=== PATIENT | female | born 1985 | race Caucasian/White ===

== ENCOUNTER → 2017-12-09 09:12 | Outpatient (CLI) | payer MEDICAID, SELFPAY ==
--- NOTE | 2017-12-09 09:19 | RAD_ITS ---
XR Knee Complete 4 Views or More INDICATION: bilateral knee pain COMPARISON: None TECHNIQUE: 4 views of the left knee including weightbearing FINDINGS: The osseous structures are intact and well aligned. Joint spaces are preserved. No significant joint effusion noted. RAD/Knee 4 or More Views IMPRESSION: Negative plain film examination of the left knee. at 2025 Reported and signed by: Sarah Alcocer MD Electronically Signed: Sarah Alcocer MD at 19:23 EST Tel , Service support ,
--- NOTE | 2017-12-09 09:19 | RAD_ITS ---
XR Knee Complete 4 Views or More INDICATION: bilateral knee pain COMPARISON: None TECHNIQUE: 4 views of the right knee FINDINGS: The osseous structures are intact and well aligned. Joint spaces are preserved. There are no significant degenerative changes. RAD/Knee 4 or More Views IMPRESSION: Negative plain film examination of the right knee. at 0046 Reported and signed by: Sarah Alcocer MD Electronically Signed: Sarah Alcocer MD at 23:45 EST Tel , Service support ,
== END ==
PROVIDERS: Visit Provider Orthopaedic Surgery
DX: M25.561 Pain in right knee (principal); M25.562 Pain in left knee
CPT/HCPCS: 73564

== ENCOUNTER → 2018-05-29 07:17 | Outpatient (CLI) | payer MEDICAID, SELFPAY ==
--- NOTE | 2018-05-29 07:19 | MRI_ITS ---
STUDY: MRI RIGHT KNEE REASON FOR EXAM: Anterior knee pain and grinding for a few years, no specific injury. TECHNIQUE: Standardized fat and water weighted pulse sequences were obtained in all 3 orthogonal planes. COMPARISON: Radiographs 12/09/2017. FINDINGS: Normal medial meniscus. Normal hyaline cartilage of the medial femorotibial compartment. Normal medial femoral condyle and tibial plateau. Normal medial collateral ligamentous complex (MCL). Normal distal semimembranosus, gracilis and semitendinosus tendons. Normal lateral meniscus. Normal hyaline cartilage of the lateral femorotibial compartment. Normal lateral femoral condyle and tibial plateau. Normal proximal tibiofibular articulation. Normal lateral collateral (fibular) ligament. Normal popliteus tendon. Normal biceps femoris tendon. Normal anterior cruciate ligament (ACL). Normal posterior cruciate ligament (PCL). There is mild lateral tilt and slight lateral subluxation of the patella (T2 axial image 13). Normal hyaline cartilage of the patellofemoral compartment. Normal medial and lateral patellar retinaculum. Normal quadriceps tendon. Normal patellar tendon. There is mild edema in Hoffa's fat pad inferior to the lateral aspect of the patellofemoral articulation (T2 sagittal image 6; T2 axial images 16, 17). There is a minimal volume of fluid in the knee joint. The soft tissues are unremarkable. There is a small cyst in the proximal tibia at the insertion site of the posterior cruciate ligament. MRI/Lower Ext Joint Only (Routine) IMPRESSION: Mild lateral tilt and slight lateral subluxation of the patella with mild edema in Hoffa's fat pad inferior to the lateral aspect of the patellofemoral articulation, suggestive of patellofemoral friction syndrome. No demonstrated meniscal tear. Electronically Signed: Kd Rollins MD at 10:11 EDT Tel , Service support ,
== END ==
PROVIDERS: Family Provider Family Medicine; PCP Family Medicine; Visit Provider Orthopaedic Surgery
DX: M22.2X1 Patellofemoral disorders, right knee (principal); M25.561 Pain in right knee; M23.91 Unspecified internal derangement of right knee
CPT/HCPCS: 73721

== ENCOUNTER 2018-06-25 12:00 | Day surgery (SDC) | payer MEDICAID, SELFPAY ==
[2018-06-25] VITALS (7 sets, daily range): BP systolic 112–131; BP diastolic 74–89; PULSE 72–107; RESP 16–22; TEMP 36.4–36.7; O2SAT 95–100; BMI 31.9
[2018-06-25] MEDS: Cefazolin 2 GM in 0.9% Normal Saline 100 ML IV (15:14)
--- NOTE | 2018-06-25 15:22 | PCM.DC.ORTHO ---
Discharge Diet: No Restrictions - remove dressings in 4 days and apply bandaids to incision sites, weight bear as tolerated right leg, follow up in 2 weeks, call with concerns, elevate/ice/ankle pumps at home Discharge Activity: May Not Drive May shower in (days): 1 Ice area for (Minutes): 20 - Every hour while awake. Weight Bearing Status: Weight bearing as tolerated Keep extremity elevated above heart level: Operative Extremity Call your doctor if your incision/area has: Continuous Slow Oozing, Sudden Increased Bleeding, Increased Pain/ Swelling, Increased Redness, Foul Smelling Discharge Call your doctor if you observe: Fever of 101 or Higher, Coldness, Increased Pain, Numbness or Tingling, Change in Color, Calf discomfort Allergies/Adverse Reactions: Allergies No Known Allergies Allergy (Verified 06/18/18 14:25) Medications to take at Discharge multivitamin chewable tablet 2 tab PO QDAY 12/09/17 Hydrocodone Bitart/Apap 5-325 [[place] 5MG-325MG] 1 - 2 tablet PO Q6H PRN PRN 5 Days #40 tablet 06/25/18 Ondansetron [Zofran] 8 mg PO Q8H PRN PRN #20 tab 06/25/18 The following prescriptions were given: Hydrocodone Bitart/Apap 5-325 [[place] 5MG-325MG] 1 - 2 tablet PO Q6H PRN PRN 5 Days #40 tablet PRN Reason: Pain Ondansetron [Zofran] 8 mg PO Q8H PRN PRN #20 tab PRN Reason: Nausea Primary Care Physician: Leonie Estrella [Primary Care Provider] - Test Results: Test results from this visit will be discussed in further detail at your follow-up appointment, if applicable. Please Follow Up With: Chloe Bond, DO - [phone]
--- NOTE | 2018-06-25 15:24 | OP.PCM_ITS ---
Report of Operation Date of Procedure: 06/25/18 Pre-Operative Diagnosis: right knee patellofemoral syndrome/chondromalacia Post-Operative Diagnosis: same Surgery/Procedure Performed:: sark, pat chondroplasty, extensive synovectomy, lateral release machinist/machine builder: Jasper Clifford Type of Anesthesia:: General Anesthesiologist: Teo Izquierdo Estimated Blood Loss (mL): min Fluids Replaced: [id number] Description of Procedure: Preoperative note Patient is a 33-year-old female with continued right knee pain. MRI shows a lateral tracking right knee patella as well as chondral malacia and some impingement syndrome in the anterior lateral recess. Patient is failed conservative treatment like to proceed with right knee arthroscopy repair is indicated. Risks benefits alternatives surgery discussed with patient. Risks including but not limited to blood loss, blood clot, infection, neurovascular injury, failure procedure, loss of life and loss of limb. Patient is aware like proceed with right knee arthroscopy repair is indicated. Operative note Patient seen and examined preoperative holding area. Right leg was marked. Patient brought to the operating room placed supine on the operating table. Signing, anesthesia, antibiotics were administered. Right leg was prepped and draped in usual sterile fashion with a tourniquet around her upper thigh. Timeout was performed. We then created an anterior lateral portal with 11 blade and began our diagnostic arthroscopy. Patella was sitting quite far laterally and she had some grade 2 fibrillated changes on the medial facet as well as the inferior pole of the patella. We then created an anterior medial portal under direct visualization. Her medial femoral condyle medial tibial plateau and medial meniscus were intact and stable to probing. Her ACL and PCL were present within the notch. There are no loose bodies in her gutters. Her lateral meniscus was intact stable probing her lateral femoral condyle lateral tibial plateau were intact as well. She had extensive synovitis in the anterior medial anterior lateral gutters were which were resected with a shaver and a burner. She still sat laterally after and we also did a patella chondroplasty with a shaver. We then performed a lateral release. We then make sure that we coagulated bleeders that we did see. After performed her lateral after performing her right lateral release she had better patellofemoral tracking and centralized the patella perfectly. We then irrigated the knee with Sterile Saline. The Portals Were Closed with Interrupted 4-0 Nylon Suture Sterile Dressings Were Applied. Patient Tolerated Procedure Well There Are No Comp Occasions Patient Transferred Her to Recovery Room in Stable Condition. Tourniquet Was Deflated for Total Working Time of24 mins. Postoperative note Weight-bear as tolerated right leg Ice as much as possible next ankle pumps and elevate as discussed preoperatively Pictures given to family Call with increased pain numbness tingling or further issues arise Follow-up in 2 weeks Pharmacy has prescriptions as This note was generated with [employer] dictation software. It may contain incorrect words, spelling, and punctuation that were not noted in checking the note before signing.
[2018-06-25] MEDS: Bupiv/Epi 0.5% Mpf 30 ML Vial (16:00)
[2018-06-25] MEDS: Mupirocin Ointment 22gm Tube 1 APPLIC (16:00)
== END 2018-06-25 18:57 | disposition home or self-care (01) ==
LOC: SDC 12:01 → AC 12:06
PROVIDERS: Family Provider Family Medicine; PCP Family Medicine; Visit Provider Orthopaedic Surgery
PROC: (CPT 27427; principal; 2018-06-25 13:15)
DX: M22.2X1 Patellofemoral disorders, right knee (principal); M22.8X1 Other disorders of patella, right knee; K21.9 Gastro-esophageal reflux disease without esophagitis; Z98.51 Tubal ligation status
CPT/HCPCS: 29873; 29876; 64447; J7120; A4216; J2405

== ENCOUNTER → 2018-07-08 08:57 | Outpatient (CLI) | payer MEDICAID, SELFPAY ==
--- NOTE | 2018-07-08 09:00 | VDLE_ITS ---
Reason For Study: RLE swelling RIGHT GSV is normal. CFV is compressible, spontaneous, phasic, competent and demonstrates normal augmentation. FV is compressible, spontaneous, phasic, competent and demonstrates normal augmentation. POP V is compressible, spontaneous, phasic, competent and demonstrates normal augmentation. T/P Trunk is compressible. PTV is compressible. RT PerV is compressible. Procedure Exam performed in department. The exam was diagnostic. A preliminary report was called and/or faxed to Dr. Bond @ [phone] @ 9:30 am. Interpretation Summary Deep veins of the right lower extremity are patent and compressible segmentally. There is no evidence of right lower extremity deep vein thrombosis. Valvular competence appears intact within the proximal deep venous system on the right . The right greater saphenous vein appears patent and compressible segmentally. Ordering Physician: Chloe Bond Referring Physician: Leonie Estrella Performed By: Diana Crawley, RACHEL, RVT
== END ==
PROVIDERS: Family Provider Family Medicine; PCP Family Medicine; Visit Provider Orthopaedic Surgery
DX: M79.89 Other specified soft tissue disorders (principal)
CPT/HCPCS: 93971

== ENCOUNTER → 2020-05-30 10:58 | Outpatient (CLI) | payer MEDICAID, SELFPAY ==
--- NOTE | 2020-05-30 10:59 | RAD_ITS ---
STUDY: X-RAY - RIGHT KNEE REASON FOR EXAM: Female, 35 years old. KNEE PAIN TECHNIQUE: 4 view(s) of the knee. COMPARISON: None. FINDINGS: Normal visualized distal femur. Normal visualized proximal tibia and fibula. Normal proximal tibiofibular articulation. Normal medial femorotibial compartment. Normal lateral femorotibial compartment. Normal patellofemoral articulation. The soft tissue structures are unremarkable. RAD/Knee 4 or More Views IMPRESSION: Normal x-ray examination of the knee. Electronically Signed: Sean Carrington, at 11:33 EDT , Service support ,
--- NOTE | 2020-05-30 10:59 | RAD_ITS ---
STUDY: X-RAY - LEFT KNEE REASON FOR EXAM: Female, 35 years old. KNEE PAIN TECHNIQUE: 4 view(s) of the knee. COMPARISON: None. FINDINGS: Normal visualized distal femur. Normal visualized proximal tibia and fibula. Normal proximal tibiofibular articulation. Normal medial femorotibial compartment. Normal lateral femorotibial compartment. Normal patellofemoral articulation. The soft tissue structures are unremarkable. RAD/Knee 4 or More Views IMPRESSION: Normal x-ray examination of the knee. Electronically Signed: Sean Carrington, at 11:32 EDT , Service support ,
== END ==
PROVIDERS: PCP Family Medicine; Referring Provider Physician Assistant; Visit Provider Physician Assistant
DX: M25.561 Pain in right knee (principal); M25.562 Pain in left knee
CPT/HCPCS: 73564

== ENCOUNTER 2022-11-21 14:00 | Outpatient (RCR) | payer MEDICAID, SELFPAY ==
--- NOTE | 2022-09-27 09:59 | HP.PTEVAL ---
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 Date of Evaluation: 09/27/22 Physical Therapist: Mahendra Pemberton - Visit Plan Frequency: 2x /Week Duration: 6 Weeks Plan: Continue with hip, core, and back strengthening. Find direction of preference for right leg if able. Use manual therapy for pain control. - Subjective Pt. is a 37 y.o. female who has been having bilateral hip pain with right worse than left which has been going on since July with no specific injury that she is aware of. Pt. PLOF includes history of hysterectomy this past summer and chronic back pain. She had x-ray of her hips which showed mild uncovering of lateral aspect of the femoral head and mild degenerative changes of pubic symphysis. Pt. will occasionally get radicular pain/numbness down her right leg to her foot which happens a couple times a week. Pt. denies any change in her bowel or bladder function or unexplained weight loss. She has difficulty with ascending/descending stairs, sitting longer than 30 minutes, standing/walking longer than 20-30 minutes, sleeping, lifting things, pushing/pulling, squatting, housework, and yard work. Pt. is currently unemployed but finished school for [employer]. Her goal with physical therapy is to have less pain and figure out what is going on with her hip. She has had previous physical therapy many years ago for her back. Pt. rates right hip and upper leg pain at 4/10 currently, at worst 8/10, at best 3/10 and describes the pain as dull, burning, and achy. She is currently taking Prednisone. Her PMH includes cervical cancer, hysterectomy, right lateral release of knee in 2018, chronic back pain, tubal ligation, gall bladder removed, link surgery for esophagus, fatty lipoma from back removed, skin cancer, and tonsillectomy. Pt. lives with her family. Her hobbies include baking, crafting, and going to concerts. - Objective Posture- Good posture in standing. Palpation- Tenderness over right iliac crest area and whole lumbar spine area. Lumbar flexion x 10- WNL and no change in pain in right upper leg. Lumbar extension x 10- WNL and no change in pain in right upper leg. SB to left and right x 10- WNL and no change in pain in right upper leg. Lumbar rotations- more right hip pain with rotation to left. No change in pain. Hip PROM- WNL bilaterally. Mild tight hamstrings bilaterally. Pelvis and leg length normal in supine. Left hip strength flexion 4+/5, abduction 5/5, adduction 5/5, extension 4+/5, knee flexion 5/5, knee extension 5/5, ankle DF 5/5, PF 5/5. Right hip strength flexion 4+/5, abduction 4+/5, adduction 4+/5, extension 4+/5, knee flexion 5/5, knee extension 5/5, ankle DF 5/5, PF 5/5. Sensation- WNL bilateral lower extremities. Gait- Pt. ambulates with no gait deviations. Special tests- Straight leg raise [-], Well's leg raise [-], Hip scour [+], Hip quadrant [+], MIKE's [+] - Balance/Special Test Scores Lower Extremity Functional Score: 37 - Goals Goal 1:: Pt. will be able to sit for at least 1 hour with pain < 3/10. Goal Time Frame: 4-6 Weeks Goal 2:: Pt. will be able to sleep a full night with no pain. Goal Time Frame: 4-6 Weeks Goal 3:: Pt. will be able to stand for at least 30 minutes with pain < 3/10. Goal Time Frame: 4-6 Weeks Goal 4:: Pt. will be able to lift at least 20# with proper body mechanics and no pain. Goal Time Frame: 4-6 Weeks Goal 5:: Pt. will rate pain at worst at 3/10 with ADL's. Goal Time Frame: 4-6 Weeks Goal 6:: Pt. will improve LEFS score < 40% disability in order to improve ADL's. Goal Time Frame: 4-6 Weeks - Rehabilitation Potential Physical Therapy Diagnosis: Decreased core/back/hip strength and pain Rehabilitation Potential: Good - Anticipated Interventions Patient/Client Instruction: Educate patient on: Condition, Plan of Care, Benefits of Fitness Program For the Purpose of:: To decrease pain, To improve ability to perform ADL's, To improve performance and independence with ADL's, To assume or resume ADL's, To improve tolerance to ADL's Therapeutic Exercise to Include: Strength training, Body mechanics, Postural training, Active ROM, Dynamic Lumbar Stabilization, Ingrid Exercises Comment: Continue with hip, core, and back strengthening. Find direction of preference if having radicular symptoms in right leg. For the Purpose of:: To decrease pain, To improve muscle performance and motor function, To improve ability to perform ADL's, To improve performance and independence with ADL's, To assume or resume ADL's, To improve tolerance to ADL's Functional Training to Include: ADL Training, Functional home training For the Purpose of:: To improve ability to perform ADL's, To improve performance and independence with ADL's, To assume or resume ADL's, To improve tolerance to ADL's Manual Therapy Techniques to Include: Mobilization, Soft tissue mobilization For the Purpose of:: To decrease pain, To improve ability to perform ADL's, To improve performance and independence with ADL's, To improve tolerance to ADL's Pelvic traction prone: Yes Pelvic traction supine: Yes For the Purpose of:: To decrease pain, To improve ability to perform ADL's, To improve performance and independence with ADL's, To assume or resume ADL's, To improve tolerance to ADL's Thank you for the opportunity to evaluate your patient. For Medicare and Medicare HMO plans, please review the plan of care and approve it. It will need to be FAXED BACK to us at [phone] for Medicare purposes. For Medicare only, by signing this I certify the plan of care. Please let me know if there are questions or concerns regarding this plan of care. Physician Signature: Date:
--- NOTE | 2022-11-21 13:55 | HP.PTDCSUM ---
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 Discharge Date: 11/21/22 Please see the following information for a summary of their discharge status. Subjective: Booker fell off roof and she had to take care of him and that is why the delay. Did not have time to see doctor due to booker's injury. Been doing home exercises for all but two weeks after booker's injury. Exercises are not helping pain at all. R hip to 8/10 at times for unknown reason. Activities are pretty normal but pain increases with steps, laundry, sitting in car and she works through it. L hip is doing well. Has not seen ortho or any other doctor and does not know what the next step is. No relief from therapy when she was in. Right Hip Pain Intensity (Out of 10): 3 % Improvement: 0 Objective/Function: ROM is WNL, some pain with FADDIR on R and max tender over gluteal attachment on pelvis R. Walking well adn without antalgia, steps reciprocally but painful. Overall has been compliant with HEP streteching and strengthening but is not feeling any better. Goal 1:: Pt. will be able to sit for at least 1 hour with pain < 3/10. Goal 2:: Pt. will be able to sleep a full night with no pain. Goal Progress: Not Progressing Goal 3:: Pt. will be able to stand for at least 30 minutes with pain < 3/10. Goal Progress: Not Progressing Goal 4:: Pt. will be able to lift at least 20# with proper body mechanics and no pain. Goal Progress: Not Progressing Goal 5:: Pt. will rate pain at worst at 3/10 with ADL's. Goal Progress: Not Progressing Goal 6:: Pt. will improve LEFS score < 40% disability in order to improve ADL's. Goal Progress: Not Progressing Plan: d/c, pt to contact doctor regarding next step. Discharge Comments: Pt to contact doctor for next appropriate step due to not improving despite consistency with HEP If there are questions or concerns regarding this patient's physical therapy, please feel free to call me at [phone]. Thank you for the referral of this patient. Sincerely, Rodney Moore, DPT, OCS, CSCS Balance/Gait/Functional tests - Balance/Special Test Scores Lower Extremity Functional Score: 32
== END 2022-11-21 19:00 | disposition home or self-care (01) ==
LOC: PT 14:00
PROVIDERS: PCP Family Medicine; Referring Provider Nurse Practitioner; Visit Provider Nurse Practitioner
DX: Q65.89 Other specified congenital deformities of hip (principal)
CPT/HCPCS: 97110; 97140; 97162; 97164

== ENCOUNTER 2025-10-17 21:46 | Emergency (ER) | payer MEDICAID, SELFPAY ==
[2025-10-17 21:46] VITALS: BP 176/97; PULSE 126; RESP 22; TEMP 36.6; O2SAT 98; BMI 26.2
--- NOTE | 2025-10-17 21:49 | ED.VIS.CHEST ---
HPI History of Present Illness Chief Complaint: Chest Pain PFSH PFS Home Medications ?Medication ?Instructions ?Recorded ?Last Taken ?Type phentermine 37.5 mg tablet 37.5 mg PO DAILY 10/17/25 Unknown History topiramate 25 mg tablet 75 mg PO QHS 10/17/25 Unknown History Allergy/AdvReac Type Severity Reaction Status Date / Time No Known Allergies Allergy Verified 10/17/25 21:46 Family History Father Hypertension Surgical History (Updated 06/25/18 @ 16:[address] Chloe Bond, DO) History of cholecystectomy H/O dilation and curettage H/O wisdom tooth extraction fatty lipoma removal Social History (Updated 05/30/20 @ 13:45 by DIANNE Hurd) Smoking Status: Never smoker alcohol intake: current alcohol intake frequency: a few times a month EXAM Physical Exam Const Vital Signs: 10/17/25 21:46 Temperature 97.8 F Temperature Source Oral Pulse Rate 126 H Respiratory Rate 22 H Blood Pressure 176/97 H Blood Pressure Mean 123 Pulse Ox 98 Oxygen Delivery Method Room Air MDM MDM MDM Narrative Medical decision making narrative: HISTORY OF PRESENT ILLNESS: Chief complaint: Chest pain 40-year-old female with no significant past medical history presents with chest pain. She further states she midsternal chest pain is nonradiating. Sharp is not pressure-like. Occurred 15 minutes prior to arrival after she was eating. Denies bleeding diathesis. Denies cough fever or chills. Denies leg swelling. Denies family history of heart attacks. Denies smoking or other drug use. The patient denies recent surgery in the last 4 weeks or immobilization in the last 3 days, denies previous diagnosis of DVT or PE, hemoptysis, unilateral leg swelling or malignancy with treatment the last 6 months or palliative. No estrogen use noted. Patient denies sudden onset of pain, no tearing sensation, no migratory symptoms, no new numbness, weakness or loss of sensation. Patient denies family history or personal history of Connective tissue disorders (Marfan's Syndrome, Silvia Danlos etc). REVIEW OF SYSTEMS: Pertinent positives: Chest pain Pertinent negatives: As per HPI PHYSICAL EXAM: Nursing triage notes reviewed, Vital signs reviewed Constitutional: please see mdm HENT: MMM Eyes: Pupils equal round and reactive to light, Extraocular muscles intact Neck: No stridor, no JVD, full neck ROM Lungs: Clear to auscultation, No wheezing or rales. No increased work of breathing, no conversational dyspnea, no accessory muscle use, no nasal flaring. No respiratory distress noted Heart: Fast rate and rhythm, No murmurs, No rubs and No gallops, 2+ distal pulses (radial, femoral, posterior tibial) in all extremities Abdomen: Soft, there is no tenderness, rigidity, rebound or guarding, no obvious peritoneal signs, no palpable pulsatile abdominal masses, no auscultated abdominal bruit : No CVAT Extremities: No edema Neuro: No new focal neurological deficits, cranial nerves II through XII intact, 5/5 strength in all present extremities. Intact sensation to light touch in all present extremities, 2+ reflexes bilateral patella tendons. Skin: No rash or lesions noted MEDICAL DECISION MAKING: Chief Complaint: please see HPI External records reviewed: Reviewed prior cardiovascular testing. No recent cardiac catheterizations, echocardiograms or stress test noted. Reviewed prior duplex ultrasound from 2018. No DVT noted on this study. Factors affecting care: As per HPI Social determinants of health: Denies illicit drugs History obtained from others: Family Consults: none MDM Narrative: The patient was initially hypertensive blood pressure 176/97, tachycardic at a heart rate of 126, tachypneic with respiratory 22, she is afebrile saturating 98% on room air. Exam without focal cardiopulmonary abnormalities. I considered the following differential diagnosis: ACS, arrhythmia, anemia, electrolyte disturbance, toxic ingestion, PE, aortic dissection, pericarditis, pneumothorax amongst others I obtained a broad lab and imaging evaluation including D-dimer to further determine if the patient was suffering from a life-threatening etiology. Initially treated patient with oral aspirin for pain relief and mortality benefit ALL IMAGES (IF OBTAINED) HAVE BEEN PERSONALLY REVIEWED AND INTERPRETED BY MYSELF. EKG with sinus tachycardia, normal axis, normal intervals, no STEMI CBC without leukocytosis, severe anemia, no thrombocytopenia. High-sensitivity troponin is negative, no evidence of myocardial ischemia BMP with mild hypokalemia, no other significant electrolyte abnormalities, no acute kidney injury D-dimer negative making VTE and aortic dissection less likely. Upon reassessment patient's tachycardia and hypertension resolved with a heart rate of 82 and a blood pressure 130/90. Awaiting delta troponin for final disposition. If negative patient will be appropriate for discharge home. The patient and/or family, caregivers express understanding. The patient and/or family, caregivers agrees with the plan. Shared decision making: I will have a discussion with the patient and or visitors regarding risk/benefits of further testing or admission. They will be made aware of of the risk/benefits inherent in this decision they will be given the opportunity to voice understanding. Total critical care time today provided was at least 0 minutes. This excludes separately billable procedures. Critical care time (if documented) is secondary to the patient having high probability of clinically significant/life threatening deterioration in the patient's condition which required my urgent intervention. Impression: 1. Chest pain 2. Tachycardia Dispo: The patient was signed out to the overnight physician pending delta troponin and final disposition This note was generated with [employer] dictation software. It may contain incorrect words, spelling, and punctuation that were not noted in review of the chart prior to signing. Discharge Plan Triage Chief Complaint: Chest Pain ED Provider: Vin Fields Dx/Rx/DC Orders Prescriptions: No Action phentermine 37.5 mg tablet 37.5 mg PO DAILY topiramate 25 mg tablet 75 mg PO QHS Primary Care Provider: Luis Hart Referrals: Leonie Estrella MD [Non-Staff, Medical] Print Language: Bangladeshi
--- NOTE | 2025-10-17 21:51 | EKG12_ITS ---
Test Reason : CP Blood Pressure : */* mmHG Vent. Rate : 114 BPM Atrial Rate : 114 BPM P-R Int : 134 ms QRS Dur : 88 ms QT Int : 332 ms P-R-T Axes : 69 35 34 degrees QTcB Int : 457 ms Sinus tachycardia Possible Left atrial enlargement Nonspecific ST abnormality Abnormal ECG Confirmed by Edwin Seaman ([id number]), editorial cartoonist LORA GREENBERG ([id number]) on 10/19/2025 9:58:38 AM Referred By: TA Confirmed By: Edwin Seaman
--- NOTE | 2025-10-17 22:10 | RAD_ITS ---
PROCEDURE: CHEST 1 VIEW (PORTABLE) 10/17/2025 REASON FOR EXAM: CHEST PAIN TECHNIQUE: Frontal view of the chest. FINDINGS: No focal consolidation. No pleural effusion or pneumothorax. Cardiac silhouette is within normal limits. No acute fractures. RAD/Chest 1 View (Portable) IMPRESSION: No focal consolidations. Reading Location: [facility]
[2025-10-17 22:15] LABS: Hematocrit 41.7 % (37-47); Hemoglobin 13.8 g/dL (12.0-15.0); Immature Granulocytes Count 0.030 X10^3/uL (0.0-0.0); Mean Corp Hgb Conc 33.1 g/dL (32-36); Mean Corpuscular Volume 90.5 fL (81-99); Mean Platelet Vol. 8.8 fl (6.2-12.0); NRBC Flagged by Analyzer 0 % (0-5); Platelet Count 359 K/mm3 (150-450); RBC Distribution Width CV 12.2 % (11.6-14.6); RBC Distribution Width SD 40.1 fl (35.1-43.9); Red Blood Count 4.61 M/mm3 (4.2-5.4); White Blood Count 6.3 K/mm3 (4.4-11.0)
[2025-10-17] MEDS: 0.9% Normal Saline (500mL Bag) 500 ML 1000 ML IV (22:23)
[2025-10-17 22:37] LABS: Anion Gap 10 (7-18); BUN 10 mg/dL (4-19); BUN/Creat Ratio 12.2 RATIO (10-20); Calcium,Total 9.1 mg/dL (7.6-11.0); Carbon Dioxide 25.3 mmol/L (20.0-29.0); Chloride 107 mmol/L (96-106); Estimated Creatinine Clearance 86.42 ml/min (50-250); Glucose 104 mg/dL (70-99); Potassium 3.3 mmol/L (3.5-5.1); Troponin T High Sensitivity < 6 ng/L (<=14)
--- OUTSIDE RECORDS SUMMARY | 2025-10-17 22:39 | XMS RPT_ITS | CCD ---
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 Name Role Phone Logan Thomas Primary Care Provider Sameer WOODS, Leonie Luke Primary Care Provi mary anne Logan Thomas MD Primary Care Provider Unavailable Primary Care Provider UnavailLuis Estrada MD Primary Care Provider Logan Thomas Primary Care Provider Luis Hart MD Primary Care Provider Logan Thomas Primary Care Provider Luis Hart MD Primary Care Provider Logan Thomas Primary Care Provider Luis Hart MD Primary Care Provider Older, Dariela Referring Unavailable Filipe, Dariela Attending Unavailable Leonie Estrella Primary Care Unavailable Logan Thomas Primary Care Provider THU JOYNER Attending Unavailable LUIS HART Primary Care Unavailable Older OPERATIONS ADMINISTRATOR - ELECTRIC FRYING PAN REPAIRER, Dariela Perez Primary Care Provider Luis Hart MD Primary Care Provider PROVIDER, UNKNOWN Referring Unavailable LUIS HART Primary Care Unavailable DARIELA SINGLETARY Attending Unavailable LUIS HART Primary Care Unavailable DARIELA SINGLETARY Referring Unavailable LUIS HART Primary Care Unavailable LINDSEY CLAY Attending Unavailable HART, LUIS Pena Primary Care Unavailable Henry OPERATIONS ADMINISTRATOR.FINANCIAL MANAGER, Dariela Perez Unavailable YULISSA CABRERA Referring Unavailable HART, LUIS Pena Primary Care Unavailable DEBORAHYULISSA HENDERSON Attending Unavailable HART, RABIA Primary Care Unavailable JOYNER, THU Attending Unavailable HART, RABIA Primary Care Unavailable HART, RABIA Referring Unavailable HART, RABIA Primary Care Unavailable HART, RABIA Primary Care Unavailable JOYNER, THU Attending Unavailable HART, RABIA Primary Care Unavailable JOYNER, THU Attending Unavailable DEBORAH, YULISSA Attending Unavailable HART, LUIS Pena Primary Care Unavailable DEBORAH, YULISSA Attending Unavailable DEBORAH, YULISSA Referring Unavailable HART, LUIS Pena Primary Care Unavailable Allergies Allergy Classification Reported Allergen(s) Allergy Type Date of Onset Reaction(s) Facility Opioid Agonists (3 sources) Morphine Drug Allergy 12-14-2019 Shortness Of Breath, Itching, Anxiety, Dizziness, Nausea And Vomiting [facility] Work Phone: (20 sources) Morphine; Translations: [MORPHINE] Drug Allergy 12-14-2019 Shortness Of Breath, Itching, Anxiety, Dizziness, Nausea And Vomiting Counselor, [place] Medications Current Medications Medication Drug Class(es) Dates Sig (Normalized) Sig (Original) acetaminophen 325 mg / HYDROcodone bitartrate 5 mg oral tablet (2 sources) Opioid Agonist Start: 05-01-2022 End: 05-04-2022 HYDROcodone-acetami nophen (NORCO) 5-325 MG per tablet Indications: S/P hysterectomy Take 1 tablet by mouth every 6 hours as needed for Pain for up to 3 days. Intended supply: 3 days. Take lowest dose possible to manage pain 20 tablet 0 05/01/2022 05/04/2022 Active Start: 09-01-2020 End: 09-08-2020 take 10 mL by mouth every six hours as needed for pain, then take 15 mL by mouth as needed for pain HYDROcodone-acetaminophen 7.5-325 MG per 15ML solution Indications: Chronic tonsillitis Take 10 mLs by mouth every 6 hours as needed for Pain for up to 7 days. 240 mL 0 09/01/2020 09/08/2020 Active acetaminophen 325 mg / oxyCODONE hydrochloride 5 mg oral tablet (1 source) Opioid Agonist Start: 12-24-2019 End: 12-31-2019 take 1 tablet by mouth every six hours as needed for pain, then take 1 tablet by mouth as needed for pain oxyCODONE-acetaminophen (PERCOCET) 5-325 MG per tablet Indications: Hiatal hernia Take 1 tablet by mouth every 6 hours as needed for Pain for up to 7 days. Intended supply: 7 days. Take lowest dose possible to manage pain 28 tablet 0 12/24/2019 12/31/2019 Active ALPRAZolam 0.25 mg disintegrating oral tablet (1 source) Benzodiazepine Start: 05-01-2022 ALPRAZolam (NIRAVAM) dissolvable tablet 0.25 mg carotid bruit. Cardiovascular: regular rate and rhythm, normal S1 and S2, no rub, murmurs, or gallop. Respiratory: normal breath sounds, no wheezes or crackles. No chest wall deformity or tenderness. Abdomen: soft. Pertinent negatives noted - not tender. Extremities: no deformity, no edema or tenderness, no joint swelling or clubbing. Neurological: normal cognition and motor skills. Gait normal. No weakness or sensory deficit. PAIN ASSESSMENT: Pain Pain Level: 4 Pain Location: Back-Upper (neck, shoulders) Description: Dull, Aching, Radiating Duration Amount of Time: 10 Duration Units: Years Frequency: Continuous Intervention/Comfort measure: Exercise (stretching) VITALS: BP 108/72 Pulse 102 Temp (Src) 96.9 (Temporal) Resp 16 Ht 5' 5 (1.65m) Wt 170 lb (77.1kg) SpO2 98% LMP 05/01/2022 BMI 28.29 kg/(m^2). Diagnostic tests reviewed for today's visit: Lab Value Units Date High Low HB 12.5 g/dL 01/01/2023 15.5 11.5 HCT 37.6 % 01/01/2023 46.0 36.0 WBC 14.55 k/uL 01/01/2023 11.00 3.70 PLT 261 k/uL 01/01/2023 400 150 NA 134 mmol/L 01/01/2023 144 136 K No results within date range. GLUC 141 mg/dL 01/01/2023 99 74 BUN 7 mg/dL 01/01/2023 21 7 CREAT 0.71 mg/dL 01/01/2023 0.96 0.58 PTSEC No results within date range. INR No results within date range. APTT No results within date range. ALT No results within date range. AST No results within date range. TBILI No results within date range. TSH No results within date range. Lab Value Units Date High Low HCGQT No results within date range. UHCG No results within date range. HCG, BODY* No results within date range. Lab Value Units Date High Low ABORHD No results within date range. ABSCREEN No results within date range. No results found for: HBA1C No results found for this or any previous visit (from the past 8760 hour(s)). No results found for this or any previous visit (from the past 47753 hour(s)). Assessment Patient has the following medical conditions which may affect john-operative course: Paraesophageal hernia Assessment: s/p eladia 12/2022 Skin cancer Assessment: BCC/SCC s/p excision Dysphagia Assessment: Endorses stacking sensation to occur intermittently Nicotine vapor product user Assessment: daily, denies asthma or COPD Luther Activity Status Index: METS: Climb a flight of stairs or walk up a hill (5.50 METs) DASI Score: 5.5 Patient denies any chest pain or undue shortness of breath with the above physical activity. Clinical Frailty Scale: 1. Very fit STOP-Bang Score: Denies snoring loudly Denies feeling tired, fatigued, or sleepy during the daytime Has not been observed to stop breathing or choking/gasping during sleep Denies having high blood pressure BMI less than or equal to 35 kg/m^2 Patient 50 years old or younger Does not have a large neck Non-male patient STOP-Bang Score: 0 [id number] Score: Age: <65 Sex: female CHF history: No Hypertension history: No Stroke/TIA/thromboembolism history: No Vascular disease history: No Diabetes history: No [id number] Score: 1 ARISCAT Score: Age: <=50 Preoperative SpO2: >=96% Respiratory infection in the last month: No Preoperative anemia: Yes Surgical incision: peripheral Duration of surgery: >3 hrs Emergency procedure: No ARISCAT Score: 34 ASA Class: 2 ANESTHESIA FINDINGS: Intubation History: No history of difficult intubation Significant Anesthesia Considerations: potential postop nausea/vomiting Airway History: No history of difficult airway I - PHYSICAL EVALUATION AIRWAY Patient intubated: No. Tracheostomy tube not present Mallampati: II. TM distance: >3 FB. Neck ROM: full ROM without neurological symptoms. Mouth opening: adequate. Short neck: no. Thick neck: no Jones present: no Lip Bite Test: II Microretrognathia/Micronagthia/Recesse d Chin: No DENTAL Dental findings: teeth intact. II - ANESTHESIA PLAN ASA Score: 2 Anesthetic Plan: other Anesthetic plan additional comments: *PACC/TCI - anesthesia choice. Beta Cipriano Monitoring Plan Post Procedure Analgesic Plan Informed Consent Anesthetic risks, benefits, alternatives, personnel and consent discussed: yes. Patient / Responsible Alliance Party agrees to proceed: yes Patient / Surrogate agrees to blood products: blood products not planned Discussed the possibility of lip / dental damage: yes Prepared for Surgery: optimally prepared for surgery, pending [see comment]. labs CONSULTS: Patient does not require consults for optimization at this time Planned Anesthetic: other anesthesia choice The Following Tests/Procedures Have Been Initiated: Orders Placed This Encounter >CBC + AUTO DIFF Standing Status: Future Number of Occurrences: 1 Standing Expiration Date: 05/20/2023 >BMP Standing Status: Future Number of Occurrences: 1 Standing Expiration Date: 05/20/2023 Instructions Given to Patient: Instructions located in the after visit summary. Patient given verbal and written preop instructions and voices comprehension and compliance. SIGNATURE: Mirta Broderick APRN.CNP PATIENT NAME: Josseline Willard DATE: March 20, 2023 TIME: 10:38 AM PAGER/CONTACT #: documented in this encounter [facility] 01-23-2023 History of Present illness Narrative SURGICAL SERVICES HISTORY AND PHYSICAL EXAMINATION SERVICE DATE: 01/23/2023 SERVICE TIME: 10:37 AM PRIMARY CARE PHYSICIAN: Luis Hart MD SUBJECTIVE CHIEF COMPLAINT: follow up HISTORY OF PRESENT ILLNESS: Ms. Willard is a 37 year old female who is well-known to me who presents for follow up after 12/31/22 laparoscopic PEHR with toupet fundoplication. Today she reports she is doing very well. She is back to exercising. She denies heartburn/acid reflux. She endorses intermittent nausea and sour stomach some mornings and is requesting zofran for this. She endorses intermittent stacking sensation - this occurs mostly in the morning and with initial bites and then it usually resolves. She states that while this sensation is present, it is less severe than with the linx. 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 Goodson 48 HOUR PH STUDY 12/20/2022 Dr. Cabrera D AND Kerry 2012 EGD 06/02/2020 Dr. Goodson EGD numerous EGD 11/09/2019 Dr. Goodson EGD WITH BIOPSY(S) 04/14/2018 Grade A reflux esophagitis, bile gastritis, neg H Pylori EGD WITH BIOPSY(S) 12/07/2021 Dr. Durham EGD WITH BIOPSY(S) 12/20/2022 2 cm hiatal hernia; Dr. Cabrera ESOPHAGEAL DILATION (AG) x2 ESOPHAGEAL MANOMETRY 02/14/2022 Dr. Cabrera ESOPHAGEAL MANOMETRY 12/20/2022 Dr. Cabrera EXTRACTION ERUPTED TOOTH 2011 wisdom teeth F EGD WITH DILATATION 02/23/2020 Dr. Goodson F EGD WITH REMOVAL FOREIGN BODY 07/03/2022 removal of Linx device; Dr. Cabrera GASTRIC EMPTYING STUDY 09/28/2019 normal- [facility] HIATAL HERNIA REPAIR HX 12/24/2019 Dr. Goodson also did linx procedure at the same time KNEE SURGERY HX Right 06/2018 LAPAROSCOPIC CHOLECYSTECTOMY 12/04/2016 YULIA ESOPHGL SPHINCTER AUGMENT PROC PLACE DEVICE 12/24/2019 LINX placement; Dr. Hamzah BENDER RPR PARAESPHGL HRNA INCL FUNDPLSTY W/MESH 12/31/2022 Toupet; Dr. Cabrera NOSE SURGERY HX excision of Squamous cell carcinoma under nose PAST SURGICAL HISTORY OF 05/2010 lipoma removed from back PAST SURGICAL HISTORY OF Left excision of basal cell carcinoma on cheek TONSILLECTOMY HX 09/01/2020 TOTAL ABDOM HYSTERECTOMY 05/01/2022 TUBAL LIGATION HX 12/11/2010 FAMILY HISTORY: FAMILY HISTORY Problem Relation Age of Onset No Known Problems Mother Hypertension Father Hyperlipidemia Father Leukemia Paternal Grandfather Ovarian cancer Paternal Aunt 30 Colon Cancer No Family History SOCIAL HISTORY: Social History Tobacco Use Smoking status: Never Smokeless tobacco: Never Vaping Use Vaping Use: Never used Substance Use Topics Alcohol use: Yes Comment: Rarely Drug use: Never Comment: denies medical THC card MEDICATIONS: Current Outpatient Medications Medication Sig cyanocobalamin, vitamin B-12, (VITAMIN B-12 ORAL) Take by mouth once daily. ascorbic acid (VITAMIN C ORAL) Take by mouth once daily. cholecalciferol, vitamin D3, (VITAMIN D3 ORAL) Take by mouth once daily. multivit with calcium,iron,min (WOMEN'S MULTIPLE VITAMINS ORAL) Take by mouth once daily. collagen/biotin/ascorbic acid (COLLAGEN 1500 PLUS C ORAL) Take by mouth once daily. pantoprazole DR (PROTONIX) 40 mg tablet Take 1 tablet by mouth once daily. (Patient not taking: No sig reported) No current facility-administered medications for this visit. ALLERGIES: ALLERGIES Allergen Reactions Morphine Itching, Shortness of Breath COMPLETE REVIEW OF SYSTEMS: Review of Systems All other systems reviewed and are negative. OBJECTIVE PHYSICAL EXAM: [facility] 05/01/2022 Physical Exam Vitals reviewed. Constitutional: Appearance: Normal appearance. HENT: Head: Normocephalic and atraumatic. Eyes: General: No scleral icterus. Extraocular Movements: Extraocular movements intact. Conjunctiva/sclera: Conjunctivae normal. Pupils: Pupils are equal, round, and reactive to light. Cardiovascular: Rate and Rhythm: Normal rate. Pulmonary: Effort: Pulmonary effort is normal. No respiratory distress. Abdominal: Comments: Incisions c/d/i Skin: General: Skin is warm and dry. Coloration: Skin is not jaundiced or pale. Neurological: General: No focal deficit present. Mental Status: She is alert and oriented to person, place, and time. Psychiatric: Mood and Affect: Mood normal. Behavior: Behavior normal. DATA: Diagnostic tests reviewed for today's visit: Plan ASSESSMENT AND PLAN Josseline A Willard is a 37 year old female with a PMH as noted above who presents in follow up after PEHR with toupet 1. Status post laparoscopic fundoplication - ICD9: V45.89, ICD10: Z98.890 (primary diagnosis) - Overall doing well and is progressing well. - Continue Protonix for 4 weeks after surgery - okay to d/c on 01/31/23 - instructed to taper to once daily starting this week and then to every other day. 2. Esophageal dysphagia - ICD9: 787.29, ICD10: R13.19 - Endorses stacking sensation to occur intermittently - instructed to eat slower and take smaller bites and not eat and drink at the same time. Will follow up in 3 months SIGNATURE: Yulissa Cabrera MD PATIENT NAME: Josseline Willard DATE: January 23, 2023 TIME: 10:37 AM PAGER/CONTACT #: [phone] documented in this encounter [facility] 01-08-2023 Miscellaneous Notes Return in about 9 weeks (around 03/12/2023) for follow up prefers VIRTUAL No answer ,lvm documented in this encounter [facility] 01-08-2023 Instructions Thu Joyner MD - 01/08/2023 10:55 AM EDT My opinion 60 grams protein/day 64 oz/day 3 hour Rule: -last meal /snack 3 hours before sleeping ,but mostly try to be done by 7 pm --eat Rich Breakfast, high in protein hard boiled eggs/protein drinks - At least 3 hours break between each meals ,except water --sleep 7 hours at night , that means going to bed early -- drink only water ( no soda or juices) /no Alcohol consumption --cut down on coffee consumption if consuming high amounts Website :You can visit to web site for low carb recipe information as well as visual guide to low carb food: Https://www.dietdoctor.com/ ( visual guide for low carb diet) Limit carb consumption to 80- 100 grams per day. Goals: formal exercise 2-5 x/week as tolerated, start with 10 mins/day to goal of 30 minutes ( -- for exercise, you should shoot for a goal of >150 min per week initially. Depending at what level you are starting, that may seem like an unachievable task. However, the best plan is to just begin to walk or bike or do another activity that you like and track your steps per day. You do not need to pay attention to the time, but you do need to try to increase your exercise every 3 weeks. Other strength exercises, using light weights or training bands may also be useful, especially when combined with regular aerobic exercise. Studies have shown that >200min per week is best to maintain weight loss, so that would be the overall end goal.) Have 3 meals a day-protein source with each meal (structured meal planning) Food journal daily and bring it to all appointments If you want you can REPLACE one of your meals with a liquid meal or frozen meal. This is easy to start and may help with your weight. 1. Liquid meal replacement (Boost, Ensure) 2. Frozen meal (Healthy Choice, Lean Cuisine - sodium under 650mg, can always add veggies to the meal) 3. Powdered protein (Premier Protein) or meal replacement (I like a plant based meal replacement called shopandsave Nutrition - can mix w froz berries and almond milk) -- IN GENERAL - suggestions based on important of our sleep cycle called circadian rhythm and its influence on our gut microbiota and overall health tragetory 1) EAT MOST OF YOUR FOOD IN AM AND EARLY PM 2) NO EATING AT NIGHT 3) EXERCISE DURING DAY 4) BE CONSISTENT WITH MEAL STRUCTURE ie Meals at same time during the day. -- keep record of your food intake - it is easier for us to understand your eating habits and food preferences, looking into the amounts of protein, carbs, and fat in your diet. Good examples of apps to track calories are MyFITFanBoomPAL, LOSE IT. Some patient have found FOODUCATE to help with decisions around food, however choose apps that best suits you. documented in this encounter [facility] 03-21-2023 History of Present illness Narrative Images from the original note were not included. Thu Joyner MD [facility] [address], [address] [employer] - Fourth Floor [place] [id number] This Team Access Model visit is a virtual video visit due to COVID -19 Pandemic . It required patient-provider interaction for the medical decision making as documented below. Consent was obtained to complete today's distance health visit. Patient presents with: Established Patient Cc: referred by Dr. Cabrera SUBJECTIVE/HPI: Josseline Willard is a 37 year old female with PMX of overweight and GERD who presents on January 08, 2023 for medical evaluation of Non-Surgical Metabolic Weight Management . Most of her weight is in midsection Looking for ways to reduce this weight Had eladia fundoplication one week ago 12/31/[address] Cabrera Current weight 167lb down from 180 2 weeks ago due to decreased intake following surgery-was drinking mostly fluids and protein shakes Reports prior to this her diet was limited due to her symptoms Pretty active Goes to gym Average weight 180lb since 2019 Previous treatments include going to gym Watching her diet Lifestyle Factors: Diet: Do you think that you have a healthy diet? No. Feels like she can only take a few bites of something and then she feels full Overall characterization of present diet:Unstructured. How have you tried to lose weight in the past? Yes. What worked? See above . Routine Water no soda Breakfast: Egg whites Avocado salsa--mostly avocado If she eats breakfast maybe have a snack Snacks: popsicle Piece of fruit Popcorn granola Lunch: Snack: Dinner: would eat dinner if skipped breakfast Pasta Spaghetti Sharan Roast, potatoes carrots onions Rice chicken cheese Snack: After surgery Few sips of protein shake because gets fulls Staying hydrated 2 bottles 40 oz Bedtime Sleeps: 9;30/10 pm Wake up: 6-7 Exercise: Do you exercise ? Yes twice a week, 10-15 min of cardio, then some resistance training, stretches, floor ab work, 4-5 nights a week Are you able to walk up a flight of stairs or a small hill? Yes If no, why not? Patient's functional capacity is The composite complication rate of , unstable angina, DE, DVT, PE, renal failure, and stroke occurred in 16.6% of severely obese patients whose peak oxygen consumption was < 15.8 mL/kg/min but in only 2.8% of those whose cardiorespiratory fitness was >/= 15.8 mL/kg/min. By convention, 1 MET is considered equivalent to the consumption of 3.5 ml O2 kg-1 min-1 (or 3.5 ml of oxygen per kilogram of body mass per minute) and is roughly equivalent to the expenditure of 1 kcal per kilogram of body weight per hour. Sleep: Duration: > 6 hours:Yes Sleep apnea screen: deferred If patient has been diagnosed with sleep apnea, has there been significant weight gain and are there any SDB symptoms on the current CPAP/BIPAP pressure setting: Chest pain, SOB, or HUGHES: No Stress test: no History of eating disorders: negative Associated medical conditions: acid reflux Associated medications: see med list Cardiovascular risk factors: Current Outpatient Medications on File Prior to Visit Medication Sig cyanocobalamin, vitamin B-12, (VITAMIN B-12 ORAL) Take by mouth once daily. ascorbic acid (VITAMIN C ORAL) Take by mouth once daily. cholecalciferol, vitamin D3, (VITAMIN D3 ORAL) Take by mouth once daily. multivit with calcium,iron,min (WOMEN'S MULTIPLE VITAMINS ORAL) Take by mouth once daily. collagen/biotin/ascorbic acid (COLLAGEN 1500 PLUS C ORAL) Take by mouth once daily. pantoprazole DR (PROTONIX) 40 mg tablet Take 1 tablet by mouth once daily. (Patient not taking: No sig reported) No current facility-administered medications on file prior to visit. 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 Goodson 48 HOUR PH STUDY 12/20/2022 Dr. Deborah Deluca FARA Payne 2012 EGD 06/02/2020 Dr. Goodson EGD numerous EGD 11/09/2019 Dr. Goodson EGD WITH BIOPSY(S) 04/14/2018 Grade A reflux esophagitis, bile gastritis, neg H Pylori EGD WITH BIOPSY(S) 12/07/2021 Dr. Durham EGD WITH BIOPSY(S) 12/20/2022 2 cm hiatal hernia; Dr. Cabrera ESOPHAGEAL DILATION (AG) x2 ESOPHAGEAL MANOMETRY 02/14/2022 Dr. Cabrera ESOPHAGEAL MANOMETRY 12/20/2022 Dr. Cabrera EXTRACTION ERUPTED TOOTH 2010 wisdom teeth F EGD WITH DILATATION 02/23/2020 Dr. Goodson F EGD WITH REMOVAL FOREIGN BODY 07/03/2022 removal of Linx device; Dr. Cabrera GASTRIC EMPTYING STUDY 09/28/2019 normal- [facility] HIATAL HERNIA REPAIR HX 12/24/2019 Dr. Goodson also did linx procedure at the same time KNEE SURGERY HX Right 06/2018 LAPAROSCOPIC CHOLECYSTECTOMY 12/04/2016 LAPS ESOPHGL SPHINCTER AUGMENT PROC PLACE DEVICE 12/24/2019 LINX placement; Dr. Hamzah BENDER RPR PARAESPHGL HRNA INCL FUNDPLSTY W/MESH 12/31/2022 Toupet; Dr. Cabrera NOSE SURGERY HX excision of Squamous cell carcinoma under nose PAST SURGICAL HISTORY OF 05/2010 lipoma removed from back PAST SURGICAL HISTORY OF Left excision of basal cell carcinoma on cheek TONSILLECTOMY HX 09/01/2020 TOTAL ABDOM HYSTERECTOMY 05/01/2022 TUBAL LIGATION HX 12/11/2010 Any problems with anesthesia with the above surgeries: FAMILY HISTORY Problem Relation Age of Onset No Known Problems Mother Hypertension Father Hyperlipidemia Father Leukemia Paternal Grandfather Ovarian cancer Paternal Aunt 30 Colon Cancer No Family History Social History Tobacco Use Smoking status: Never Smokeless tobacco: Never Vaping Use Vaping Use: Never used Substance Use Topics Alcohol use: Yes Comment: Rarely Drug use: Never Comment: denies medical THC card ROS OBJECTIVE: Ht 165.1 cm (5' 5) Wt 76 kg (167 lb 9.6 oz) LMP 05/01/2022 BMI 27.89 kg/m BMI = Body mass index is 27.89 kg/m . Waist circumference Neck circumference Physical Exam Constitutional:. --no issues with communication during visit and demonstrates understanding via appropriate interaction, verbalizing understanding ans she consented for this visit visit encounter HEENT: Normocephalic and atraumatic. Eyes: Conjunctiva appear normal. No scleral icterus. Hearing: Is grossly intact. Neck: Range of motion appears normal. Thyroid: appears symmetric and not enlarged. Pulmonary/Chest: Effort normal. Psychiatric: Mood, memory, affect and judgment normal. Neurological: alert and oriented to person, place, and time. Reviewed principles of energy metabolism, caloric intake and expenditure, and rationale for treatment program. Also reinforced need for modified diet as discussed and increased physical activity. ASSESSMENT/PLAN: 1. Class 1 obesity with serious comorbidity and body mass index (BMI) of 30.0 to 30.9 in adult, unspecified obesity type - ICD9: 278.00, V85.30, ICD10: E66.9, Z68.30 (primary diagnosis) First visit, new pt Weight decreasing after recent surgery Eladia fundoplication At this time, we will hold off on medications since her appetite and intake is limited following hernia surgery and she has had weight loss as a result We did discuss that as she is able to progress her diet to solids that she watch her intake/focus on healthy choices Once she is able to progress her diet, we can consider therapies to help her achieve her goal weight 2. Gastroesophageal reflux disease without esophagitis - ICD9: 530.81, ICD10: K21.9 Ppi stopped Monitor recurrence of symptoms 3. Paraesophageal hernia - ICD9: 553.3, ICD10: K44.9 Recent Eladia fundoplication Thu Joyner MD I spent a total of 60 minutes on the date of the service which included preparing to see the patient, completing clinical documentation, obtaining and/or reviewing separately obtained history, performing a medically appropriate examination, counseling and educating the patient/family/caregiver, ordering medications, tests, or procedures,independently interpreting results (not separately reported), communicating results to the patient/family/caregiver and care coordination (not separately reported). documented in this encounter [facility] 01-07-2023 Miscellaneous Notes Left message to remind patient about virtual visit tomorrow morning with . Advised patient to stay logged on once on, obtain current weight and bp if possible. Did let patient know to please call to reschedule if not able to keep current appointment. documented in this encounter [facility] 01-04-2023 Miscellaneous Notes I called patient after hospital discharge home after lap Toupet procedure on 12/31/20: Swallowing: Patient reports some pain with swallowing, but it is getting better every day. Patient was able to drink broth, 1/2 protein drink, water, tea and potato soup today. Voiding/color of urine: patient reports her urine is light in color Passing flatus: yes Moving bowels: Patient had her first good formed bowel movement today. Previous just small pellets. I encouraged patient to take a dose of Miralax if she still feels like she needs to move her bowels more. Patient states her abdomen is soft and non-distended. Pain rating/use of medications: Patient has not taken any pain medication since discharge home. I usually have to crush everything and then it upsets my stomach, so I have just gone without. Patient states she has sharp pain at the site of the right incision with movement, rating it as 8 with movement, but currently rating it as 3 while walking in the store. Patient is splinting her abdomen with a pillow when she changes position. Inspection of incisions: some bruising but denies any redness, swelling or drainage. Using incentive spirometer: Reports getting incentive spirometer up to 2500 ml but not consistently. I encouraged her to continue her great work and instructed her she can discontinue use when she can get incentive spirometer up to 2500 ml consistently. Patient agreed with the plan. Physical activity: Patient walked the mall for an hour on 01/02. She is currently walking in the grocery store. Follow up appt confirmation: 01/23/[address] Cabrera. Patient clarified that her breast reduction surgery has been moved to the end of February. Patient did not receive her Zofran prescription on discharge. Patient states she does not need it at this time. I encouraged patient to call if she has any questions prior to her next appointment. Vannessa Aleixs RN documented in this encounter [facility] 01-03-2023 History of Present illness Narrative TRANSITIONAL CARE MANAGEMENT (TCM) COMMUNITY MONITORING PROGRAM Provider Action/FYI: Spoke to patient. Pt did not get zofran. Order was sent to pharmacy. Pt will call pharmacy if zofran is needed. Denies nausea or vomiting. Denies fever or chills. Still on full liquid diet. Pt has PCP appt on 05/21/23 Denies additional needs or concerns. Appointments for Next 60 Days Date Time Provider Location Dept Phone 01/08/2023 10:00 AM THU JOYNER Gen [phone] 01/21/2023 9:20 AM MRI RADIO [facility] (I-STAT/1.5T) Angela Hdez [phone] 01/23/2023 10:30 AM DEBORAHYULISSA Fanny Gen [phone] 01/30/2023 9:00 AM DIAGNOSTIC MAMMO [facility] Angela Hdez [phone] SUMMARY: Pt discharged from [facility] on 01/01/23. Admitted for: Paraesophageal hernia Patient presented to the hospital for elective surgery on 12/31/2022. Patient had a robotic sleeve gastrectomy. Postoperatively, patient tolerated their diet without nausea or vomiting. Patient's pain has been controlled and has been able to ambulate around the nursing floor. At this point patient is deemed stable to be discharged to home with follow-up with Dr. Cabrera in two weeks. Contact made with patient: Yes Hi my name is Juliocesar Sanabria RN and I am calling from the [facility] on behalf of your PCP, Luis Hart MD I understand you were recently in the hospital so I am calling to check in with you to ensure you are feeling well now that you're home. May I ask you a few questions related to your hospital stay and well-being? Yes Contact with patient post discharge, spoke to patient. Patient identified by name and . Do you feel your health is BETTER, WORSE, or the SAME since leaving the hospital? Better ACTION TAKEN: Patient indicated symptoms are better or same, no action required. Continue outreach. MEDICATIONS: Many patients have questions or concerns about their medications once they are home. Do you have any questions about taking your medications or which medication you should be on? No Do you need any medication refills at this time, including any of the medications you might take only when needed? No ACTION TAKEN: No action required For RNs or Pharmacy completing outreach ONLY, was a medication review completed? Yes SOCIAL: We would like to make sure you have what you need so that your basics needs are met - including your personal safety, food, housing and medications. Would you like to speak with a social work executive team leader to help give you support for any of these needs? No It can be normal to feel anxious or down during a time like this. Would you like to talk to a mental health professional about how you have been feeling? No ACTION TAKEN: No action taken DISCHARGE INTRUCTIONS: Your discharge instructions / After Visit Summary (AVS) are important in guiding you through the recovery process. Do you have any questions related to your discharge instructions? No Do you have all the necessary equipment and supplies at home? Yes ACTION TAKEN: No action required I would like to help you schedule a hospital follow-up virtual or telephone visit with your PCP. This is a great way for you to connect with your provider to ensure you have safely transitioned home. If you are agreeable, I will send your request to a senior producer who will contact and assist you with that appointment. This will give you an opportunity to ask any questions or address any concerns you may have with your PCP. Inform the patient that if they have any questions or concerns prior to that appointment, to call their PCP's office right away. ACTION TAKEN: No action required, patient declines appointment. Your doctor would like us to remind you of the recommendations regarding the coronavirus (Covid19) outbreak: Avoid public places as much as possible. Avoid close contact (within 6 feet) with others you don t live with, especially if they are sick. Stay home if you are sick. Wash your hands regularly for at least 20 seconds with soap and water. Wear a cloth mask in public places to help reduce community spread. Do not go to your Doctor s office unless instructed to do so. For any non-emergency symptoms, call your Doctor s office to get instructions on how to manage (we might recommend a telephone or virtual visit). For emergency symptoms, proceed to Emergency Department as usual but inform them of cough and fever symptoms JORGE if present (or call on the way if possible). JATIN Education Ordered -: No Denille Toccaceli, RN TCM Home Visit Referral Source of Stratification: [facility] Admission Status: Discharged Readmission Risk Score: 10 JULIANNE Score: 0 Patient meets program referral criteria: No Patient does not qualify for High Risk TCM Home Visit program due to: Discharged home, does not meet program criteria Juliocesar Sanabria RN January 02, 2023 11:03 AM TRANSITIONAL CARE MANAGEMENT (TCM) COMMUNITY MONITORING PROGRAM Provider Action/FYI: Outreach attempt #1 Unable to reach patient. Left message. Will try again later Next PCP appt scheduled 05/21/23 Appointments for Next 60 Days Date Time Provider Location Dept Phone 01/02/2023 2:00 PM GENTRY BROWNE [facility] Stro [phone] 01/08/2023 10:00 AM THU JOYNER Gen [phone] 01/21/2023 9:20 AM MRI RADIO [facility] (I-STAT/1.5T) [place] Lemuel [phone] 01/23/2023 10:30 AM YULISSA CABRERA Gen [phone] 01/30/2023 9:00 AM DIAGNOSTIC MAMMO [facility] [place] Hdez [phone] SUMMARY: Pt discharged from [facility] on 01/01/23. Admitted for: Paraesophageal hernia Patient presented to the hospital for elective surgery on 12/31/2022. Patient had a robotic sleeve gastrectomy. Postoperatively, patient tolerated their diet without nausea or vomiting. Patient's pain has been controlled and has been able to ambulate around the nursing floor. At this point patient is deemed stable to be discharged to home with follow-up with Dr. Cabrera in two weeks. Contact made with patient: No - next outreach attempt will be on next day Outreach ended Juliocesar Sanabria RN documented in this encounter [facility] 01-02-2023 Instructions Radha Jackson RN - 01/02/2023 2:59 PM EDT Pre op checklist and instructions: Adults Surgery date: 03/15/2023 The following is a list of things needed in order to have surgery. If you have any questions about any of the items not being completed prior to the day of surgery, please call our office at [phone]. You will need: - An informed consent- signed in the office by you and surgeon - A history and physical within 30 days of the surgery date (done by PACC, the pre-anesthesia team at [facility]) - Any additional consults as determined by your surgeon based on your health (please call the Appointment Center open 13/05 at [phone] or get in contact with our schedulers at [phone] to schedule the appointments. If you need to book radiology investigations (CT scan, MRI, ultrasound, etc...) please call [phone]. All the orders will be already in. - Labs (you can go directly to the 1st floor) - CXR (you can go directly to the 2nd floor) - EKG (book this at the desk and then go to the 1st floor) - Please register with [employer] at the [employer], this will be very helpful before and after the surgery for communications. The surgery will take place at: - MAIN CAMPUS: [facility] ([address] [address]) Check in desk is located at J1[address]9. Most convenient parking garage is P1 ([facility]) located at [address] [address]. Shiftman will also be available for purchase at the [facility] entrance. The day before surgery our senior producer will call you with the information regarding the time of your surgery. If you have not received a call from us by 3 pm the day before your scheduled surgery, please call [phone] and let them know you have not gotten your time for surgery. Please refer to our website for further information ([email or web address]). DO NOT EAT OR DRINK ANYTHING AFTER MIDNIGHT THE NIGHT BEFORE YOUR SCHEDULED SURGERY! This includes water, hard candy, and gum. Let your surgeon know if you are on any blood thinners (Ex: aspirin, Coumadin, Plavix, Pradaxa, Apixiban, Xarelto) at least 2 weeks before your surgery. The physician that ordered these medications should confirm that you can stop them and clear you for the surgery. Failure to do so can lead to a cancelled surgery and/or complications during and after surgery Please leave all valuables at home the day of surgery. DO NOT wear any jewelry, makeup, body piercings, nail indian, or hairpins Call the office with any questions about what medications are safe to take before surgery. Do not smoke for 6-8 (ideally 12) weeks prior to surgery. Do not use products containing nicotine such as the patch or gum. Smoking will increase your risk for post-operative complications such as infection If you are having outpatient surgery you WILL NOT be permitted to drive, take a cab, or bus home. If you do not have someone to drive you home, your surgery will be cancelled Do not plan anything for the day of surgery. Plan on being here all day long as there are unpredictable delays occurring every day. FAILURE TO FOLLOW THESE INSTRUCTIONS COULD LEAD TO CANCELLATION OF SCHEDULED SURGERY If you have any questions or are unsure of the above instructions, please do not hesitate to ask. We know how stressful the day of surgery can be without a list of things to follow! We look forward to seeing you documented in this encounter [facility] 01-02-2023 History of Present illness Narrative Plastic Surgery Note CC: discuss surgery HPI: Josseline is a 37 year old female who presents today for discuss surgery. She has been approve for breast reduction. ESTIMATED GRAMS OF TISSUE TO BE REMOVED: Left: ..180-450...gms Right: ..180-450...gms She needs to wait about 6 weeks after her laparoscopic surgery that she just had. Procedure(s): 1.- Laparoscopic repair of paraesophageal hernia - 22 modifier due to recurrent repair and extensive adhesions 2.- Laparoscopic Toupet fundoplication 3.- EGD 4.- Bilateral TAP blocks 5.- Placement of Bio-A mesh No results found for: HBA1C Last 10 Encounter BP Readings: Date: BP: 12/31/2022 121/57 12/28/2022 127/81 12/28/2022 116/81 12/20/2022 145/86 12/20/2022 108/84 11/22/2022 112/80 10/25/2022 122/86 10/24/2022 123/78 09/25/2022 118/80 07/18/2022 110/79 CBC Latest Ref Rng & Units 04/18/2022 06/28/2022 01/01/2023 WBC 3.70 - 11.00 k/uL 9.95 6.24 14.55(H) RBC 3.90 - 5.20 m/uL 4.40 5.08 4.33 HEMOGLOBIN 11.5 - 15.5 g/dL 12.4 13.7 12.5 HEMATOCRIT 36.0 - 46.0 % 38.6 44.0 37.6 MCV 80.0 - 100.0 fL 87.7 86.6 86.8 MCH 26.0 - 34.0 pg 28.2 27.0 28.9 MCHC 30.5 - 36.0 g/dL 32.1 31.1 33.2 RDW-CV 11.5 - 15.0 % 13.8 13.0 13.1 PLATELETS 150 - 400 k/uL 341 434(H) 261 MPV 9.0 - 12.7 fL 8.9(L) 9.4 9.7 BASO% % 0.3 0.6 0.1 ABS NEUT (ANC) 1.45 - 7.50 k/uL 6.41 3.96 13.50(H) ABS LYM 0.9 - 4.0 X10-3/UL - - - ABS LYMPH 1.00 - 4.00 k/uL 2.51 1.40 0.47(L) ABS MONO <0.87 k/uL 0.91(H) 0.66 0.46 ABS EOSIN <0.46 k/uL 0.09 0.15 <0.03 ABS BASO <0.11 k/uL 0.03 0.04 <0.03 NRBC /100 WBC - 0.0 0.0 CMP Latest Ref Rng & Units 04/18/2022 06/28/2022 01/01/2023 SODIUM 136 - 144 mmol/L 136 139 134(L) POTASSIUM 3.7 - 5.1 mmol/L 3.7 4.9 - CHLORIDE 97 - 105 mmol/L 104 101 102 CO2 22 - 30 mmol/L 27 25 20(L) GLUCOSE 74 - 99 mg/dL 81 60(L) 141(H) BUN 7 - 21 mg/dL 10 7 7 CREATININE 0.58 - 0.96 mg/dL 0.76 0.87 0.71 EGFR >=60 mL/min/1.73m 104 88 112 EGFR-ALL OTHER RACES . - - - EGFR- - - - - PROTEIN, TOTAL 6.3 - 8.0 g/dL 7.8 7.9 - ALBUMIN 3.9 - 4.9 g/dL 3.8 4.5 - CALCIUM, TOTAL 8.5 - 10.2 mg/dL 8.8 9.8 9.0 BILIRUBIN, TOTAL 0.2 - 1.3 mg/dL 0.2 0.2 - AST 13 - 35 U/L 18 24 - ALT 7 - 38 U/L 19 21 - ALKALINE PHOSPHATASE 34 - 123 U/L 99 137(H) - YES NO Smoking, vaping, nicotine, cannabis [] [x] Cigarettes/ day.... ? Diabetes [] [x] []Type 1? []Type 2 ?Last A1c:..... Systemic inflammatory diseases [] [x] []RA []Gout []Other... Hypertension [] [x] Meds:....... Heart disease or pacemaker [] [x] ............ Family history blood clots [] [x] Personal history blood clots [] [x] Anticoagulation (aspirin, coumadin, xarelto,etc) [] [x] What........... Reason:........... Immunosuppressants (steroid, biologic meds infusion, etc) [] [x] What........... Reason:........... Pt AGAINST blood transfusion? 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 Goodson 48 HOUR PH STUDY 12/20/2022 Dr. Deborah MAO 2012 EGD 06/02/2020 Dr. Goodson EGD numerous EGD 11/09/2019 Dr. Goodson EGD WITH BIOPSY(S) 04/14/2018 Grade A reflux esophagitis, bile gastritis, neg H Pylori EGD WITH BIOPSY(S) 12/07/2021 Dr. Durham EGD WITH BIOPSY(S) 12/20/2022 2 cm hiatal hernia; Dr. Cabrera ESOPHAGEAL DILATION (AG) x2 ESOPHAGEAL MANOMETRY 02/14/2022 Dr. Cabrera ESOPHAGEAL MANOMETRY 12/20/2022 Dr. Cabrera EXTRACTION ERUPTED TOOTH 2010 wisdom teeth F EGD WITH DILATATION 02/23/2020 Dr. Goodson F EGD WITH REMOVAL FOREIGN BODY 07/03/2022 removal of Linx device; Dr. Cabrera GASTRIC EMPTYING STUDY 09/28/2019 normal- [facility] HIATAL HERNIA REPAIR HX 12/24/2019 Dr. Goodson also did linx procedure at the same time KNEE SURGERY HX Right 06/2018 LAPAROSCOPIC CHOLECYSTECTOMY 12/04/2016 LAPS ESOPHGL SPHINCTER AUGMENT PROC PLACE DEVICE 12/24/2019 LINX placement; Dr. Goodson NOSE SURGERY HX excision of Squamous cell carcinoma under nose PAST SURGICAL HISTORY OF 05/2010 lipoma removed from back PAST SURGICAL HISTORY OF Left excision of basal cell carcinoma on cheek TONSILLECTOMY HX 09/01/2020 TOTAL ABDOM HYSTERECTOMY 05/01/2022 TUBAL LIGATION HX 12/11/2010 Current Outpatient Medications Medication Sig Dispense Refill cyanocobalamin, vitamin B-12, (VITAMIN B-12 ORAL) Take by mouth once daily. ascorbic acid (VITAMIN C ORAL) Take by mouth once daily. cholecalciferol, vitamin D3, (VITAMIN D3 ORAL) Take by mouth once daily. multivit with calcium,iron,min (WOMEN'S MULTIPLE VITAMINS ORAL) Take by mouth once daily. collagen/biotin/ascorbic acid (COLLAGEN 1500 PLUS C ORAL) Take by mouth once daily. traMADol (ULTRAM) 50 mg tablet Take 1 tablet by mouth every 6 hours as needed for pain. (Patient not taking: Reported on 01/02/2023) 25 tablet 0 ondansetron (ZOFRAN) 4 mg tablet Take 1 tablet by mouth every 8 hours as needed. [address] (PROTONIX) 40 mg tablet Take 1 tablet by mouth once daily. (Patient not taking: Reported on 01/02/2023) 90 tablet 0 No current facility-administered medications for this visit. ALLERGIES Allergen Reactions Morphine Itching, Shortness of Breath ROS: All negative except for: GENERAL: []weight loss []malaise []fevers HEENT: []frequent or significant headaches []changes in hearing []change in vision []nose bleeds []other nasal problems NECK: []lumps []goiter []pain and significant neck swelling RESPIRATORY: []cough []hemoptysis []wheezing []COPD []dyspnea []shortness of breath CARDIOVASCULAR: []chest pain []leg swelling []hypertension []CHF []palpitations GI: []nausea []vomiting []diarrhea MUSCULOSKELETAL: see HPI SKIN: [] skin lesions []rash []itching PSYCH: []sleep disturbance []mood disorder []recent psychosocial stressors HEMATOLOGY/LYMPHOLOGY: []prolonged bleeding []bruising easily []swollen nodes ENDOCRINE: []cold intolerance []heat intolerance []polyuria []polydipsia []goiter PE: Alert, awake in NAD LUNGS: Lungs clear to auscultation, Good diaphragmatic excursion CARDIAC: Normal S1 and S2; no rubs, murmurs, or gallops, Rhythm: regular rate and rhythm, Rate: normal A/P: This patient is a great candidate for bilateral breast reduction. She is to have a mammogram and then we should be all set to go ahead with the surgery. The mammogram is scheduled for 30 January Plan for surgery 03/15, marking 2 days before 03/13 IC signed Pre-op labs to be done about 1 month before surgery The patient is seen and examined by Dr. Browne and the following reflects his/her service. Scribed by Radha Jackson RN I agree with the Chief Complaint, ROS, and Past Histories independently gathered by the clinical pit crew support worker and the remaining scribed note accurately describes my personal service to the patient. I spent a total of 30 minutes on the date of the service which included preparing to see the patient, [id number] patient care, completing clinical documentation, obtaining and/or reviewing separately obtained history, performing a medically appropriate examination and counseling and educating the patient/family/caregiver. Gentry Browne MD PhD January 02, 2023 4:12 PM This note was generated with voice recognition software and may contain errors, including spelling, grammar, syntax and misrecognition of what was dictated, that are not fully corrected. documented in this encounter [facility] 12-28-2022 Miscellaneous Notes Medical clearance letter faxed to Dr. Tanner Bruner RN December 28, 2022 11:05 AM documented in this encounter [facility] 12-28-2022 History of Present illness Narrative Patient given surgical folder for Toupet surgery. Educated her on the pre and post op diet to follow. She reports no questions at this time. Naomy Bruner RN December 28, 2022 10:28 AM SURGICAL SERVICES HISTORY AND PHYSICAL EXAMINATION SERVICE DATE: 12/28/2022 SERVICE TIME: 9:23 AM PRIMARY CARE PHYSICIAN: Luis Hart MD SUBJECTIVE CHIEF COMPLAINT: reflux HISTORY OF PRESENT ILLNESS: Ms. Willard is a 37 year old female with a PMH of anxiety, GERD with reflux esophagitis status post hiatal hernia repair with LINX (Dr. Goodson 12/2019; now s/p removal), hx of basal cell carcinoma, and IBS who presents for follow up after recent additional testing. Today she reports that despite take once daily Protonix she continues to experience intermittent daily symptoms of heartburn and substernal burning. She states that when she had the Linx device in place she did not have reflux symptoms until the dilations were performed. She reports that the previous stacking sensations remain resolved. Former workup: - UGI (11/19/22): mid distal gastroesophageal reflux - EGD (12/20/22; Deborah): small 2 cm hiatal hernia - Pathology: Reactive gastropathy with very mild chronic inflammation. No morphologic evidence of Helicobacter pylori - Yo: DeMeester 35.7; SAPs 99, 97, and 100 - Manometry: Distal Esophageal spasm - EGD (Marva; 12/07/21): normal EGD - Pathology: Benign squamous mucosa with focal mild chronic inflammation - negative for EoE - CT Abd/pelvis (12/21/21): no acute abd/pelvic process. LINX device appears in proper placement on my assessment - MBS (11/21/21): WNL - EGD (06/02/20): report not available in Care Everywhere - UGI (02/22/20): mild narrowing of distal esophagus as traverses the Linx device. Delay in esophageal emptying. Remaining esophagus is WNL. No GERD. - Manometry: EGJOO secondary to LINX. IRP 19.4 mmHg, 40% fragmented swallows - Esophagram (01/31/22): Status post LINX procedure with mild delay in passage of oral contrast through this region and associated slight dilatation of the distal esophagus. No reflux identified Per my previous clinic notes: I saw her in clinic on 07/18/22 at which time she was feeling well and endorsed near complete resolution of the former sensation of stacking but she did continue with symptoms of reflux. She was started on Questran at that time for bile reflux. She tried taking the questran for two months and she did not see a major improvement in symptoms. At the 10/24/22 visit she reports the former stacking sensation had resolved, but was experiencing a sensation of food getting stuck at the top of her throat. She also experienced regurgitation and bringing food back up hours after eating. Heartburn worsened for her. Regarding the dysphagia, she had undergone extensive ENT and esophageal workup and workup had been negative. She has had stomach issues for many years, since 2008, for which she initially treated with extensive dietary changes and eventually underwent laparoscopic cholecystectomy without change in symptoms. She then began work up with Dr. Allan and Dr. Goodson and eventually underwent hiatal hernia repair with Linx device placement in 12/2019. Since surgery she continued with the same constant epigastric pain and nausea that she had prior to surgery. She endorsed food stacking and the sensation of food sitting in her throat/getting stuck and also reports regurgitation of undigested food - this occurs with nearly every meal. She denies emesis since the Linx (emesis was common for her prior to surgery). She also endorses esophageal pain and substernal burning which feels similar to the heartburn she experienced prior to surgery. Due to the aforementioned symptoms, since LINX placement she has undergone at least [address] Goodson. She states that she had no relief of symptoms with any of these dilations. Since undergoing LINX placement she has also undergone further extensive testing and eventually underwent tonsillectomy and allergy testing due to the issues with difficulty swallowing. She continues with no change in symptoms. 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 Goodson 48 HOUR PH STUDY 12/20/2022 Dr. Cabrera D AND C 2012 EGD 06/02/2020 Dr. Goodson EGD numerous EGD 11/09/2019 Dr. Goodson EGD WITH BIOPSY(S) 04/14/2018 Grade A reflux esophagitis, bile gastritis, neg H Pylori EGD WITH BIOPSY(S) 12/07/2021 Dr. Durham EGD WITH BIOPSY(S) 12/20/2022 2 cm hiatal hernia; Dr. Cabrera ESOPHAGEAL DILATION (AG) x2 ESOPHAGEAL MANOMETRY 02/14/2022 Dr. Cabrera ESOPHAGEAL MANOMETRY 12/20/2022 Dr. Cabrera EXTRACTION ERUPTED TOOTH 2010 wisdom teeth F EGD WITH DILATATION 02/23/2020 Dr. Goodson F EGD WITH REMOVAL FOREIGN BODY 07/03/2022 removal of Linx device; Dr. Cabrera GASTRIC EMPTYING STUDY 09/28/2019 normal- [facility] HIATAL HERNIA REPAIR HX 12/24/2019 Dr. Goodson also did linx procedure at the same time KNEE SURGERY HX Right 06/2018 LAPAROSCOPIC CHOLECYSTECTOMY 12/04/2016 LAPS ESOPHGL SPHINCTER AUGMENT PROC PLACE DEVICE 12/24/2019 LINX placement; Dr. Goodson NOSE SURGERY HX excision of Squamous cell carcinoma under nose PAST SURGICAL HISTORY OF 05/2010 lipoma removed from back PAST SURGICAL HISTORY OF Left excision of basal cell carcinoma on cheek TONSILLECTOMY HX 09/01/2020 TOTAL ABDOM HYSTERECTOMY 05/01/2022 TUBAL LIGATION HX 12/11/2010 FAMILY HISTORY: FAMILY HISTORY Problem Relation Age of Onset No Known Problems Mother Hypertension Father Hyperlipidemia Father Leukemia Paternal Grandfather Ovarian cancer Paternal Aunt 30 Colon Cancer No Family History SOCIAL HISTORY: Social History Tobacco Use Smoking status: Never Smokeless tobacco: Never Vaping Use Vaping Use: Never used Substance Use Topics Alcohol use: Yes Comment: Rarely Drug use: Never Comment: denies medical THC card MEDICATIONS: Current Outpatient Medications Medication Sig cyanocobalamin, vitamin B-12, (VITAMIN B-12 ORAL) Take by mouth once daily. ascorbic acid (VITAMIN C ORAL) Take by mouth once daily. cholecalciferol, vitamin D3, (VITAMIN D3 ORAL) Take by mouth once daily. multivit with calcium,iron,min (WOMEN'S MULTIPLE VITAMINS ORAL) Take by mouth once daily. collagen/biotin/ascorbic acid (COLLAGEN 1500 PLUS C ORAL) Take by mouth once daily. pantoprazole DR (PROTONIX) 40 mg tablet Take 1 tablet by mouth once daily. sucralfate (CARAFATE) 1 gram tablet four times daily. cholestyramine-sucrose (QUESTRAN) 4 gram powder Take 4 g by mouth three times daily with meals. (Patient not taking: No sig reported) polyethylene glycol 3350 (MIRALAX) 17 gram/dose powder Take 17 g by mouth once daily. Dissolve dose in 4 - 8 ounces of liquid and take as directed. (Patient not taking: No sig reported) No current facility-administered medications for this visit. ALLERGIES: ALLERGIES Allergen Reactions Morphine Itching, Shortness of Breath COMPLETE REVIEW OF SYSTEMS: Review of Systems Constitutional: Negative for chills, diaphoresis, fever and malaise/fatigue. HENT: Negative for congestion, hearing loss, nosebleeds, sinus pain, sore throat and tinnitus. Eyes: Negative for blurred vision, double vision, pain and redness. Respiratory: Negative for cough, hemoptysis, sputum production, shortness of breath and wheezing. Cardiovascular: Negative for chest pain, palpitations, orthopnea, leg swelling and PND. Gastrointestinal: Positive for heartburn. Negative for abdominal pain, blood in stool, constipation, diarrhea, nausea and vomiting. Genitourinary: Negative for dysuria, frequency, hematuria and urgency. Musculoskeletal: Negative for back pain, falls, joint pain, myalgias and neck pain. Skin: Negative for itching and rash. Neurological: Negative for dizziness, speech change, focal weakness, seizures, loss of consciousness, weakness and headaches. Endo/Heme/Allergies: Does not bruise/bleed easily. Psychiatric/Behavioral: Negative for depression, hallucinations, memory loss, substance abuse and suicidal ideas. The patient is nervous/anxious. The patient does not have insomnia. OBJECTIVE PHYSICAL EXAM: BP 116/81 Pulse 82 Ht 5' 5 (1.65m) Wt 180 lb 12.8 oz (82.0kg) LMP 05/01/2022 BMI 30.09 kg/(m^2). Physical Exam Vitals reviewed. Constitutional: Appearance: Normal appearance. She is obese. HENT: Head: Normocephalic and atraumatic. Eyes: General: No scleral icterus. Extraocular Movements: Extraocular movements intact. Conjunctiva/sclera: Conjunctivae normal. Pupils: Pupils are equal, round, and reactive to light. Cardiovascular: Rate and Rhythm: Normal rate. Pulmonary: Effort: Pulmonary effort is normal. No respiratory distress. Skin: General: Skin is warm and dry. Coloration: Skin is not jaundiced or pale. Neurological: General: No focal deficit present. Mental Status: She is alert and oriented to person, place, and time. Psychiatric: Mood and Affect: Mood normal. Behavior: Behavior normal. DATA: Diagnostic tests reviewed for today's visit: EMR reviewed - all new and previous testing reviewed in preparation for today's visit Plan ASSESSMENT AND PLAN Josseline Willard is a 37 year old female with a PMH as noted above who presents with medically refractory GERD. ASSESSMENT/PLAN: 1. Gastroesophageal reflux disease without esophagitis - ICD9: 530.81, ICD10: K21.9 (primary diagnosis) - Discussed lifestyle modifications including losing weight, limiting caffeine, no meals three hours before sleep, and head of bed elevation - Continue treatment with Protonix 40 mg, but increase to BID - Today in clinic the patient and I reviewed her diagnosis, her workup and treatment up to this point, and my recommended treatment going forward. We discussed surgical repair of her known small recurrent paraesophageal hernia which has been complicated by medically refractory GERD. She has undergone removal of LINX device with resolution of previous dysphagia, but this will still be a revision surgery and she will most likely have increased scar tissue and adhesions so therefore we will plan for a longer operative time. - We reviewed the surgical procedure - laparoscopic, possible open, paraesophageal hernia repair with partial posterior fundoplication, Biologic mesh placement, EGD, and bilateral TAP blocks - All of her questions and concerns were addressed. The informed consent was reviewed and the patient provided both written and verbal informed consent. We discussed the potential risks and complications associated with surgery, including but not limited to, infection, scarring, postoperative bleeding, injury to surrounding structures (stomach, esophagus, spleen, liver, lungs), deep vein thrombosis, pulmonary embolism, pneumonia, myocardial infarction. We also discussed long term care pharmacist risks of recurrence, dysphagia, and bloating. We specifically discussed that since this is a revision and she had a previous LINX placed, she is at increased risk of injury to unilateral or bilateral vagus nerve with resulting gastroparesis. - We discussed the chance of non-resolution of reflux symptoms due to her continue breakthrough symptoms of GERD despite use of daily Protonix.We will increase the dose of Protonix to BID - While we will perform appropriate precautions to minimize patient exposure and risk, by undergoing surgery during the Covid-19 pandemic, the patient understands and accepts the unpredictable nature of the Covid-19 virus and the possibility of risks specific to the Covid-19 virus including but not limited to pneumonia, respiratory failure, sepsis, blood clots in different organs, heart attack, stroke, multiple organ failure, and . The patient understands and accepts these risks prior to proceeding with surgery. - We discussed the importance of adhering to self-quarantine for 2 weeks following surgery - Send medical clearance to PCP - XR CHEST 2V FRONTAL/LAT - ECG COMPLETE - CBC + DIFF - BASIC METABOLIC PNL - CONSULT TO PRE-SURGICAL TESTING (AG) 2. Esophageal dysphagia - ICD9: 787.29, ICD10: R13.19 - Overall her previous stacking symptoms have fully resolved. However, she continues with proximal esophageal dysphagia. She had a full ENT workup, including a tonsillectomy, but she has continued symptoms of food intermittently getting stuck in her upper esophagus - at the level of her cervical spine/throat. We discussed that while these symptoms could be secondary to acid reflux, we cannot guaranteed that these symptoms will resolve after fundoplication. 3. Esophageal spasm - ICD9: 530.5, ICD10: K22.4 - We discussed that this manometry finding could be secondary to reflux, as GERD is known to cause esophageal dysfunction and spasm. Continue use of Protonix 40 mg, but increase to BID. Due to this finding, I am recommending a partial posterior wrap. 4. Class 1 obesity with serious comorbidity and body mass index (BMI) of 30.0 to 30.9 in adult, unspecified obesity type - ICD9: 278.00, V85.30, ICD10: E66.9, Z68.30 - She is working out and dieting and working to lose weight. Her BMI is 30.09, but she does not have a lot of central obesity. Medical Decision Making: Problems: Moderate: 2+ stable chronic illnesses Data: Unique test result(s) reviewed: 3+ Unique test(s) ordered: 3+ Discussed management or test w/ external physician/QHCP/source Risk: High: Decision on elective major surgery w/ risk factors Medical Decision Making Level: 5 - High SIGNATURE: Yulissa Cabrera MD PATIENT NAME: Josseline Willard DATE: December 28, 2022 TIME: 9:23 AM PAGER/CONTACT #: [phone] documented in this encounter [facility] 12-20-2022 Surgical operation note OPERATIVE/PROCEDURE REPORT LOG ID: [id number] Surgery/Procedure Date: Incision/Procedure Start Time: 2:12 PM Incision Close/Procedure End Time: 2:20 PM Surgeon(s)/Proceduralist(s) and Brake Drum Molder(s): * No surgeons found in log * No Additional Staff PREOPERATIVE DIAGNOSIS: 1. Gastroesophageal reflux disease. 2. Esophageal dysphagia POSTOPERATIVE DIAGNOSIS: 1. Gastroesophageal reflux disease. 2. Esophageal dysphagia 3. Small sliding hiatal hernia - 2 cm COMPLICATIONS: None. Procedure(s): 1. Esophageal manometry study 2. Esophagogastroduodenoscopy (EGD) with cold forceps biopsies of the gastric antrum 3. Successful Yo pH probe insertion Anesthesia: * No anesthesia type entered * MAC by Anesthesiology without complications Operative Findings: Diagnostic EGD demonstrated a very small sliding hiatal hernia Operative Indication: Josseline Willard is a 37 year old female who presents for manometry study, EGD, and Yo pH probe placement. We discussed the risks, benefits, alternatives, and potential complications, and the patient agreed to proceed. Procedure Details: Endoscopic procedure: The patient was brought to the endoscopic suite in stable condition. The preprocedural checklist was completed to the satisfaction of the entire team and verified with the patient. We had previously completed the consent process after discussing the risks and benefits of the procedure, which included, but were not limited to, the risk of hemorrhage, need for blood transfusion, and the possibility of perforation. The patient had also previously had her esophageal manometry study earlier today. Once she was induced by Anesthesia and appropriately sedated, the Olympus gastroscope was entered through the mouth. I was easily able to intubate the esophagus. The esophageal portion of the examination was positive for a slightly tortuous esophagus but, otherwise, was within normal limits. The Z-line was measured at 37 centimeters from the bite protector and the diaphragmatic hiatus was measured at 39 cm. I then entered the stomach. The patient had some gastric secretions, which were suctioned out using the gastroscope. I did retroflex the scope, which showed a normal appearing GE junction and fundus from that angle. Retroflex view showed a Hill grade 2 GE junction. I then intubated the pylorus into the duodenal bulb, examining both the anterior and posterior portions of the duodenal bulb and then into the second portion of the duodenum. That part of the procedure was within normal limits. Once back in the stomach, I then performed 4 separate cold forceps biopsies in the gastric antrum to be sent for H.pylori. This was done with minimal bleeding. I ensured we had good hemostasis. Gastric insufflation was removed using suction. The gastroscope was removed through the mouth. I then had my technical services assistant bola a Yo pH capsule insertion catheter 6 centimeters above 37, which placed us at 31centimeters from the bite protector. Lubricant was placed on the probe device, avoiding placing lubrication on the actual implantable Yo pH probe. The probe was inserted with the probe side facing the tongue. There was no resistance. To verify placement into the esophagus, esophageal placement was verified. Once we had the desired marking, suction was then turned on. Once we had our appropriate pressure, we then waited full 30 seconds with the patient being still. I then engaged the insertion catheter. The probe catheter insertion device was then removed with no resistance. I then endoscopically confirmed esophageal placement. This was confirmed with a picture. Insufflation was then removed and the gastroscope removed through the mouth. The patient tolerated the procedure very well and was returned to recovery room in stable condition. Recommendations: follow up in clinic Estimated Blood Loss: minimal Specimens: 1. Gastric antrum Implantable Devices: Yo pH probe Drains: None Complications: None I performed the procedure independently. SIGNATURE: Yulissa Cabrera MD PATIENT NAME: Josseline Willard DATE: December 20, 2022 TIME: 2:26 PM PAGER/CONTACT #: documented in this encounter [facility] 12-20-2022 History and physical note HISTORY AND PHYSICAL EXAMINATION Patient: Josseline Willard : 1985 SERVICE DATE: 12/20/2022 SERVICE TIME: 8:08 AM PRIMARY CARE PHYSICIAN: Luis Hart MD SURGEON: Dr. Cabrera ANESTHESIA: mac DIAGNOSIS: Gastroesophageal reflux disease, unspecified whether esophagitis present [K21.9] PROCEDURE: EGD Subjective CHIEF COMPLAINT: EGD HPI: This is a 37-year-old female who presents for EGD. Hx of GERD with reflux esophagitis status post hiatal hernia repair. Last EGD 11/2021. Reports GERD and nausea sx persist. Taking pantoprazole without relief. Also has intermittent epigastric pain . Pain today 0/10. METS: Climb a flight of stairs or walk up a hill (5.50 METs) Patient denies any chest pain or shortness of breath with above physical activity. 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 Hamzah MAO 2012 EGD 06/02/2020 Dr. Goodson EGD numerous EGD 11/09/2019 Dr. Goodson EGD WITH BIOPSY(S) 04/14/2018 Grade A reflux esophagitis, bile gastritis, neg H Pylori EGD WITH BIOPSY(S) 12/07/2021 Dr. Durham ESOPHAGEAL DILATION (AG) x2 ESOPHAGEAL MANOMETRY 02/14/2022 Dr. Cabrera EXTRACTION ERUPTED TOOTH 2010 wisdom teeth F EGD WITH DILATATION 02/23/2020 Dr. Goodson F EGD WITH REMOVAL FOREIGN BODY 07/03/2022 removal of Linx device; Dr. Cabrera GASTRIC EMPTYING STUDY 09/28/2019 normal- [facility] HIATAL HERNIA REPAIR HX 12/24/2019 Dr. Goodson also did linx procedure at the same time KNEE SURGERY HX Right 06/2018 LAPAROSCOPIC CHOLECYSTECTOMY 12/04/2016 LAPS ESOPHGL SPHINCTER AUGMENT PROC PLACE DEVICE 12/24/2019 LINX placement; Dr. Goodson NOSE SURGERY HX excision of Squamous cell carcinoma under nose PAST SURGICAL HISTORY OF 05/2010 lipoma removed from back PAST SURGICAL HISTORY OF Left excision of basal cell carcinoma on cheek TONSILLECTOMY HX 09/01/2020 TOTAL ABDOM HYSTERECTOMY 05/01/2022 TUBAL LIGATION HX 12/11/2010 FAMILY HISTORY Problem Relation Age of Onset No Known Problems Mother Hypertension Father Hyperlipidemia Father Leukemia Paternal Grandfather Ovarian cancer Paternal Aunt 30 Colon Cancer No Family History Social History Tobacco Use Smoking status: Never Smokeless tobacco: Never Vaping Use Vaping Use: Never used Substance Use Topics Alcohol use: Yes Comment: Rarely Drug use: Never Comment: denies medical THC card Prior to Admission medications as of 12/20/22 1214 Medication Sig Last Dose Taking multivit with calcium,iron,min (WOMEN'S MULTIPLE VITAMINS ORAL) Take by mouth once daily. collagen/biotin/ascorbic acid (COLLAGEN 1500 PLUS C ORAL) Take by mouth once daily. pantoprazole DR (PROTONIX) 40 mg tablet Take 1 tablet by mouth once daily. cholestyramine-sucrose (QUESTRAN) 4 gram powder Take 4 g by mouth three times daily with meals. Patient not taking: Reported on 10/24/2022 sucralfate (CARAFATE) 1 gram tablet four times daily. polyethylene glycol 3350 (MIRALAX) 17 gram/dose powder Take 17 g by mouth once daily. Dissolve dose in 4 - 8 ounces of liquid and take as directed. Patient not taking: No sig reported ALLERGIES Allergen Reactions Morphine Itching, Shortness of Breath COMPLETE REVIEW OF SYSTEMS: GENERAL: No weight loss, malaise or fevers RESPIRATORY: Denies ANKUSH, coughing, wheezing or SOB CARDIOVASCULAR: Denies chest pain, palpitations, or CHF GI: Denies abdominal pain, nausea or vomiting : Denies urinary complaints ICE GUARD SKATING RINK: S/P hysterectomy MUSCULOSKELETAL: Denies joint pain, muscle pain, or back pain PSYCH: Anxiety. Denies depression, sleep disturbance, or mood disorder ENDOCRINE: Denies DM or thyroid problems NEURO: Denies headaches, syncope, seizures, or tremors HEME/ONC: Denies cancer or bleeding/clotting disorders Objective PHYSICAL EXAM: CONSTITUTIONAL: Well-developed, NAD MENTAL STATUS: alert, oriented to person, place and time SKIN: Warm, dry, no diaphoresis HEENT: Normocephalic, atraumatic, no lymphadenopathy LUNGS: Lungs clear to auscultation, Good diaphragmatic excursion CARDIAC: RRR no murmur ABDOMEN: Abdomen soft, non-tender, BS x 4 EXTREMITIES: Extremities normal, no deformities, edema, clubbing or skin discoloration. LMP 05/01/2022 VS: See RN flow sheet ANESTHESIA FINDINGS: Intubation History: No history of difficult intubation. Significant anesthesia considerations: PONV FAMILY PROBLEMS WITH ANESTHESIA: No history of adverse anesthetic event Assessment/Plan There is no known pertinent medical condition which may affect john-operative course SIGNATURE: Kary Sandy APRN.CNP PATIENT NAME: Josseline Willard DATE: December 20, 2022 TIME: 8:08 AM PAGER/CONTACT #: documented in this encounter [facility] 12-20-2022 Nurse Note The Patient was taken into the procedure room. Informed consent was verified and all allergy's reviewed prior to the procedure. The manometry catheter was inserted into the right nares with out difficulty. This patient denies any nasal injuries or surgeries. This patient denied taking any use of blood thinners or muscle relaxants. This patient was informed that they may notice some nasal congestion and minimal nasal bleeding. This patient tolerated this procedure well. documented in this encounter [facility] 12-10-2022 History of Present illness Narrative Gildardo Hayes MD Department of Orthopaedics Orthopaedics [address] [id number] Dept: [phone] Dept December 10, 2022 CHIEF COMPLAINT: Pain and New of the Right Hip and Referred by Taylor Willard HPI Patient here for evaluation of right hip pain. Patient states she has bilateral hip dysplasia. Her right hip is worse than her left. States the pain started in July. He has done physical therapy at [facility] and made the pain worse. Her pain started at the crest of her hip and radiates into her buttock and groin. She has a tearing sensation in the groin area and aching pain that radiates down her leg to her toes. Taking Motrin and Tylenol as needed for the pain. She has stomach issues and limits her what she can take. She is unemployed currently. Son with patient today. X-rays done on 09/25/22. ASSESSMENT: M25.551 Right hip pain PLAN: Based on the location and failure of conservative treatments such as anti-inflammatories, Tylenol and physical therapy, I would elect for an MRI to evaluate. Does not seem to be in a radicular pattern despite her reporting some discomfort in the thigh at times. The majority of her symptoms is much more localized superior to the hip and hip joint. She previously had a hysterectomy, hoping that would help with some of the right hip/abdominal pain, yet it persisted. FOLLOW UP INSTRUCTIONS: We will discuss after imaging studies completed Ms. Josseline Willard was advised as to contrast therapies and/or to take analgesics/anti-inflammatories as needed and all contraindications were reviewed. OBJECTIVE: Ms. Josseline Willard is a pleasant 37 year old in no apparent distress. Gen:Ht 5' 5 (1.65m) Wt 178 lb 12.8 oz (81.1kg) LMP 05/01/2022 BMI 29.75 kg/(m^2). nl development, non obese, no deformities ENT: Normocephalic, normal hearing, moist mucosa CV: Pulses:DP/PT= 2+ and symmetric, capillary refill < 2 secs, no peripheral edema/varicosities Skin: no rash, bruising or lesions. Good turgor. Psych: cooperative and appropriate, alert and oriented x 3, good mood and affect. Musculoskeletal: Patient walks without antalgia. Lateral bends have normal motion yet when she stretches to the left she has a pulling sensation on the right lateral hip, superior to the proximal femur. She has tenderness over the iliac crest anterior and laterally and tenderness through the soft tissues surrounding. Mild discomfort around more posteriorly toward the SI joint but not specific pain at the SI joint. She has good range of motion of the hip joint without any pain on flexion and internal rotation. IMAGING: IMPRESSION: Mild hip dysplasia otherwise well-maintained. Transport Operations Inspector[facility] Transcribe Date/Time: Sep 25 2022 8:31P Dictated by : TRE DUARTE MD This examination was interpreted and the report reviewed and electronically signed by: TRE DUARTE MD on Sep 25 2022 8:33PM EST Results-Findings * * *Final Report* * * DATE OF EXAM: Sep 25 2022 9:48AM WOX [id number] - XR HIP 3V PELV+ AP/LAT RT / PROCEDURE REASON: Right hip pain * * * * Physician Interpretation * * * * HISTORY: right hip pain since July, no known injury. Pt had hysterectomy during the summer.. Right hip pain . TECHNIQUE: XR HIP 3V PELV+ AP/LAT RT Laterality: RIGHT Number of different views (projections): 3 COMPARISON: None RESULT: There is mild uncovering of the lateral aspect of the femoral head also seen on the left side. There is no joint space narrowing. There is no fracture. Bony pelvis intact. SI joints appear normal. Mild degenerative changes of the pubis symphysis. 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 Goodson D FARA Payne 2012 EGD 06/02/2020 Dr. Goodson EGD numerous EGD 11/09/2019 Dr. Goodson EGD WITH BIOPSY(S) 04/14/2018 Grade A reflux esophagitis, bile gastritis, neg H Pylori EGD WITH BIOPSY(S) 12/07/2021 Dr. Durham ESOPHAGEAL DILATION (AG) x2 ESOPHAGEAL MANOMETRY 02/14/2022 Dr. Cabrera EXTRACTION ERUPTED TOOTH 2010 wisdom teeth F EGD WITH DILATATION 02/23/2020 Dr. Goodson F EGD WITH REMOVAL FOREIGN BODY 07/03/2022 removal of Linx device; Dr. Cabrera GASTRIC EMPTYING STUDY 09/28/2019 normal- [facility] HIATAL HERNIA REPAIR HX 12/24/2019 Dr. Goodson also did linx procedure at the same time KNEE SURGERY HX Right 06/2018 LAPAROSCOPIC CHOLECYSTECTOMY 12/04/2016 LAPS ESOPHGL SPHINCTER AUGMENT PROC PLACE DEVICE 12/24/2019 LINX placement; Dr. Goodson NOSE SURGERY HX excision of Squamous cell carcinoma under nose PAST SURGICAL HISTORY OF 05/2010 lipoma removed from back PAST SURGICAL HISTORY OF Left excision of basal cell carcinoma on cheek TONSILLECTOMY HX 09/01/2020 TOTAL ABDOM HYSTERECTOMY 05/01/2022 TUBAL LIGATION HX 12/11/2010 Family History: FAMILY HISTORY Problem Relation Age of Onset No Known Problems Mother Hypertension Father Hyperlipidemia Father Leukemia Paternal Grandfather Ovarian cancer Paternal Aunt 30 Colon Cancer No Family History Social History: Social History Tobacco Use Smoking status: Never Smokeless tobacco: Never Vaping Use Vaping Use: Never used Substance Use Topics Alcohol use: Yes Comment: Rarely Drug use: Never Comment: denies medical THC card Medications: Current Outpatient Medications Medication Sig pantoprazole DR (PROTONIX) 40 mg tablet Take 1 tablet by mouth once daily. sucralfate (CARAFATE) 1 gram tablet four times daily. multivit with calcium,iron,min (WOMEN'S MULTIPLE VITAMINS ORAL) Take by mouth once daily. collagen/biotin/ascorbic acid (COLLAGEN 1500 PLUS C ORAL) Take by mouth once daily. cholestyramine-sucrose (QUESTRAN) 4 gram powder Take 4 g by mouth three times daily with meals. (Patient not taking: Reported on 10/24/2022) polyethylene glycol 3350 (MIRALAX) 17 gram/dose powder Take 17 g by mouth once daily. Dissolve dose in 4 - 8 ounces of liquid and take as directed. (Patient not taking: No sig reported) No current facility-administered medications for this visit. Allergies: Morphine ROS: General (negative for fatigue, malaise, weight loss/gain) HEENT (negative for headache, earache, recent vision changes, sinus pain, sore throat) Respiratory (no recent shortness of breath, hemoptysis) CV (negative for chest tightness, palpitations) Musculoskeletal (see HPI) Psych (no depression, anxiety) REFERRING PHYSICIAN: Consultation requested by Taylor Willard for an opinion regarding Right hip pain. My final recommendations will be communicated back to the requesting physician by way of shared Medical record or letter to requesting physician via US mail. Taylor Willard [address] [facility] [id number] Luis Hart MD [address] [facility] [id number] Gildardo Hayes MD documented in this encounter [facility] 11-27-2022 History of Present illness Narrative DATE OF PHOTOS: 11/27/2022 Body Part: Breasts Emma Luis LPN November 27, 2022 10:33 AM documented in this encounter [facility] 11-27-2022 History of Present illness Narrative Images from the original note were not included. BREAST REDUCTION EVALUATION CC: Josseline Willard is a 37 year old that presents today for breast reduction evaluation. HPI: Pt c/o [x]Macromastia []Breast Asymmetry []Nipple Asymmetry []Constricted Breast []Unusual Breast Shape []Small Breast Size []Lack of Cleavage []Intertrigo [x]Shoulder Pain []Shoulder Grooves [x]Neck Pain [x]Upper back pain []Lower back pain. Physical therapy for back pain: number of months:.n/a... Chiropractic treatment: months or visits:..since August 2022.... Home exercise: months tried:.stretching, foam roller, home exercises given by the chiropractor..... NSAID use: Type:...tylenol and ibuprofen occasionally ......; Months tried:........ Skin ulceration: yes [x] no []Worse during the summer Topical or oral antifungal agents: Type:.........; Months tried:........... Participation in medically supervised weight loss program: yes [] no [x] PAIN: []No [x]Yes Location:...upper back, shoulders, neck...... Now 0[] 1[] 2[] 3[] 4[] 5[] 6[] 7[] 8[] 9[] 10[] Average 0[] 1[] 2[] 3[] 4[] 5[] 6[] 7[] 8[] 9[] 10[] Rest 0[] 1[] 2[] 3[] 4[] 5[] 6[] 7[] 8[] 9[] 10[] Function 0[] 1[] 2[] 3[] 4[] 5[] 6[] 7[] 8[] 9[] 10[] CHARACTER: [x]aching []boring []burning []crushing []dull []excruciating []mild []moderate []numbness []penetrating []pressure []pulsating []radiating []severe []sharp []soreness []shooting []stabbing []stiff []tenderness [x]throbbing []tight band []tingling []cramping DURATION: ....5-10....... []weeks []months [x]years; FREQUENCY: []occurs intermittently []occurs seldom []occurs constantly [x]occurs daily []occurs weekly []occurs monthly []occurs hourly []occurs every 30 minutes []occurs every 15 minutes. BRA SIZE: []32 []34 []36 []38 []40 []42 []44 []46 []48 []50 []A []B []C []D []DD/E []DDD/F []DDDD/G []H []I []J []K Patient unsure, she wears sports bras or goes braless DESIRED CUP SIZE: []A []B []C []D []DD/E []DDD/F []DDDD/G []H []I []J []K Would like symptoms to be better PRIOR TREATMENT/OTHER PROVIDER: ....no....... WEIGHT REDUCTION ATTEMPTED: []Yes, ........lbs lost, with change in breast symptoms []Yes,........ lbs lost with no change in breast symptoms [x]Not previous attempt at weight loss, patient will be seeing a weigh specialist soon EXERCISE: []Yes, patient exercize and reports changes in breast symptoms [x]Yes, patient exercize and reports no changes in breast symptoms []No, patient does not exercise RECENT CHANGES REPORTED: [x]Patient reports no recent changes in breast symptoms []Patient reports the following changes in breast symptoms......... OB HISTORY: PARA: 0[] 1[] 2[] 3[x] 4[] 5[] 6[] 7[] 8[] 9[] 10[] : yes [] no [x] Last ......15 years......... months ago. PLAN FOR FUTURE PREGNANCIES: yes [] no [x] PERSONAL HISTORY OF BREAST DISEASE: [x]No patient history of previous breast disease []Positive patient history of breast disease: []Biopsy done, results:........ []Biopsies done, results:....... []Biopsies not done Any palpable mass? [x]No []Yes Any Nipple discharge? [x]No []Yes when......... colour.......... Prior breast surgeries: [x]No []Yes date......... Result......... []Right []Left []Partial []Simple []Modified Radical []Nipple sparing []Other skin sparing []Unsure PRIOR MAMMOGRAM: yes [x] no [] date:..02/04/2022........, results:.. IMPRESSION: NO SPECIFIC MAMMOGRAPHIC EVIDENCE OF MALIGNANCY. No significant abnormality is noted in the in the retroareolar areas of both breasts and in the upper outer areas of the both breasts on ultrasound examination. Further evaluation with galactogram is recommended if there is persistent bloody nipple discharge. ....... 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 Goodson D FARA Payne 2011 EGD 06/02/2020 Dr. Goodson EGD numerous EGD 11/09/2019 Dr. Goodson EGD WITH BIOPSY(S) 04/14/2018 Grade A reflux esophagitis, bile gastritis, neg H Pylori EGD WITH BIOPSY(S) 12/07/2021 Dr. Durham ESOPHAGEAL DILATION (AG) x2 ESOPHAGEAL MANOMETRY 02/14/2022 Dr. Cabrera EXTRACTION ERUPTED TOOTH 2010 wisdom teeth F EGD WITH DILATATION 02/23/2020 Dr. Goodson F EGD WITH REMOVAL FOREIGN BODY 07/03/2022 removal of Linx device; Dr. Cabrera GASTRIC EMPTYING STUDY 09/28/2019 normal- [facility] HIATAL HERNIA REPAIR HX 12/24/2019 Dr. Goodson also did linx procedure at the same time KNEE SURGERY HX Right 06/2018 LAPAROSCOPIC CHOLECYSTECTOMY 12/04/2016 LAPS ESOPHGL SPHINCTER AUGMENT PROC PLACE DEVICE 12/24/2019 LINX placement; Dr. Goodsno NOSE SURGERY HX excision of Squamous cell carcinoma under nose PAST SURGICAL HISTORY OF 05/2010 lipoma removed from back PAST SURGICAL HISTORY OF Left excision of basal cell carcinoma on cheek TONSILLECTOMY HX 09/01/2020 TOTAL ABDOM HYSTERECTOMY 05/01/2022 TUBAL LIGATION HX 12/11/2010 Meds: Current Outpatient Medications on File Prior to Visit Medication Sig pantoprazole DR (PROTONIX) 40 mg tablet Take 1 tablet by mouth once daily. cholestyramine-sucrose (QUESTRAN) 4 gram powder Take 4 g by mouth three times daily with meals. (Patient not taking: Reported on 10/24/2022) sucralfate (CARAFATE) 1 gram tablet four times daily. (Patient not taking: No sig reported) polyethylene glycol 3350 (MIRALAX) 17 gram/dose powder Take 17 g by mouth once daily. Dissolve dose in 4 - 8 ounces of liquid and take as directed. (Patient not taking: No sig reported) melatonin 3 mg capsules Take by mouth daily at bedtime. (Patient not taking: No sig reported) No current facility-administered medications on file prior to visit. Allergies: ALLERGIES Allergen Reactions Morphine Itching, Shortness of Breath No results found for: HBA1C Last 10 Encounter BP Readings: Date: BP: 10/24/2022 123/78 09/25/2022 118/80 07/18/2022 110/79 07/03/2022 139/90 06/28/2022 90/70 06/26/2022 123/84 05/16/2022 99/68 04/18/2022 128/81 04/16/2022 112/75 04/12/2022 115/76 CBC Latest Ref Rng & Units 07/20/2019 04/18/2022 06/28/2022 WBC 3.70 - 11.00 k/uL 6.04 9.95 6.24 RBC 3.90 - 5.20 m/uL 4.49 4.40 5.08 HEMOGLOBIN 11.5 - 15.5 g/dL 12.5 12.4 13.7 HEMATOCRIT 36.0 - 46.0 % 39.5 38.6 44.0 MCV 80.0 - 100.0 fL 88.0 87.7 86.6 MCH 26.0 - 34.0 pg 27.8 28.2 27.0 MCHC 30.5 - 36.0 g/dL 31.6 32.1 31.1 RDW-CV 11.5 - 15.0 % 13.0 13.8 13.0 PLATELETS 150 - 400 k/uL 339 341 434(H) MPV 9.0 - 12.7 fL 10.0 8.9(L) 9.4 BASO% % - 0.3 0.6 ABS NEUT (ANC) 1.45 - 7.50 k/uL - 6.41 3.96 ABS LYM 0.9 - 4.0 X10-3/UL - - - ABS LYMPH 1.00 - 4.00 k/uL - 2.51 1.40 ABS MONO <0.87 k/uL - 0.91(H) 0.66 ABS EOSIN <0.46 k/uL - 0.09 0.15 ABS BASO <0.11 k/uL - 0.03 0.04 NRBC /100 WBC - - 0.0 CMP Latest Ref Rng & Units 07/20/2019 04/18/2022 06/28/2022 SODIUM 136 - 144 mmol/L 140 136 139 POTASSIUM 3.7 - 5.1 mmol/L 3.8 3.7 4.9 CHLORIDE 97 - 105 mmol/L 104 104 101 CO2 22 - 30 mmol/L 27 27 25 GLUCOSE 74 - 99 mg/dL 93 81 60(L) BUN 7 - 21 mg/dL 9 10 7 CREATININE 0.58 - 0.96 mg/dL 0.84 0.76 0.87 EGFR >=60 mL/min/1.73m - 104 88 EGFR-ALL OTHER RACES . >60 - - EGFR- - >60 - - PROTEIN, TOTAL 6.3 - 8.0 g/dL 7.2 7.8 7.9 ALBUMIN 3.9 - 4.9 g/dL 4.2 3.8 4.5 CALCIUM, TOTAL 8.5 - 10.2 mg/dL 9.5 8.8 9.8 BILIRUBIN, TOTAL 0.2 - 1.3 mg/dL 0.4 0.2 0.2 AST 13 - 35 U/L 16 18 24 ALT 7 - 38 U/L 13 19 21 ALKALINE PHOSPHATASE 34 - 123 U/L 122 99 137(H) YES NO Smoking, vaping, nicotine, cannabis [] [x] Cigarettes/ day.... ? Diabetes [] [x] []Type 1? []Type 2 ?Last A1c:..... Systemic inflammatory diseases [] [x] []RA []Gout []Other... Hypertension [] [x] Meds:....... Heart disease or pacemaker [] [x] ............ Family history blood clots [] [x] Personal history blood clots [] [x] Anticoagulation (aspirin, coumadin, xarelto,etc) [] [x] What........... Reason:........... Immunosuppressants (steroid, biologic meds infusion, etc) [] [x] What........... Reason:........... Pt AGAINST blood transfusion? [] [x] ROS All negative except for: GENERAL: []weight loss []malaise []fevers HEENT: []frequent or significant headaches []changes in hearing []change in vision []nose bleeds []other nasal problems NECK: []lumps []goiter []pain and significant neck swelling RESPIRATORY: []cough []hemoptysis []wheezing []COPD []dyspnea []shortness of breath CARDIOVASCULAR: []chest pain []leg swelling []hypertension []CHF []palpitations GI: []nausea []vomiting []diarrhea MUSCULOSKELETAL: see HPI SKIN: [] skin lesions []rash []itching PSYCH: []sleep disturbance []mood disorder []recent psychosocial stressors HEMATOLOGY/LYMPHOLOGY: []prolonged bleeding []bruising easily []swollen nodes ENDOCRINE: []cold intolerance []heat intolerance []polyuria []polydipsia []goiter ETOH USE: []None []Occasional []History of Abuse .........Drinks/day,.........Drinks/we ek...........Drinks/month USE OF VITAMIN E, HERBS, ASA, NSAIDS: yes [] no [] MARITAL STATUS: [x]/engaged []Single []Co-habitating []Partnering [] [] [] []Remarried []Committed relationship EMPLOYMENT: [x]Patient is not currently employed []Patient is employed as........ []Patient is retired []Patient is on disability EXAM: [facility] 05/01/2022 Estimated body surface area is 1.93 meters squared as calculated from the following: Height as of 10/24/22: 164.5 cm (5' 4.75). Weight as of 11/22/22: 81.2 kg (179 lb). There is no height or weight on file to calculate BMI. Back Exam: Scar: yes [] no [] latissimus dorsi muscle function appears to be []intact []diminished []absent Abdominal Exam: Scar: []No []Yes........... Abdominoplasty []No []Yes []Normal abdominal exam, soft, non-tender. Bowel sounds normal. No masses, organomegaly []positive findings: []umbilical hernia []incisional hernia []diastasis recti []obese []distended []shifting dullness []tenderness []mass, located........, []hepatomegaly []splenomegaly []absent bowel sounds []hypoactive bowel sounds []hyperactive bowel sounds []ascites Breast Exam: Shoulder position: []level []right higher than left []left higher than right []mild []moderate []severe Chest: []Average []Wide []Flat []Narrow []Pectus excavatum []Pectus carinatum Asymmetry: []No []Yes []Minimal []Moderate []R>L []L>R Masses: []No []Yes........... Axillary Lymphadenopathy: []No []Yes........... Scars: []No []Yes........... Note: measurements are in centimeters AREOLA DIAMETER R: ...6.. L: ..6... SN to NIPPLE: R: ..32... L: ...31.. WIDTH: R: ..19... L: ..19... MIDLINE to NIPPLE: R: ..12... L: ...12.. IMF to NIPPLE: R: ..8... L: ..9... UPPER POLE to NIPPLE R: ..15... L: ..15... 2-PD AREOLA (MM) R: ..... L: ..... PTOSIS: R: Grade I[] II[] III[] L: Grade I[] II[] III[] MEDIALLY DISPLACED NIPPLE: []None []Mild []Moderate []Severe []Right []Left ESTIMATED GRAMS OF TISSUE TO BE REMOVED: Left: ..180-450...gms Right: ..180-450...gms Assessment: [x]Breast Hypertrophy (N62) []breast assymetry [x]Back Pain (M54.6) []Shoulder Grooving (M95.4) [x]Intertrigo (L30.4) []Chronic Breast Pain (N64.4) []Headache (R51) []Neck Pain(M54.2) [x]Shoulder Pain (M53.82, M25.11-M25.519) []Backache (M54.89) []Thoracic Kyphosis (M40.00, M40.14, M40.204, M40.209) []Uper Extremity Paresthesia (R20.0-R20.3, R20.8) []history of breast cancer The patient is a [x]good []adequate []poor candidate for breast reduction with a []inferior [x]superior []superomedial []central []lateral pedicle technique. Photographs have been taken and will be sent to the insurance company as necessary. Plan: [x] mammogram [] US [] MRI []consult breast center [x]Planned procedure: bilateral breast reduction; I have discussed the procedure in detail with the patient and she agrees to the procedure understanding the roles and tasks of the personnel to be involved; the alternatives to the procedure to include liposuction or observation. She understands the risks to include but not be limited to infection, bleeding, pain, scar, need for re-operation, recurrence, asymmetry, loss of flap, loss of nipple, loss of nipple height, nipple sensation change, inability to breast feed, poor aesthetic results, skin depigmentation, skin necrosis and anesthetic/perioperative complications (DVT, PE, DE, and ). The patient agrees and signed consent to the procedure attesting to her understanding. Follow up once approved by insurance. The patient is seen and examined by Dr. Browne and the following reflects his/her service. Scribed by Radha Jackson RN I agree with the Chief Complaint, ROS, and Past Histories independently gathered by the clinical pit crew support worker and the remaining scribed note accurately describes my personal service to the patient. I spent a total of 30 minutes on the date of the service which included preparing to see the patient, [id number] patient care, completing clinical documentation, obtaining and/or reviewing separately obtained history, performing a medically appropriate examination and counseling and educating the patient/family/caregiver. Gentry Browne MD PhD November 27, 2022 12:22 PM This note was generated with voice recognition software and may contain errors, including spelling, grammar, syntax and misrecognition of what was dictated, that are not fully corrected. documented in this encounter [facility] 11-22-2022 History of Present illness Narrative SUBJECTIVE: HEPATITIS B(1 of 3 - 3-dose series) Never done DEPRESSION ASSESSMENT Never done HPI Josseline Willard is a 37 year old female. PMH significant for ACTIVE PROBLEM LIST Obesity, Class I, Bmi 30-34.9 Dysphagia PCP: Luis Hart MD Presents today regarding hip pain, present since July. Radiates from hip to gluteus.No injury initially. Reports lateral release of her right knee per Dr Bond Jun 2018. She was seen for right hip pain September 25, 2022. Noted to have hip dysplasia. Physical therapy was advised. She asked referral to be sent to [facility]. Completed PT: yes, she is not noting any improvement HEP:yes Improved: no OTC treatments: Tylenol and ibuprofen now and then, does help some but often has GI upset so avoids. Seen by general surgeon, Dr. Cabrera for GERD. Lynx device removed. Upper GI, EGD and manometry ordered. She was referred to obesity medicine. Review of Systems Constitutional: Negative. Musculoskeletal: Positive for arthralgias. Objective BP 112/80 Pulse 80 Resp 16 Wt 81.2 kg (179 lb) LMP 05/01/2022 SpO2 99% BMI 30.02 kg/m Physical Exam Vitals and nursing note reviewed. Constitutional: Appearance: Normal appearance. HENT: Head: Normocephalic and atraumatic. Eyes: Conjunctiva/sclera: Conjunctivae normal. Cardiovascular: Rate and Rhythm: Normal rate. Pulmonary: Effort: Pulmonary effort is normal. Musculoskeletal: Right hip: Tenderness present. Skin: General: Skin is warm and dry. Neurological: General: No focal deficit present. Mental Status: She is alert and oriented to person, place, and time. ALLERGIES Allergen Reactions Morphine Itching, Shortness of Breath Medications pantoprazole DR (PROTONIX) 40 mg tablet Take 1 tablet by mouth once daily. sucralfate (CARAFATE) 1 gram tablet four times daily. cholestyramine-sucrose (QUESTRAN) 4 gram powder Take 4 g by mouth three times daily with meals. (Patient not taking: Reported on 10/24/2022) polyethylene glycol 3350 (MIRALAX) 17 gram/dose powder Take 17 g by mouth once daily. Dissolve dose in 4 - 8 ounces of liquid and take as directed. (Patient not taking: No sig reported) melatonin 3 mg capsules Take by mouth daily at bedtime. 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 Right hip pain - ICD9: 719.45, ICD10: M25.551 She notes hip pain which was exacerbated starting in July 2022, not improved with physical therapy and home exercises. She would like to see orthopedic provider. - CONSULT TO ORTHOPAEDICS Endorse establish with Luis Hart MD appt. Taylor Willard APRN.CNS Medical Decision Making: Problems: Low: Acute, uncomplicated illness or injury Data: Independent interpretation of test from other physician/QHCP Medical Decision Making Level: 3 - Low documented in this encounter [facility] 11-19-2022 Miscellaneous Notes Radiology Service Progress Note PATIENT NAME: Josseline Willard DATE OF SERVICE: November 19, 2022 TIME: 9:07 AM PATIENT IDENTITY VERIFICATION COMPLETED USING TWO (2) IDENTIFIERS: Name and Date of confirmed by patient verbally and Name and Date of confirmed by identification band. FALL SCREENING: Has the patient had 2 falls in the last year or 1 fall with injury or currently using an Ambulatory Assistive Device (Walker, Cane, Wheelchair, Crutches, etc.)? No PATIENT GENDER DATA: Female. status: : No status: NO. PATIENT RELEVANT IMPLANT DATA REVIEWED: Not Applicable RADIOLOGY DEPARTMENT: General X-ray: Exam(s) Completed: GI/ Procedure(s): Upper GI with barium contrast PERIPHERAL IV DATA: Not applicable SIGNED BY: RT Jerry(R) November 19, 2022 9:07 AM documented in this encounter [facility] 10-25-2022 Miscellaneous Notes Mano scheduled for 12/20/2022 @ 1:00 pm followed by JOE/Rodrigo at 2:00 pm. Prep/instructions given to patient at checkout yesterday. Patricia Peña MA documented in this encounter [facility] 10-25-2022 Miscellaneous Notes Addended by: PATRICIA PEÑA on: 10/25/2022 08:30 AM Modules accepted: Orders documented in this encounter [facility] [facility] History of Present illness Narrative SURGICAL SERVICES HISTORY AND PHYSICAL EXAMINATION SERVICE DATE: 10/24/2022 SERVICE TIME: 2:19 PM PRIMARY CARE PHYSICIAN: Luis Hart MD SUBJECTIVE CHIEF COMPLAINT: reflux HISTORY OF PRESENT ILLNESS: Ms. Willard is a 37 year old female with a PMH of anxiety, GERD with reflux esophagitis status post hiatal hernia repair with LINX (Dr. Goodson 12/2019; now s/p removal), hx of basal cell carcinoma, and IBS who presents for follow up of GERD symptoms. I last saw her in clinic on 07/18/22 at which time she was feeling well and endorsed near complete resolution of the former sensation of stacking but she did continue with symptoms of reflux. She was started on Questran at that time for bile reflux. She tried taking the questran for two months and she did not see a major improvement in symptoms. Today she reports that thee former stacking sensation has resolved, but she is experiencing a sensation of food getting stuck at the top of her throat. She also experiences regurgitation and bringing food back up hours after eating. Heartburn has worsened for her. Regarding the dysphagia, she has undergone extensive ENT and esophageal workup and workup has been negative. She is taking Protonix daily, but she needs a refill Former workup: - EGD ([facility]va; 12/07/21): normal EGD - Pathology: Benign squamous mucosa with focal mild chronic inflammation - negative for EoE - CT Abd/pelvis (12/21/21): no acute abd/pelvic process. LINX device appears in proper placement on my assessment - MBS (11/21/21): WNL - EGD (06/02/20): report not available in Care Everywhere - UGI (02/22/20): mild narrowing of distal esophagus as traverses the Linx device. Delay in esophageal emptying. Remaining esophagus is WNL. No GERD. - Manometry: EGJOO secondary to LINX. IRP 19.4 mmHg, 40% fragmented swallows - Esophagram (01/31/22): Status post LINX procedure with mild delay in passage of oral contrast through this region and associated slight dilatation of the distal esophagus. No reflux identified Per my previous note: Josseline states that she has had stomach issues for many years, since 2008, for which she initially treated with extensive dietary changes and eventually underwent laparoscopic cholecystectomy without change in symptoms. She then began work up with Dr. Allan and Dr. Goodson and eventually underwent hiatal hernia repair with Linx device placement in 12/2019. Since surgery she continues with the same constant epigastric pain and nausea that she had prior to surgery. She endorses food stacking and the sensation of food sitting in her throat/getting stuck and also reports regurgitation of undigested food - this occurs with nearly every meal. She denies emesis since the Linx (emesis was common for her prior to surgery). She also endorses esophageal pain and substernal burning which feels similar to the heartburn she experienced prior to surgery. Due to the aforementioned symptoms, since LINX placement she has undergone at least [address] Goodson. She states that she had no relief of symptoms with any of these dilations. Since undergoing LINX placement she has also undergone further extensive testing and eventually underwent tonsillectomy and allergy testing due to the issues with difficulty swallowing. She continues with no change in symptoms. 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 Goodson D AND C 2012 EGD 06/02/2020 Dr. Goodson EGD numerous EGD 11/09/2019 Dr. Goodson EGD WITH BIOPSY(S) 04/14/2018 Grade A reflux esophagitis, bile gastritis, neg H Pylori EGD WITH BIOPSY(S) 12/07/2021 Dr. Durham ESOPHAGEAL DILATION (AG) x2 ESOPHAGEAL MANOMETRY 02/14/2022 Dr. Cabrera EXTRACTION ERUPTED TOOTH 2011 wisdom teeth F EGD WITH DILATATION 02/23/2020 Dr. Goodson F EGD WITH REMOVAL FOREIGN BODY 07/03/2022 removal of Linx device; Dr. Cabrera GASTRIC EMPTYING STUDY 09/28/2019 normal- [facility] HIATAL HERNIA REPAIR HX 12/24/2019 Dr. Goodson also did linx procedure at the same time KNEE SURGERY HX Right 06/2018 LAPAROSCOPIC CHOLECYSTECTOMY 12/04/2016 LAPS ESOPHGL SPHINCTER AUGMENT PROC PLACE DEVICE 12/24/2019 LINX placement; Dr. Goodson NOSE SURGERY HX excision of Squamous cell carcinoma under nose PAST SURGICAL HISTORY OF 05/2010 lipoma removed from back PAST SURGICAL HISTORY OF Left excision of basal cell carcinoma on cheek TONSILLECTOMY HX 09/01/2020 TOTAL ABDOM HYSTERECTOMY 05/01/2022 TUBAL LIGATION HX 12/11/2010 FAMILY HISTORY: FAMILY HISTORY Problem Relation Age of Onset No Known Problems Mother Hypertension Father Hyperlipidemia Father Leukemia Paternal Grandfather Ovarian cancer Paternal Aunt 30 Colon Cancer No Family History SOCIAL HISTORY: Social History Tobacco Use Smoking status: Never Smokeless tobacco: Never Vaping Use Vaping Use: Never used Substance Use Topics Alcohol use: Yes Comment: Rarely Drug use: Never Comment: denies medical THC card MEDICATIONS: Current Outpatient Medications Medication Sig pantoprazole DR (PROTONIX) 40 mg tablet Take 1 tablet by mouth once daily. (Patient not taking: Reported on 10/24/2022) cholestyramine-sucrose (QUESTRAN) 4 gram powder Take 4 g by mouth three times daily with meals. (Patient not taking: Reported on 10/24/2022) sucralfate (CARAFATE) 1 gram tablet four times daily. (Patient not taking: No sig reported) polyethylene glycol 3350 (MIRALAX) 17 gram/dose powder Take 17 g by mouth once daily. Dissolve dose in 4 - 8 ounces of liquid and take as directed. (Patient not taking: No sig reported) melatonin 3 mg capsules Take by mouth daily at bedtime. (Patient not taking: No sig reported) No current facility-administered medications for this visit. ALLERGIES: ALLERGIES Allergen Reactions Morphine Itching, Shortness of Breath COMPLETE REVIEW OF SYSTEMS: Review of Systems Constitutional: Negative for chills, diaphoresis, fever and malaise/fatigue. HENT: Negative for congestion, hearing loss, nosebleeds, sinus pain, sore throat and tinnitus. Eyes: Negative for blurred vision, double vision, pain and redness. Respiratory: Negative for cough, hemoptysis, sputum production, shortness of breath and wheezing. Cardiovascular: Negative for chest pain, palpitations, orthopnea, leg swelling and PND. Gastrointestinal: Positive for heartburn and vomiting (regurgitation). Negative for abdominal pain, blood in stool, constipation, diarrhea and nausea. Genitourinary: Negative for dysuria, frequency, hematuria and urgency. Musculoskeletal: Negative for back pain, falls, joint pain, myalgias and neck pain. Skin: Negative for itching and rash. Neurological: Negative for dizziness, speech change, focal weakness, seizures, loss of consciousness, weakness and headaches. Endo/Heme/Allergies: Does not bruise/bleed easily. Psychiatric/Behavioral: Negative for depression, hallucinations, memory loss, substance abuse and suicidal ideas. The patient is nervous/anxious. The patient does not have insomnia. OBJECTIVE PHYSICAL EXAM: BP 123/78 Pulse 87 Ht 5' 4.75 (1.65m) Wt 182 lb (82.6kg) LMP 05/01/2022 BMI 30.51 kg/(m^2). Physical Exam Vitals reviewed. HENT: Head: Normocephalic and atraumatic. Eyes: Extraocular Movements: Extraocular movements intact. Conjunctiva/sclera: Conjunctivae normal. Pupils: Pupils are equal, round, and reactive to light. Cardiovascular: Rate and Rhythm: Normal rate. Pulmonary: Effort: Pulmonary effort is normal. No respiratory distress. Skin: General: Skin is warm and dry. Coloration: Skin is not jaundiced or pale. Neurological: General: No focal deficit present. Mental Status: She is oriented to person, place, and time. Psychiatric: Mood and Affect: Mood normal. Behavior: Behavior normal. DATA: Diagnostic tests reviewed for today's visit: EMR reviewed Plan ASSESSMENT AND PLAN Josseline Willard is a 37 year old female with a PMH as noted above who presents with GERD. 1. Gastroesophageal reflux disease, unspecified whether esophagitis present - ICD9: 530.81, ICD10: K21.9 (primary diagnosis) - Today in clinic we discussed her ongoing symptoms of GERD. She is working on weight loss and dietary modification and is taking Protonix daily with continued symptoms. After LINX removal we discussed waiting a few months and then repeating testing for GERD. Today we dicussed this and her symptoms. Will plan to perform UGI, EGD with yo placement, and manometry. Then will follow up in clinic. Stop use of Protonix 5 days prior to EGD with yo placement - Discussed lifestyle modifications including losing weight, limiting caffeine, no meals three hours before sleep, and head of bed elevation - Continue treatment with Protonix 40 mg daily - Setup for EGD - XR UPPER GI ROUTINE DOUBLE CONTRAST/AIR - EGD - THERAPEUTIC, EUS, OR TUBE INTERVENTIONS 2. Esophageal dysphagia - ICD9: 787.29, ICD10: R13.19 - As above in #1 - XR UPPER GI ROUTINE DOUBLE CONTRAST/AIR - MANOMETRY ESOPHAGEAL 3. Class 1 obesity due to excess calories without serious comorbidity with body mass index (BMI) of 30.0 to 30.9 in adult - ICD9: 278.00, V85.30, ICD10: E66.09, Z68.30 - She was diagnosed with Hip dysplasia and has been undergoing therapy for this. She is working hard on weight loss with diet and exercise and has not been able to lose weight. Consult placed to obesity medicine Medical Decision Making: Problems: Moderate: 2+ stable chronic illnesses and 1+ chronic illnesses with change Data: Unique test result(s) reviewed: 3+ Unique test(s) ordered: 3+ Discussed management or test w/ external physician/QHCP/source Risk: Moderate: Drug management and Moderate risk from testing/treatment Medical Decision Making Level: 4 - Moderate SIGNATURE: Yulissa Cabrera MD PATIENT NAME: Josseline Willard DATE: October 24, 2022 TIME: 2:19 PM PAGER/CONTACT #: [id number] documented in this encounter [facility] 09-26-2022 Miscellaneous Notes Pt called back and she got this message . She will be going thru [facility]. orders faxed. and supporting information . Done Melissa Solomon LPN documented in this encounter [facility] 09-25-2022 History of Present illness Narrative CC: Patient presents with: right hip pain x 2 months HPI Josseline Willard is a 37 year old female who presents with hip pain that started 2 months ago. Gradually worsening. Injury: denies a recent or remote history of hip injury or trauma. No strenuous activities or cardio such as running. Location: lateral aspect of the hip and described as constant dull ache. Associated symptoms: no back pain, no radiation of hip pain, and no numbness or tingling noted of the lower extremity. Grating, clicking, feeling like leg is giving out: No Aggravated by walking upstairs, getting out of bed and getting into and out of a car. Interferes with sleep at times. Alleviated with repositioning. 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 Goodson D AND C 2012 EGD 06/02/2020 Dr. Goodson EGD numerous EGD 11/09/2019 Dr. Goodson EGD WITH BIOPSY(S) 04/14/2018 Grade A reflux esophagitis, bile gastritis, neg H Pylori EGD WITH BIOPSY(S) 12/07/2021 Dr. Durham ESOPHAGEAL DILATION (AG) x2 ESOPHAGEAL MANOMETRY 02/14/2022 Dr. Cabrera EXTRACTION ERUPTED TOOTH 2010 wisdom teeth F EGD WITH DILATATION 02/23/2020 Dr. Goodson GASTRIC EMPTYING STUDY 09/28/2019 normal- [facility] HIATAL HERNIA REPAIR HX 12/24/2019 Dr. Goodson also did linx procedure at the same time KNEE SURGERY HX Right 06/2018 LAPAROSCOPIC CHOLECYSTECTOMY 12/04/2016 LAPS ESOPHGL SPHINCTER AUGMENT PROC PLACE DEVICE 12/24/2019 LINX placement; Dr. Goodson PAST SURGICAL HISTORY OF 05/2010 lipoma removed from back PAST SURGICAL HISTORY OF Left excision of basal cell carcinoma on cheek PAST SURGICAL HISTORY OF excision of Squamous cell carcinoma under nose TONSILLECTOMY HX 09/01/2020 TOTAL ABDOM HYSTERECTOMY 05/01/2022 TUBAL LIGATION HX 12/11/2010 ALLERGIES Morphine MEDICATIONS pantoprazole DR (PROTONIX) 40 mg tablet Take 1 tablet by mouth once daily. cholestyramine-sucrose (QUESTRAN) 4 gram powder Take 4 g by mouth three times daily with meals. traMADol (ULTRAM) 50 mg tablet Take 1 tablet by mouth twice daily. (Patient not taking: Reported on 07/18/2022) sucralfate (CARAFATE) 1 gram tablet four times daily. (Patient not taking: No sig reported) polyethylene glycol 3350 (MIRALAX) 17 gram/dose powder Take 17 g by mouth once daily. Dissolve dose in 4 - 8 ounces of liquid and take as directed. (Patient not taking: No sig reported) melatonin 3 mg capsules Take by mouth daily at bedtime. (Patient not taking: No sig reported) FAMILY HISTORY Problem Relation Age of Onset No Known Problems Mother Hypertension Father Hyperlipidemia Father Leukemia Paternal Grandfather Ovarian cancer Paternal Aunt 30 Colon Cancer No Family History Social History Tobacco Use Smoking status: Never Smokeless tobacco: Never Vaping Use Vaping Use: Never used Substance Use Topics Alcohol use: Yes Comment: Rarely Drug use: Never Comment: denies medical THC card PHYSICAL EXAM BP 118/80 Pulse 73 Resp 14 Wt 83 kg (183 lb) LMP 05/01/2022 BMI 30.69 kg/m General appearance: healthy, alert, cooperative, pleasant, in no acute distress Musculoskeletal: Gait and Station WNL moderate tenderness about the iliac crest and gluteus medius muscle Normal stability exam of the hip Bilateral hip- full and painless flexion/extension; full and painless IR/ER Negative straight leg raise bilaterally ASSESSMENT/PLAN: 1. Right hip pain - ICD9: 719.45, ICD10: M25.551 (primary diagnosis) Differentials include pain secondary to weakness of the abdominal and/or lower back muscles, referred pain from SI joint/low back, osteoarthritis, stress fracture - XR HIP GENERAL 3V PELV/AP/LAT RIGHT - start prednisone burst with taper - patient will likely need PT, will wait for results of x-ray 2. Abnormal thyroid ultrasound - ICD9: 794.5, ICD10: R93.89 Needs yearly TSH - TSH BLD October 2022 Prescription instructions reviewed with patient as applicable. Potential red flag symptoms discussed with the patient. Reviewed appropriate action plan to take if red flag symptoms occur. Patient agreeable to treatment plan. Dariela Dent APRN.CNP documented in this encounter [facility] 07-04-2022 History of Present illness Narrative TRANSITIONAL CARE MANAGEMENT (TCM) COMMUNITY MONITORING PROGRAM Provider Action/FYI: Continuation of 1st attempt, spoke to patient and she is doing better, abdomen is a little sore, and the 5 abdominal incisions look good, dry and intact, pt kindly declines f/u with PCP, she has a f/u with General Surgery,, no questions/concerns at this time SUMMARY: Pt discharged from [facility] on 07/03/22. Admitted for: Dysphagia S/P Linx Removal Contact made with patient: Yes Hi my name is Siena Duarte RN and I am calling from the [facility] on behalf of your PCP, Luis Hart MD I understand you were recently in the hospital so I am calling to check in with you to ensure you are feeling well now that you're home. May I ask you a few questions related to your hospital stay and well-being? Yes Contact with patient post discharge, spoke to patient. Patient identified by name and . Do you feel your health is BETTER, WORSE, or the SAME since leaving the hospital? Better ACTION TAKEN: Patient indicated symptoms are better or same, no action required. Continue outreach. MEDICATIONS: Many patients have questions or concerns about their medications once they are home. Do you have any questions about taking your medications or which medication you should be on? No Do you need any medication refills at this time, including any of the medications you might take only when needed? No ACTION TAKEN: No action required For RNs or Pharmacy completing outreach ONLY, was a medication review completed? Yes SOCIAL: We would like to make sure you have what you need so that your basics needs are met - including your personal safety, food, housing and medications. Would you like to speak with a social work executive team leader to help give you support for any of these needs? No It can be normal to feel anxious or down during a time like this. Would you like to talk to a mental health professional about how you have been feeling? No ACTION TAKEN: No action taken DISCHARGE INTRUCTIONS: Your discharge instructions / After Visit Summary (AVS) are important in guiding you through the recovery process. Do you have any questions related to your discharge instructions? No Do you have all the necessary equipment and supplies at home? Yes ACTION TAKEN: No action required I would like to help you schedule a hospital follow-up virtual or telephone visit with your PCP. This is a great way for you to connect with your provider to ensure you have safely transitioned home. If you are agreeable, I will send your request to a senior producer who will contact and assist you with that appointment. This will give you an opportunity to ask any questions or address any concerns you may have with your PCP. Inform the patient that if they have any questions or concerns prior to that appointment, to call their PCP's office right away. ACTION TAKEN: No action required, patient declines appointment. Your doctor would like us to remind you of the recommendations regarding the coronavirus (Covid19) outbreak: Avoid public places as much as possible. Avoid close contact (within 6 feet) with others you don t live with, especially if they are sick. Stay home if you are sick. Wash your hands regularly for at least 20 seconds with soap and water. Wear a cloth mask in public places to help reduce community spread. Do not go to your Doctor s office unless instructed to do so. For any non-emergency symptoms, call your Doctor s office to get instructions on how to manage (we might recommend a telephone or virtual visit). For emergency symptoms, proceed to Emergency Department as usual but inform them of cough and fever symptoms JORGE if present (or call on the way if possible). TCM Home Visit Referral Source of Stratification: [facility] Admission Status: Discharged Readmission Risk Score: 8 JULIANNE Score: 0 Program referral criteria met: Does not meet referral criteria Patient does not qualify for High Risk TCM Home Visit program due to: Does not meet referral criteria Patient does not quality for High Risk TCM Home Visit Program due to: Does not meet referral criteria Preferred contact number: [phone] Is patient staying somewhere other than the listed home address: No Dialysis Patient: No TRANSITIONAL CARE MANAGEMENT (TCM) COMMUNITY MONITORING PROGRAM Provider Action/FYI: 1st Outreach attempt, NA left message will try again tomorrow any urgent questions/concerns please call PCP Pt NEEDS f/u with PCP TCM Eligible through 07/17 Pt NEEDS Post-op f/u SUMMARY: Pt discharged from [facility] on 07/03/22. Admitted for: Dysphagia S/P LINX Removal Contact made with patient: No - next outreach attempt will be on next Outreach ended documented in this encounter [facility] 07-03-2022 Miscellaneous Notes please schedule p/o follow up in 2 weeks in clinic. Can be double booked w/ another p/o pt. documented in this encounter [facility] 06-29-2022 Miscellaneous Notes Form was filled out and signed by Janet. Faxed to number provided on form. Rosa nurse from bariatric surgery dept calling asking if pre op forms could be completed at faxed back now that labs are back? Pt is set for surgery on Saturday the .Fax number is on form. Snow saw her yesterday had filled out was just waiting on lab results. documented in this encounter [facility] 06-29-2022 Miscellaneous Notes Spoke with pt gave information provided. Pt voices understanding. left with patient to contact office for results Fatmata Chicas Ma Please let Josseline know that we received her lab results. Her liver enzyme is just a bit elevated. I'd like her to have this rechecked in a month. Her platelet level is also just a bit elevated. From our standpoint, this does not prevent her from her surgery, but would refer to her surgeon. Lani Ortiz APRN.GLADIS documented in this encounter [facility] 06-28-2022 History of Present illness Narrative Chief Complaint Patient presents with: Pre-Op Exam HPI Josseline Willard is a 37 year old female who presents here today for Above Complaints. Josseline is an established patient of Dr. Tanner MD. Josseline is a new patient to me today. Here for pre-op clearance for Linx device removal. This will be under general anesthesia. Patient reports she is scheduled for sugery with Dr. Cabrera on 07/03/22, to have a Linx device removed from her esophagus. Reports it was placed in 2019 for acid reflux but never worked. Has had numerous dilations without success. Plan is to remove this device, heal/recovery, and then advance with additional surgery of possible Eladia fundoplication. Pt has had numerous surgeries, most recent in April for hysterectomy. Pt has never had trouble with anesthesia in the past. EKG 03/29/22 -- NSR Pt denies any cardiac or pulmonary concerns or complaints. Chronic conditions -- GERD --- stable, addressed during this surgery Seasonal Allergies -- stable. Well controlled on current regimen. Have you or anyone in your family ever had a problem with anesthesia?No Could you be ?No Do you have a cough/bronchitis/sinusitis? No Have you had or have a asthma/hayfever/pneumonia?No Do you have a cold?No Have you had any difficulties breathing/SOB or emphysema?No Do you have any bleeding tendencies?No Have you had anemia or any other blood disease or blood transfusion?No Do you have a heart murmur or irregular heart beat?No Have you ever had a heart attack?No Have you ever had angina or pain in your chest? No Do you have any pain? No Have you ever had high blood pressure/low blood pressure?No Do you have any contagious disease or infection/HIV?No Do you have diabetes/low blood sugar?No Have you ever had thyroid problems?No Have you ever had a stroke?No Have you ever had epilepsy or had seizures?No Have you ever had kidney problems?No Have you ever had liver problems/jaundice/hepatitis?No Have you ever had any gallbladder disease?Yes, removed. Are there any congregational or cultural practices that may alter your care or education?No Do you drink alcoholic beverages? If so how much?No Do you smoke, or did you ever? If so, how much? For how long?No Do you use social drugs?No Past medical history, appointments, medications, allergies reviewed. 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 Goodson D AND C 2012 EGD 06/02/2020 Dr. Goodson EGD numerous EGD 11/09/2019 Dr. Goodson EGD WITH BIOPSY(S) 04/14/2018 Grade A reflux esophagitis, bile gastritis, neg H Pylori EGD WITH BIOPSY(S) 12/07/2021 Dr. Durham ESOPHAGEAL DILATION (AG) x2 ESOPHAGEAL MANOMETRY 02/14/2022 Dr. Cabrera EXTRACTION ERUPTED TOOTH 2010 wisdom teeth F EGD WITH DILATATION 02/23/2020 Dr. Goodson GASTRIC EMPTYING STUDY 09/28/2019 normal- [facility] HIATAL HERNIA REPAIR HX 12/24/2019 Dr. Goodson also did linx procedure at the same time KNEE SURGERY HX Right 06/2018 LAPAROSCOPIC CHOLECYSTECTOMY 12/04/2016 LAPS ESOPHGL SPHINCTER AUGMENT PROC PLACE DEVICE 12/24/2019 LINX placement; Dr. Goodson PAST SURGICAL HISTORY OF 05/2010 lipoma removed from back PAST SURGICAL HISTORY OF Left excision of basal cell carcinoma on cheek PAST SURGICAL HISTORY OF excision of Squamous cell carcinoma under nose TONSILLECTOMY HX 09/01/2020 TOTAL ABDOM HYSTERECTOMY 05/01/2022 TUBAL LIGATION HX 12/11/2010 Family History FAMILY HISTORY Problem Relation Age of Onset No Known Problems Mother Hypertension Father Hyperlipidemia Father Leukemia Paternal Grandfather Ovarian cancer Paternal Aunt 30 Colon Cancer No Family History Patient Allergies ALLERGIES Allergen Reactions Morphine Itching, Shortness of Breath Current Medications Current Outpatient Medications on File Prior to Visit Medication Sig sucralfate (CARAFATE) 1 gram tablet four times daily. (Patient not taking: Reported on 06/28/2022) pantoprazole DR (PROTONIX) 40 mg tablet Take 1 tablet by mouth once daily. (Patient not taking: Reported on 06/28/2022) polyethylene glycol 3350 (MIRALAX) 17 gram/dose powder Take 17 g by mouth once daily. Dissolve dose in 4 - 8 ounces of liquid and take as directed. (Patient not taking: Reported on 06/28/2022) melatonin 3 mg capsules Take by mouth daily at bedtime. (Patient not taking: Reported on 06/28/2022) No current facility-administered medications on file prior to visit. Social History Social History Tobacco Use Smoking status: Never Smokeless tobacco: Never Vaping Use Vaping Use: Never used Substance Use Topics Alcohol use: Yes Comment: Rarely Drug use: Never Comment: denies medical THC card REVIEW OF SYSTEMS: as above Reviewed relevant PMHx, PSHx, Social Hx, current medications and allergies. Review of Symptoms REVIEW OF SYSTEMS See HPI. All other systems are negative. EXAM: BP 90/70 (BP Site: Left Arm, BP Position: Sitting, BP Cuff Size: Regular Adult) Pulse 68 Resp 14 Ht 164.5 cm (5' 4.76) Wt 82.4 kg (181 lb 9.6 oz) LMP 03/30/2022 BMI 30.44 kg/m General Appearance: Well appearing, alert, in no acute distress, well-hydrated, well nourished.. Skin: Skin color, texture, turgor normal, no suspicious rashes or lesions. Head: Normocephalic, no masses, lesions, tenderness or abnormalities. Lungs: Lungs clear to auscultation. No wheezing, rhonchi, rales.. Heart: RRR without murmur, gallop, or rubs. No ectopy. Abdomen: Normal abdominal exam, Abdomen soft, non-tender. Bowel sounds normal. No masses, organomegaly. Neurologic: Gait normal. Reflexes normal and symmetric. Sensation grossly intact.. Health Maintenance List HEPATITIS B(1 of 3 - 3-dose series) Never done DTAP,TDAP,TD(1 - Tdap) due on 02/21/2023 COVID-19 VACCINE(1) due on 02/21/2023 INFLUENZA(1) due on 04/19/2023 DEPRESSION SCREENING due on 02/21/2023 PAP TESTING due on 12/25/2026 HPV TESTING due on 12/25/2026 HEPATITIS C SCREENING Completed HIV SCREENING Completed ASSESSMENT/PLAN: 1. Pre-op exam - ICD9: V72.84, ICD10: Z01.818 EKG within 6 months and normal. Needs routine blood work, CBC and CMP, today to clear for surgery. Pending no significant abnormalities in blood work -- pt is cleared from my standpoint. Will fill out paperwork once labs are resulted and fax to number on sheet. - COMP METABOLIC PANEL - CBC + DIFF 2. Gastroesophageal reflux disease with esophagitis, unspecified whether hemorrhage - ICD9: 530.11, ICD10: K21.00 Continue with surgery pending blood work results. 3. Seasonal allergies - ICD9: 477.9, ICD10: J30.2 Stable on regimen. RTO as needed. Prescription instructions reviewed with patient as applicable. Potential red flag symptoms discussed with the patient. Reviewed appropriate action plan to take if red flag symptoms occur. Patient agreeable to treatment plan. Snow Roberto APRN.FINANCIAL MANAGER [id number] [place] [address] documented in this encounter [facility] 06-27-2022 Miscellaneous Notes Form received and patient rescheduled for 06/28 with [facility] [employer] [facility]. Form routed to [employer]'s nurse desk. form rec'd but pt still has no pre op appt arranged. TC to patient. Left message to call office. 06/22/2022 1:26 PM Several appointment's available next week with other [facility] provider's. Please schedule for 40 min. Patient returned call and went over notes. Patient said form was sent on her my chart. Gave her the fax number to have form faxed. Her surgery is scheduled for 07/02/[address] Cabrera, removal of band around esophagus. No appt opening for pre op clearance before her surgery date. Called and left a voicemail for the Patient to call back and ask for a nurse to receive the providers message. Janneth Church RN She needs appointment for preop. I don't know if forms were received or not Dariela Dent APRN.CNP Patient reports she is scheduled for sugery with Dr. Cabrera in 11 days, to have a Linx device removed from her esophagus. Reports it was placed in 2019 for acid reflux but never worked. Reports Dr. Cabrera faxed surgery clearance form to [facility]. Asking if you received it, and does she need an appt with you to get clearance for this procedure. Please advise patient. Last appt with [facility], to est care: 02-21-22. documented in this encounter [facility] 06-14-2022 Miscellaneous Notes Medical clearance letter faxed to Dariela Dent APRN.CNP. I spoke with the patient and confirmed this provider will be her new PCP. Naomy Bruner RN June 14, 2022 1:48 PM documented in this encounter [facility] 05-29-2022 Miscellaneous Notes Medical clearance letter faxed to Dr. Thomas. Naomy Bruner RN May 29, 2022 11:23 AM documented in this encounter [facility] 05-24-2022 Miscellaneous Notes ----- Message from Vesna Berry Pss sent at 05/16/2022 9:28 AM EDT ----- Regarding: Deborah SX Schedule for surgery for dx laparoscopy for 2 hours - no earlier than 5 weeks from now Obtain operative notes from DR. Goodson at [facility] for Linx procedure placement (December 2019) Had her sign a records form- will attempt to get records documented in this encounter [facility] 05-17-2022 Miscellaneous Notes We received records from Dr. Goodson and they are scanned in for your review. Diane Akhtar Ma documented in this encounter [facility] 05-16-2022 History of Present illness Narrative SURGICAL SERVICES HISTORY AND PHYSICAL EXAMINATION SERVICE DATE: 05/16/2022 SERVICE TIME: 9:13 AM PRIMARY CARE PHYSICIAN: Logan Thomas MD SUBJECTIVE CHIEF COMPLAINT: Follow up after dilation HISTORY OF PRESENT ILLNESS: Ms. Willard is a 36 year old female with a PMH of anxiety, GERD with reflux esophagitis status post hiatal hernia repair with LINX (Dr. Goodson 12/2019), hx of basal cell carcinoma, IBS who presents for follow up after recent pneumatic dilation. She underwent esophageal dilation on 04/16/22 due to EGJOO due to presumed narrowing secondary to the LINX device. She underwent dilation with 30-mm Rigiflex achalasia balloon dilator. Today she reports some improvement in dysphagia since undergoing the recent dilation. However, she endorses continued dysphagia and stacking sensation (although it is much improved); she also does endorse increased acid reflux since the dilation. She did present to the ER following the recent dilation due to pain. This is resolved. Two weeks ago she underwent lap MEGHAN on 05/01/22. Per my previous note: Josseline states that she has had stomach issues for many years, since 2008, for which she initially treated with extensive dietary changes and eventually underwent laparoscopic cholecystectomy without change in symptoms. She then began work up with Dr. Allan and Dr. Goodson and eventually underwent hiatal hernia repair with Linx device placement in 12/2019. Since surgery she continues with the same constant epigastric pain and nausea that she had prior to surgery. She endorses food stacking and the sensation of food sitting in her throat/getting stuck and also reports regurgitation of undigested food - this occurs with nearly every meal. She denies emesis since the Linx (emesis was common for her prior to surgery). She also endorses esophageal pain and substernal burning which feels similar to the heartburn she experienced prior to surgery. Due to the aforementioned symptoms, since LINX placement she has undergone at least [address] Goodson. She states that she had no relief of symptoms with any of these dilations. Since undergoing LINX placement she has also undergone further extensive testing and eventually underwent tonsillectomy and allergy testing due to the issues with difficulty swallowing. She continues with no change in symptoms. Social: endorses rare etoh use; denies use of tobacco and illicit drug use Workup: - EGD (Marva; 12/07/21): normal EGD - Pathology: Benign squamous mucosa with focal mild chronic inflammation - negative for EoE - CT Abd/pelvis (12/21/21): no acute abd/pelvic process. LINX device appears in proper placement on my assessment - MBS (11/21/21): WNL - EGD (06/02/20): report not available in [facility]where - UGI (02/22/20): mild narrowing of distal esophagus as traverses the Linx device. Delay in esophageal emptying. Remaining esophagus is WNL. No GERD. - Manometry: EGJOO secondary to LINX. IRP 19.4 mmHg, 40% fragmented swallows - Esophagram (01/31/22): Status post LINX procedure with mild delay in passage of oral contrast through this region and associated slight dilatation of the distal esophagus. 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 Goodson D AND Kerry 2012 EGD 06/02/2020 Dr. Goodson EGD numerous EGD 11/09/2019 Dr. Goodson EGD WITH BIOPSY(S) 04/14/2018 Grade A reflux esophagitis, bile gastritis, neg H Pylori EGD WITH BIOPSY(S) 12/07/2021 Dr. Durham ESOPHAGEAL DILATION (AG) x2 ESOPHAGEAL MANOMETRY 02/14/2022 Dr. Cabrera EXTRACTION ERUPTED TOOTH 2010 wisdom teeth F EGD WITH DILATATION 02/23/2020 Dr. Goodson GASTRIC EMPTYING STUDY 09/28/2019 normal- [facility] HIATAL HERNIA REPAIR HX 12/24/2019 Dr. Goodson also did linx procedure at the same time KNEE SURGERY HX Right 06/2018 LAPAROSCOPIC CHOLECYSTECTOMY 12/04/2016 LAPS ESOPHGL SPHINCTER AUGMENT PROC PLACE DEVICE 12/24/2019 LINX placement; Dr. Goodson PAST SURGICAL HISTORY OF 05/2010 lipoma removed from back PAST SURGICAL HISTORY OF Left excision of basal cell carcinoma on cheek PAST SURGICAL HISTORY OF excision of Squamous cell carcinoma under nose TONSILLECTOMY HX 09/01/2020 TOTAL ABDOM HYSTERECTOMY 05/01/2022 TUBAL LIGATION HX 12/11/2010 FAMILY HISTORY: FAMILY HISTORY Problem Relation Age of Onset No Known Problems Mother Hypertension Father Hyperlipidemia Father Leukemia Paternal Grandfather Ovarian cancer Paternal Aunt 30 Colon Cancer No Family History SOCIAL HISTORY: Social History Tobacco Use Smoking status: Never Smoker Smokeless tobacco: Never Used Vaping Use Vaping Use: Never used Substance Use Topics Alcohol use: Yes Comment: Rarely Drug use: Never Comment: denies medical THC card MEDICATIONS: Current Outpatient Medications Medication Sig sucralfate (CARAFATE) 1 gram tablet four times daily. pantoprazole DR (PROTONIX) 40 mg tablet Take 1 tablet by mouth once daily. polyethylene glycol 3350 (MIRALAX) 17 gram/dose powder Take 17 g by mouth once daily. Dissolve dose in 4 - 8 ounces of liquid and take as directed. melatonin 3 mg capsules Take by mouth daily at bedtime. No current facility-administered medications for this visit. ALLERGIES: ALLERGIES Allergen Reactions Morphine Itching, Shortness of Breath COMPLETE REVIEW OF SYSTEMS: Review of Systems Constitutional: Negative for chills, diaphoresis, fever and malaise/fatigue. HENT: Negative for congestion, hearing loss, nosebleeds, sinus pain, sore throat and tinnitus. Eyes: Negative for blurred vision, double vision, pain and redness. Respiratory: Negative for cough, hemoptysis, sputum production, shortness of breath and wheezing. Cardiovascular: Negative for chest pain, palpitations, orthopnea, leg swelling and PND. Gastrointestinal: Positive for heartburn and nausea. Negative for abdominal pain, blood in stool, constipation, diarrhea and vomiting. Genitourinary: Negative for dysuria, frequency, hematuria and urgency. Musculoskeletal: Negative for back pain, falls, joint pain, myalgias and neck pain. Skin: Negative for itching and rash. Neurological: Negative for dizziness, speech change, focal weakness, seizures, loss of consciousness, weakness and headaches. Endo/Heme/Allergies: Does not bruise/bleed easily. Psychiatric/Behavioral: Negative for depression, hallucinations, memory loss, substance abuse and suicidal ideas. The patient is nervous/anxious. The patient does not have insomnia. OBJECTIVE PHYSICAL EXAM: BP 99/68 Pulse 110 Ht 5' 5 (1.65m) Wt 182 lb 9.6 oz (82.8kg) LMP 03/30/2022 BMI 30.39 kg/(m^2). Physical Exam Vitals reviewed. Constitutional: Appearance: Normal appearance. She is obese. HENT: Head: Normocephalic and atraumatic. Eyes: General: No scleral icterus. Extraocular Movements: Extraocular movements intact. Conjunctiva/sclera: Conjunctivae normal. Pupils: Pupils are equal, round, and reactive to light. Cardiovascular: Rate and Rhythm: Normal rate. Pulmonary: Effort: Pulmonary effort is normal. No respiratory distress. Skin: General: Skin is warm and dry. Coloration: Skin is not jaundiced or pale. Neurological: General: No focal deficit present. Mental Status: She is alert and oriented to person, place, and time. Psychiatric: Mood and Affect: Mood normal. Behavior: Behavior normal. DATA: Diagnostic tests reviewed for today's visit: EMR reviewed Plan ASSESSMENT AND PLAN Josseline Willard is a 36 year old female with a PMH as noted above who presents with with continued dysphagia after recent dilation. 1. Esophageal dysphagia - ICD9: 787.29, ICD10: R13.19 (primary diagnosis) - Today in clinic we discussed her ongoing symptoms and the minimal improvement she is experiencing after the recent dilation. I explained to her that we have two options - repeat Achalasia balloon dilation versus removal of the LINX device. She is adamant that she wishes to have the device removed as she is miserable and has been for two years. We discussed the potential risks of this removal - which include but are not limited to bleeding, infection, injury to surrounding structures, injury to the esophagus, stomach, and vagus nerves, and non-resolution of symptoms. She endorsed understanding and provided informed consent. - After LINX removal she will need to wait several months to see if esophageal dysphagia improves and then we will pursue possible repeat manometry and/or esophagram and then proceed with fundoplication. - Need OP note from Dr. Goodson to determine exact number of beads placed - Labs reviewed from 04/18/22 - CXR reviewed - PST - Will post pone surgery until she is post op MEGHAN at least 6 weeks - CONSULT TO PRE-SURGICAL TESTING (AG) 2. Heartburn - ICD9: 787.1, ICD10: R12 - Continue PPI use daily. We discussed how this may not be actual reflux that she is feeling, but rather the accumulation of food/fluids in her lower esophagus due to the narrowing caused by the LINX device. 3. Class 1 obesity due to excess calories without serious comorbidity with body mass index (BMI) of 30.0 to 30.9 in adult - ICD9: 278.00, V85.30, ICD10: E66.09, Z68.30 - She is working on weight loss Medical Decision Making: Problems: Moderate: 2+ stable chronic illnesses Data: Unique source(s) for external note(s) reviewed: 1 Unique test result(s) reviewed: 2 Discussed management or test w/ external physician/QHCP/source Risk: High: Decision on elective major surgery w/ risk factors Medical Decision Making Level: 5 - High SIGNATURE: Yulissa Cabrera MD PATIENT NAME: Josseline Willard DATE: May 16, 2022 TIME: 9:13 AM PAGER/CONTACT #: [id number] documented in this encounter [facility] 05-01-2022 History of Present illness Narrative Assisted up to the bathroom- voided without any difficulty Dr. Hernandez contacted with patient post op H&H. OK'd pt for discharge & ayers removal. documented in this encounter [employer] Work Phone: 05-01-2022 Hospital Discharge instructions KeaganKathy montoya, - 05/01/2022 Discharge Instructions for Hysterectomy A hysterectomy is a surgical procedure to remove the uterus. The procedure may be done alone or with the removal or repair of ovaries, fallopian tubes, the cervix, and part of the vagina. Depending on your surgery, the hospital stay varies from 1-5 days. Recovery can take 6-8 weeks. What You Will Need Dressing supplies Steps to Take Home Care Ask your doctor about when it is safe to shower, bathe, or soak in water. You may be advised to shower instead of taking a bath for the first two weeks after surgery. Keep your incision sites clean and dry. Wash your hands before changing the dressing. Do not douche or put anything in your vagina, such as a tampon, until your doctor tells you otherwise. Diet While in the hospital, you will progress from intravenous fluid to a normal diet. If recommended by your doctor, eat a high-fiber diet to promote healing and prevent constipation . Drink plenty of fluids. Physical Activity Ask your doctor when you will be able to return to work and drive. Return to your normal activities gradually. Most normal activities, including sex, can be resumed in about six weeks. Take daily walks as tolerated. Avoid heavy lifting and strenuous exercise until your doctor gives you permission to do so. Ask your doctor when and how to perform Kegel exercises . These exercises can strengthen the muscles of the pelvic floor and prevent or improve urinary incontinence , as well as enhance sexual pleasure. Medications If you had to stop medicines before the procedure, ask your doctor when you can start again. Medicines often stopped include: Anti-inflammatory drugs (eg, aspirin ) Blood thinners, like clopidogrel (Plavix) or warfarin (Coumadin) You will likely go home with a prescription for pain medicine. If you had your ovaries removed with your uterus, you may be given an estrogen supplement. Also, to prevent constipation, your doctor may recommend a stool softener. If you are taking medicines, follow these general guidelines: Take your medicine as directed. Do not change the amount or the schedule. Do not stop taking them without talking to your doctor. Do not share them. Know what the results and side effects. Report them to your doctor. Some drugs can be dangerous when mixed. Talk to a doctor or pharmacist if you are taking more than one drug. This includes [id number] medicine and herb or dietary supplements. Plan ahead for refills so you do not run out. Lifestyle Changes You and your doctor will plan lifestyle changes that will aid in your recovery. Some issues that may affect you include: You will no longer have monthly periods, and you can no longer get . control is not necessary. If your ovaries are removed, you may experience menopausal symptoms, which can be controlled with medicine. You may have a change in your sexual response. If your uterus has been removed, uterine contractions you may have felt during orgasm will no longer occur. If the ovaries have been removed, vaginal dryness may be a problem. Estrogen can help relieve this. You may enjoy sex more because you no longer feel pain from the condition. If you experience a sense of loss or feel depressed after your surgery, it is important to talk to your doctor about these feelings since they can be treated. Follow-up Schedule a follow-up appointment as directed by your doctor. If you have had a subtotal hysterectomy (meaning you still have your cervix), continue to have regular Pap smears . If you had this procedure because of cancer, other treatment, such as radiation or hormonal therapy, may be used as well. Call Your Doctor If Any of the Following Occurs It is important for you to monitor your recovery once you leave the hospital. That way, you can alert your doctor to any problems immediately. If any of the following occurs, call your doctor: Signs of infection, including fever and chills Redness, swelling, increasing pain, excessive bleeding, leakage, or any discharge from the incision site Incision opens up Nausea and/or vomiting that you cannot control with the medicines you were given after surgery, or which persist for more than two days after discharge from the hospital Dizziness or fainting Cough, shortness of breath, or chest pain Heavy bleeding Pain that you cannot control with the medicines you have been given Pain, burning, urgency or frequency of urination, or persistent bleeding in the urine Swelling, redness, or pain in your leg In case of an emergency, CALL 911 immediately. The following attachments cannot be sent through Care Everywhere.Laparoscopic Hysterectomy: Post-op (Angolan)documented in this encounter [facility] Work Phone: 04-16-2022 History of Past i llness Narrative Problem Noted Date Resolved Date Obesity, Class I, BMI 30-34.9 04/16/2022 documented as of this encounter (statuses as of 03/20/2023) [facility] History of Past illness Narrative* Problem Noted Date Resolved Date Obesity, Class I, BMI 30-34.9 04/16/2022 documented as of this encounter (statuses as of 03/28/2023) [facility] History of Past illness Narrative* Problem Noted Date Resolved Date Obesity, Class I, BMI 30-34.9 04/16/2022 documented as of this encounter (statuses as of 04/11/2023) [facility] History of Past illness Narrative* Problem Noted Date Resolved Date Obesity, Class I, BMI 30-34.9 04/16/2022 documented as of this encounter (statuses as of 04/11/2023) [facility] History of Past illness Narrative* Problem Noted Date Resolved Date Obesity, Class I, BMI 30-34.9 04/16/2022 documented as of this encounter (statuses as of 04/17/2023) [facility] History of Past illness Narrative* Problem Noted Date Resolved Date Obesity, Class I, BMI 30-34.9 04/16/2022 documented as of this encounter (statuses as of 04/22/2023) [address]27-2022 History of Past illness Narrative* Problem Noted Date Diagnosed Date Resolved Date Obesity, Class I, BMI 30-34.9 04/16/2022 03/20/2023 documented as of this encounter (statuses as of 04/30/2023) [address]27-2022 History of Past illness Narrative* Problem Noted Date Diagnosed Date Resolved Date Obesity, Class I, BMI 30-34.9 04/16/2022 03/20/2023 documented as of this encounter (statuses as of 05/07/2023) [address]27-2022 History of Past illness Narrative* Problem Noted Date Diagnosed Date Resolved Date Obesity, Class I, BMI 30-34.9 04/16/2022 03/20/2023 documented as of this encounter (statuses as of 05/07/2023) [address]27-2022 History of Past illness Narrative* Problem Noted Date Diagnosed Date Resolved Date Obesity, Class I, BMI 30-34.9 04/16/2022 03/20/2023 documented as of this encounter (statuses as of 05/10/2023) [facility]06-27-2022 History of Past illness Narrative* Problem Noted Date Diagnosed Date Resolved Date Obesity, Class I, BMI 30-34.9 04/16/2022 03/20/2023 documented as of this encounter (statuses as of 05/21/2023) [facility]-27-2022 History of Past illness Narrative* Problem Noted Date Diagnosed Date Resolved Date Obesity, Class I, BMI 30-34.9 04/16/2022 03/20/2023 documented as of this encounter (statuses as of 05/27/2023) [address]27-2022 History of Past illness Narrative* Problem Noted Date Diagnosed Date Resolved Date Obesity, Class I, BMI 30-34.9 04/16/2022 03/20/2023 documented as of this encounter (statuses as of 05/27/2023) [address]27-2022 History of Past illness Narrative* Problem Noted Date Diagnosed Date Resolved Date Obesity, Class I, BMI 30-34.9 04/16/2022 03/20/2023 documented as of this encounter (statuses as of 05/28/2023) [facility] History of Past illness Narrative* Problem Noted Date Diagnosed Date Resolved Date Obesity, Class I, BMI 30-34.9 04/16/2022 03/20/2023 documented as of this encounter (statuses as of 06/07/2023) [facility] History of Past illness Narrative* Problem Noted Date Diagnosed Date Resolved Date Obesity, Class I, BMI 30-34.9 04/16/2022 03/20/2023 documented as of this encounter (statuses as of 06/11/2023) [facility] History of Past illness Narrative* Problem Noted Date Diagnosed Date Resolved Date Obesity, Class I, BMI 30-34.9 04/16/2022 03/20/2023 documented as of this encounter (statuses as of 06/13/2023) [facility] History of Past illness Narrative* Problem Noted Date Diagnosed Date Resolved Date Obesity, Class I, BMI 30-34.9 04/16/2022 03/20/2023 documented as of this encounter (statuses as of 08/28/2023) [facility] History of Past illness Narrative* Problem Noted Date Diagnosed Date Resolved Date Obesity, Class I, BMI 30-34.9 04/16/2022 03/20/2023 documented as of this encounter (statuses as of 09/17/2023) [facility] History of Past illness Narrative* Problem Noted Date Diagnosed Date Resolved Date Obesity, Class I, BMI 30-34.9 04/16/2022 03/20/2023 documented as of this encounter (statuses as of 12/20/2023) [facility]-27-2022 Hospital Discharge instructions* Instructions* Shawnee Lechuga, TEJAL - 04/16/2022 HOLD NAPROXEN, NAPROSYN, ALEVE FOR 3 DAYS BEFORE SURGERY MAY TAKE TYLENOL NEEDED FOR PAIN MAY TAKE ALL OTHER MEDICATIONS PRESCRIBED ARRIVE 2 HOURS PRIOR TO SURGERY BE AT THE HOSPITAL AT 6:00 am Check in at registration using photo ID and insurance card Have a responsible adult that will be able to take you home and will be able to stay with you when you are home. NO FOOD AFTER MIDNIGHT THE NIGHT BEFORE SURGERY This includes candy, gum, and mints MAY have CLEAR LIQUIDS (WATER, APPLE JUICE, CRANBERRY JUICE, BLACK COFFEE, TEA, CARBONATED POP GATORADE) To drink until arrival time for surgery *(NOTE: IF YOU ARE A DIABETIC AVOID HIGH SUGAR BEVERAGES)* Wear loose comfortable clean clothing that you can go home in Leave all jewelry, contact lenses and valuables at home Only one visitor is permitted at this time Bring printed medication list with you Write the date and times of last dose DO NOT USE alcohol, recreational drugs or tobacco products for 24 hours before surgery Please write down any questions that you may have for your surgeon, anesthesiologist, Etc. * Attachments The following attachments cannot be sent through Care Everywhere. * Elective Bilateral Oophorectomy at Time of Hysterectomy: Deciding: General Info (Angolan) * Laparoscopic Hysterectomy: Post-op (Angolan) * Laparoscopic Hysterectomy: Pre-op (Angolan) * Salpingectomy: General Info (Angolan) documented in this encounterSUMMA Work Phone: [phone] Miscellaneous Notes* Telephone Encounter - Nancy Rome - 04/13/2022 3:58 PM EDT Called the patient several times LVM needs covid test on 04/14 documented [facility] Miscellaneous Notes* Telephone Encounter - Neli Buckley - 04/13/2022 9:00 AM EDT Kasia from chart [employer] [id number] LVM about PT needing to have covid test sharee do to will be staying overnight for surg w/Deborah on Saturday. FWD to surg pool. documented in this encounterPrem[facility] History and physical note * Coco Simms APRN.CNP - 04/12/2022 8:00 AM EDT HISTORY AND PHYSICAL EXAMINATION SERVICE DATE: 04/12/2022 SERVICE TIME: 08:00 AM PRIMARY CARE PHYSICIAN: Luis Hart MD REASON FOR VISIT: Josseline Willard is a 36 year old female who is scheduled for Procedure(s): DILATION ESOPHAGEAL (N/A) TRANSFUSION BLOOD (N/A) at the request of Dr. Yulissa Cabrera for routine H&P. My final recommendation will be communicated back to the requesting physician by way of shared medical record or letter. Subjective The patient has the following: There is no problem list on file for this patient. COVID-19 Immunization Status Postponed - COVID-19 VACCINE (1) Postponed until 02/21/2023 02/21/2022 Postponed until 02/21/2023 by Oscar Hernandez Ma (Declined at this time) CHIEF COMPLAINT: Dysphagia HPI: Patient complains of esophageal dysphagia for many years. She reports she has had multiple EGDs in the past. Last EGD November 2021. Today, she denies pain, rating 0 out of 10 on the numeric pain scale. She complains of occasional nausea, constipation and diarrhea. She denies abdominal pain orvomiting at this time. She reports she had a LAPS procedure in the past with minimal relief. Patient has history of GERD and IBS. After discussion with surgeon patient agreeable to surgical intervention. REVIEW OF SYSTEMS: General: No weight loss, malaise or fevers. Neurological: Negative for: headaches, seizures and strokes. Respiratory: Negative for: asthma, COPD, current cough, pneumonia within 6 weeks and obstructive sleep apnea. Cardiovascular: Negative for: arrhythmia, CAD, chest pain, CHF, DVT/PE, hyperlipidemia, hypertension and murmur/valvular heart disease. GI: See HPI. : No history of dysuria, frequency or incontinence, stones or chronic kidney disease. No difficulty urinating, nocturia > 1 time per night or hematuria. ICE GUARD SKATING RINK: +History of tubal ligation Endocrine: Negative for: diabetes mellitus and hypothyroidism. Hematology: No history of bleeding or clotting disorder. Patient is not taking anti-coagulation or platelet medications. No history of hematological symptoms or problems. Negative for: anemia and factor V Leiden. Oncology: No history of CA metastasis, chemo within 30 days, or radiotherapy within 90 days. No history of oncological symptoms or problems. Psych: Positive for: anxiety. Negative for: ADD and ADHD. Musculoskeletal: Negative for joint pain or swelling, back pain or muscle pain. Skin: Negative for lesions, rash and itching. 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 Goodson D AND C 2012 EGD 06/02/2020 Dr. Goodson EGD numerous EGD 11/09/2019 Dr. Goodson EGD WITH BIOPSY(S) 04/14/2018 Grade A reflux esophagitis, bile gastritis, neg H Pylori EGD WITH BIOPSY(S) 12/07/2021 Dr. Durham ESOPHAGEAL DILATION (AG) x2 ESOPHAGEAL MANOMETRY 02/14/2022 Dr. Cabrera EXTRACTION ERUPTED TOOTH 2010 wisdom teeth F EGD WITH DILATATION 02/23/2020 Dr. Goodson GASTRIC EMPTYING STUDY 09/28/2019 normal- [facility] HIATAL HERNIA REPAIR HX 12/24/2019 Dr. Goodson also did linx procedure at the same time KNEE SURGERY HX Right 06/2018 LAPAROSCOPIC CHOLECYSTECTOMY 12/04/2016 LAPS ESOPHGL SPHINCTER AUGMENT PROC PLACE DEVICE 12/24/2019 LINX placement; Dr. Goodson PAST SURGICAL HISTORY OF 05/2010 lipoma removed from back PAST SURGICAL HISTORY OF Left excision of basal cell carcinoma on cheek PAST SURGICAL HISTORY OF excision of Squamous cell carcinoma under nose TONSILLECTOMY HX 09/01/2020 TUBAL LIGATION HX 12/11/2010 FAMILY HISTORY Problem Relation Age of Onset No Known Problems Mother Hypertension Father Hyperlipidemia Father Leukemia Paternal Grandfather Ovarian cancer Paternal Aunt 30 Colon Cancer No Family History Social History Tobacco Use Smoking status: Never Smoker Smokeless tobacco: Never Used Vaping Use Vaping Use: Never used Substance Use Topics Alcohol use: Yes Comment: Rarely Drug use: Never Comment: denies medical THC card Prior to Admission medications as of 04/11/22 0853 Medication Sig Last Dose Taking sucralfate (CARAFATE) 1 gram tablet four times daily. pantoprazole DR (PROTONIX) 40 mg tablet Take 1 tablet by mouth once daily. polyethylene glycol 3350 (MIRALAX) 17 gram/dose powder Take 17 g by mouth once daily. Dissolve dosein 4 - 8 ounces of liquid and take as directed. melatonin 3 mg capsules Take by mouth daily at bedtime. No medication comments found. ALLERGIES Allergen Reactions Morphine Itching, Shortness of Breath Objective PHYSICAL EXAM: General: alert and oriented and healthy appearance. Pertinent negatives noted - not distressed. Skin: normal color, no rash or lesions. HEENT: EOM intact. Cardiovascular: regular rate and rhythm, normal S1 and S2, no rub, murmurs, or gallop. Respiratory: normal breath sounds, no wheezes or crackles. No chest wall deformity or tenderness. Abdomen: bowel sounds present. Extremities: no deformity, no edema or tenderness, no joint swelling or clubbing. Neurological: normal cognition and motor skills. Gait normal. No weakness or sensory deficit. PAIN ASSESSMENT: Pain Pain Level: 0 VITALS: BP 115/76 Pulse 71 Temp 96.8 Resp 16 Ht 5' 5 (1.65m) Wt 190 lb 3.2 oz (86.3kg) SpO2 100% LMP 03/30/2022 BMI 31.65 kg/(m^2). Diagnostic tests reviewed for today's visit: Lab Value Units Date High Low HB No results within date range. HCT No results within date range. WBC No results within date range. PLT No results within date range. NA No results within date range. K No results within date range. GLUC No results within date range. BUN No results within date range. CREAT No results within date range. PTSEC No results within date range. INR No results within date range. APTT No results within date range. ALT No results within date range. AST No results within date range. TBILI No results within date range. TSH No results within date range. Lab Value Units Date High Low HCGQT No results within date range. [facility]* no uni* 11/20/2021 HCG, BODY* No results within date range. Lab Value Units Date High Low ABORHD No results within date range. ABSCREEN No results within date range. No results found for: HBA1C No results found for this or any previous visit (from the past 8760 hour(s)). No results found for this or any previous visit (from the past 17590 hour(s)). Assessment No problem-specific Assessment & Plan notes found for this encounter. Luther Activity Status Index: METS: Climb a flight of stairs or walk up a hill (5.50 METs) DASI Score: 5.5 Patient denies any chest pain or undue shortness of breath with the above physical activity. Clinical Frailty Scale: 2. Well ARISCAT Score: Age: <=50 Preoperative SpO2: >=96% Respiratory infection in the last month: No Preoperative anemia: No Duration of surgery: 2-3 hrs Emergency procedure: No ARISCAT Score: ANESTHESIA FINDINGS: Intubation History: No history of difficult intubation Significant Anesthesia Considerations: potential postop nausea/vomiting Airway History: No history of difficult airway I - PHYSICAL EVALUATION DENTAL Dental findings: teeth intact. II - ANESTHESIA PLAN Anesthetic Plan: general Prepared for Surgery: CONSULTS: Patient does not require consults for optimization at this time Planned Anesthetic: general The Following Tests/Procedures Have Been Initiated: No orders of the defined types were placed in this encounter. Implantable Devices: None There is no known pertinent medical condition which may affect john-operative course Assessment/Plan Other dysphagia [R13.19] PLAN Planned Procedure: Procedure(s): DILATION ESOPHAGEAL (N/A) TRANSFUSION BLOOD (N/A) The Following Tests/Procedures Have Been Initiated: No labs/tests ordered in epic by surgeon. Instructions Given to Patient: Instructions located in the after visit summary. Patient given verbal and written preop instructions and voices comprehension and compliance. SIGNATURE: Coco Simms APRN.CNP PATIENT NAME: Josseline Willard DATE: April 10, 2022 TIME: 3:32 PM PAGER/CONTACT #: documented in this encounterPrem[facility] Instructions* Patient Instructions* Coco Simms APRN.CNP - 04/12/2022 8:00 AM EDT PATIENT PREOPERATIVE INSTRUCTIONS Your surgeon has scheduled you for your procedure at this surgery center: [facility] [phone] [address] [facility]. [place], [place] [address] Please enter through the main entrance, and proceed to the blue elevators. The surgery center is located left of the blue elevators. Please read below carefully for your personalized instructions. Arrival Time for Surgery: DATE: 04/16/2022 OR TIME: 3:50 pm CHECK IN TIME: 1:50 pm Please be aware that emergency situations arise, which may delay or change your surgical time. If this happens, we will notify you as soon as possible and regret any inconvenience. Dietary Restrictions: -Nothing to eat after midnight. Between midnight and four hours prior to your surgery time, you mayhave 12 ounces of clear liquids (Apple juice, carbonated beverages, Gatorade, black coffee or tea) unless your surgeon specifies otherwise. Blood Thinning Medications: - Stop NSAIDS (Ibuprofen, Advil, Aleve, Motrin, Celebrex, Mobic, Voltaren, Diclofenac, etc.) 7 daysbefore surgery, as directed by your surgeon. -You may take Tylenol or pain medications that do not contain Aspirin or NSAIDs. - Stop Vitamin E, fish oil, multivitamins, Marijuana, CBD oil and other over the counter herbals and dietary supplements 7 days before surgery. ?-This would not apply to cancer patients who are prescribed Marinol or any other prescription formon marijuana or CBD. -IF YOU TAKE ANY OF THE FOLLOWING BLOOD THINNERS, PLEASE CONTACT YOUR SURGEON AND THE PHYSICIAN WHOPRESCRIBES IT FOR YOU IN ORDER TO GET PERIOPERATIVE INSTRUCTIONS SOON POSSIBLE. BLOOD THINNERS: Aspirin , Coumadin, Plavix, Eliquis, Pradaxa, Xarelto, Lovenox, Brilinta, Effient, Savaysa, Arixtra, etc Medications: Approved medications to take the morning of surgery with a sip of water: BP, Heart, thyroid, psych,seizure, and pain medications excluding NSAIDS. Use inhalers as prescribed. Please bring inhalers. Medications to be taken with small amount of fluid on the morning of surgery: If these are morning medications, go ahead and take: Approved medications to take the morning of surgery with a sip of water: BP, Heart, thyroid, psych, seizure, and pain medications excluding NSAIDS. Use inhalers as prescribed. Please bring inhalers. Please follow up with the provider that manages your diabetes and how to prepare you for surgery. -If you are taking the following medications for Type 2 diabetes: Canagliflozin (INVOKANA), dapagliflozin (FARXIGA), and empagliflozin (JARDIANCE) should each be discontinued at least 3 days before scheduled surgery. Ertugliflozin (STEGLATRO) should be discontinued at least four days before scheduled surgery. If you start any new medications after today's visit, please contact the surgeon's office. Important Reminders: - If you use CPAP/BIPAP, bring the machine with you to the surgery center. - If you are prescribed inhalers for breathing, continue using them AND bring them to the surgery center. - Candy, mints, gum and tobacco products are NOT permitted the morning of surgery. - Hearing aids, dentures and glasses may be worn the morning of surgery. - NO jewelry, body piercings, makeup, hairpins or contacts are to be worn the day of surgery. -Oral hygiene and a shower or bath is required the evening before or the morning of surgery. Use the [employer] body wash supplied to you along with the instruction. - NO lotion, creams, powders or deodorants on the skin the day of surgery -Wear loose, comfortable clothing that will accommodate bandages. -Your length of stay will be determined by your surgeon - You will need to have someone else (Family or friend) drive you home once discharged from the hospital. You are not allowed to drive yourself home after surgery. - YOU MUST HAVE A RESPONSIBLE BRIDGE ATTACHER TAKE YOU HOME. A HUMAN RESOURCES PARTNER, CAB OR UBER BRIDGE ATTACHER CANNOT BE MADEA RESPONSIBLE BRIDGE ATTACHER. - We recommend that a responsible person stays with you overnight to take care of you. - You cannot stay in a hotel alone after outpatient surgery. You will not be permitted to have yoursurgery, if you do not have someone to take care of you. - If you have a stimulator, implant or pump that requires a remote please bring the remote with youday of surgery. Given COVID 19 pandemic, two visitor is allowed to be in the hospital. You will enter at the main entrance of the hospital and [facility], where you will provide points ofcontact. [facility] current visitor policy: may bring two visitor with you morning of surgery, they must wear a mask at all times while in the hospital, and during surgery they may be asked to wait in the car, and the surgeon will call them with updates. You will be required to have COVID-19 testing prior to surgery. Your surgeon's office should order this for you. You will receive a call from the scheduling department of [facility]. If you have not received a testing time and it is 4 days prior to surgery. Please call your surgeon. If you develop symptoms such as a fever, cold, or flu, or have other changes to your health within TWO DAYS of scheduled surgery or the morning of surgery, please contact the surgery center above. You should have a 72-hour period between getting your COVID vaccine and date of surgery. Personal Belongings: - Leave ALL valuables and money at home or with family members. - You will need a form of ID and insurance card to check in the morning of surgery. - You will have to wear a hospital gown during your stay but if you wish to bring undergarments forafter surgery you may. testing Anesthesia requires testing on all females under the age of 55 without history of tubal ligation or hysterectomy. Coco Simms APRN.CNP 04/12/22 documented in this encounterPrem[facility]06-16-2022 Miscellaneous Notes* Telephone Encounter - Neli Buckley - 04/05/2022 11:07 AM EDT PT RTN missed call. She explain doesn't have message only office number. Per prv notes show VM box is full. documented in this encounterPrem[facility]06-16-2022 Miscellaneous Notes* Telephone Encounter - Nancy Rome - 04/05/2022 8:22 AM EDT Tried to call patient to reschedule her Dilation in te OR can not leave a voicemail it is full documented in this encounterPrem[facility]06-[facility]22 History of Present illness Narrative* Yulissa Cabrera MD - 04/04/2022 3:31 PM EDT SURGICAL SERVICES HISTORY AND PHYSICAL EXAMINATION SERVICE DATE: 04/04/2022 SERVICE TIME: 3:31 PM PRIMARY CARE PHYSICIAN: Luis Hart MD SUBJECTIVE CHIEF COMPLAINT: Reflux and pain HISTORY OF PRESENT ILLNESS: Ms. Willard is a 36 year old female with a PMH of anxiety, GERD with reflux esophagitis status post hiatal hernia repair with LINX (Dr. Goodson 12/2019), hx of basal cell carcinoma, IBS who presents for follow up after recent additional testing. Today she endorses no changes in her health or her symptoms or medications. We reviewed the recent testing Per my previous note: Josesline states that she has had stomach issues for many years, since 2008, for which she initially treated with extensive dietary changes and eventually underwent laparoscopiccholecystectomy without change in symptoms. She then began work up with Dr. Allan and Dr. Goodson and eventually underwent hiatal hernia repair with Linx device placement in 12/2019. Since surgery she continues with the same constant epigastric pain and nausea that she had prior to surgery. She endorsesfood stacking and the sensation of food sitting in her throat/getting stuck and also reports regurgitation of undigested food - this occurs with nearly every meal. She denies emesis since the Linx (em esis was common for her prior to surgery). She also endorses esophageal pain and substernal burningwhich feels similar to the heartburn she experienced prior to surgery. Due to the aforementioned symptoms, since LINX placement she has undergone at least [address] Goodson. She states that she had no relief of symptoms with any of these dilations. Since undergoing LINX placement she has also undergone further extensive testing and eventually underwent tonsillectomy and allergy testing due to the issues with difficulty swallowing. She continues with no change in symptoms. Social: endorses rare etoh use; denies use of tobacco and illicit drug use Workup: - EGD (Marva; 12/07/21): normal EGD - Pathology: Benign squamous mucosa with focal mild chronic inflammation - negative for EoE - CT Abd/pelvis (12/21/21): no acute abd/pelvic process. LINX device appears in proper placement on my assessment - MBS (11/21/21): WNL - EGD (06/02/20): report not available in Care Everywhere - UGI (02/22/20): mild narrowing of distal esophagus as traverses the Linx device. Delay in esophageal emptying. Remaining esophagus is WNL. No GERD. - Manometry: EGJOO secondary to LINX. IRP 19.4 mmHg, 40% fragmented swallows - Esophagram (01/31/22): Status post LINX procedure with mild delay in passage of oral contrast through this region and associated slight dilatation of the distal esophagus. 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 Goodson D AND C EGD 06/02/2020 Dr. Goodson EGD numerous EGD 11/09/2019 Dr. Goodson EGD WITH BIOPSY(S) 04/14/2018 Grade A reflux esophagitis, bile gastritis, neg H Pylori EGD WITH BIOPSY(S) 12/07/2021 Dr. Durham ESOPHAGEAL DILATION (AG) x2 ESOPHAGEAL MANOMETRY 02/14/2022 Dr. Cabrera EXTRACTION ERUPTED TOOTH wisdom teeth F EGD WITH DILATATION 02/23/2020 Dr. Goodson GASTRIC EMPTYING STUDY 09/28/2019 normal- [facility] HIATAL HERNIA REPAIR HX 12/24/2019 Dr. Goodson KNEE SURGERY HX Right 06/2018 KNEE SURGERY HX Right LAPAROSCOPIC CHOLECYSTECTOMY 12/04/2016 LAPS ESOPHGL SPHINCTER AUGMENT PROC PLACE DEVICE 12/24/2019 LINX placement; Dr. Goodson PAST SURGICAL HISTORY OF 05/2010 lipoma removed PAST SURGICAL HISTORY OF Left excision of basal cell carcinoma on cheek PAST SURGICAL HISTORY OF excision of Squamous cell carcinoma under nose TONSILLECTOMY HX 09/01/2020 TUBAL LIGATION HX 12/11/2010 FAMILY HISTORY: FAMILY HISTORY Problem Relation Age of Onset No Known Problems Mother Hypertension Father Hyperlipidemia Father Leukemia Paternal Grandfather Ovarian cancer Paternal Aunt 30 Colon Cancer No Family History SOCIAL HISTORY: Social History Tobacco Use Smoking status: Never Smoker Smokeless tobacco: Never Used Vaping Use Vaping Use: Never used Substance Use Topics Alcohol use: Yes Comment: Rarely Drug use: Never MEDICATIONS: Current Outpatient Medications Medication Sig pantoprazole DR (PROTONIX) 40 mg tablet Take 1 tablet by mouth once daily. polyethylene glycol 3350 (MIRALAX) 17 gram/dose powder Take 17 g by mouth once daily. Dissolve dosein 4 - 8 ounces of liquid and take as directed. melatonin 3 mg capsules Take by mouth daily at bedtime. sucralfate (CARAFATE) 1 gram tablet No current facility-administered medications for this visit. ALLERGIES: ALLERGIES Allergen Reactions Morphine Itching, Shortness of Breath COMPLETE REVIEW OF SYSTEMS: Review of Systems Constitutional: Negative for chills, diaphoresis, fever and malaise/fatigue. HENT: Negative for congestion, hearing loss, nosebleeds, sinus pain, sore throat and tinnitus. Eyes: Negative for blurred vision, double vision, pain and redness. Respiratory: Negative for cough, hemoptysis, sputum production, shortness of breath and wheezing. Cardiovascular: Negative for chest pain, palpitations, orthopnea, leg swelling and PND. Gastrointestinal: Positive for abdominal pain, heartburn and nausea. Negative for blood in stool, constipation, diarrhea and vomiting. Genitourinary: Negative for dysuria, frequency, hematuria and urgency. Musculoskeletal: Negative for back pain, falls, joint pain, myalgias and neck pain. Skin: Negative for itching and rash. Neurological: Negative for dizziness, speech change, focal weakness, seizures, loss of consciousness, weakness and headaches. Endo/Heme/Allergies: Does not bruise/bleed easily. Psychiatric/Behavioral: Negative for depression, hallucinations, memory loss, substance abuse and suicidal ideas. The patient is nervous/anxious. The patient does not have insomnia. OBJECTIVE PHYSICAL EXAM: BP 120/78 Pulse 90 Ht 5' 5 (1.65m) Wt 190 lb (86.2kg) LMP 03/30/2018 BMI 31.62 kg/(m^2). Physical Exam Vitals reviewed. Constitutional: Appearance: Normal appearance. HENT: Head: Normocephalic. Eyes: Extraocular Movements: Extraocular movements intact. Conjunctiva/sclera: Conjunctivae normal. Pupils: Pupils are equal, round, and reactive to light. Cardiovascular: Rate and Rhythm: Normal rate. Pulmonary: Effort: Pulmonary effort is normal. No respiratory distress. Skin: General: Skin is warm and dry. Coloration: Skin is not jaundiced or pale. Neurological: General: No focal deficit present. Mental Status: She is alert and oriented to person, place, and time. Psychiatric: Mood and Affect: Mood normal. Behavior: Behavior normal. DATA: Diagnostic tests reviewed for today's visit: EMR reviewed Plan ASSESSMENT AND PLAN Josseline Willard is a 36 year old female with a PMH as noted above who presents with continued dysphagia. 1. Esophageal dysphagia - ICD9: 787.29, ICD10: R13.19 (primary diagnosis) - We reviewed her continued symptoms and her recent workup of esophagram and manometry. We again discussed the likelihood of scar tissue buildup surrounding the device as being the primary cause of her symptoms - she does admit that after placement she did not eat a lot of food and not many solids.We reviewed my recommendation going forward of starting with initial dilation with the pneumatic/achalasia balloon dilation. We discussed the potential risks and complications associated with dilation - primarily bleeding and perforation. Her questions and concerns were addressed. - She would like to get this addressed JORGE, so will see if I have room on my schedule this upcoming week. - We discussed next steps as well. I hope that with larger balloon dilation her symptoms will improve somewhat and perhaps enough to not have to proceed to removal. If her symptoms do not improve, I will recommend removal of the LINX device and then wait a few months to see if esophageal dysphagia improves and then discuss repeat manometry and/or esophagram and then proceed with Eladia or Toupet fundoplication. - Has a uterine leioma and is undergoing MEGHAN at [facility] on May 01 2. Heartburn - ICD9: 787.1, ICD10: R12 - Continue current management 3. Class 1 obesity due to excess calories with serious comorbidity and body mass index (BMI) of 31.0 to 31.9 in adult - ICD9: 278.00, V85.31, ICD10: E66.09, Z68.31 - Continue working on weight loss Medical Decision Making: Problems: Moderate: 2+ stable chronic illnesses Data: Unique test result(s) reviewed: 2 Discussed management or test w/ external physician/QHCP/source Risk: Moderate: Decision on minor surgery w/ risk factors Medical Decision Making Level: 4 - Moderate SIGNATURE: Yulissa Cabrera MD PATIENT NAME: Josseline Willard DATE: April 04, 2022 TIME: 3:31 PM PAGER/CONTACT #: [phone] documented in this encounterPrem[facility] History of Present illness Narrative* Manolo Blanton MD - 02/22/2022 11:30 AM EDT Thank you for requesting an Endocrinology E-Consult for your 36 year old female patient, Josseline Willard for evaluation/treatment of dysphagia and abnormal thyroid ultrasound. Your clinical question: Thyroid ultrasound ordered by GI due to dysphagia and GI work-up has been unremarkable. Patient also reports fatigue and inability to lose weight. Comments and recommendations: Thyroid gland is of normal size, not contributing to dysphagia. Further, per esophagram January,, dysphagia is unrelated to thyroid. Heterogeneous appearance of thyroid gland with no discrete nodule were described per ultrasound Nov, 2021. The heterogeneous appearance is suggestive of inflammation and the risk of developing hypothyroidism (and less commonly hyperthyroidism) in the future. Patient is euthyroid per TSH from Oct, 2021 or at minimum primary hypothyroidism was ruled out. . Fatigue and inability to lose weight are unrelated. TSH should be monitored at least yearly and as needed based on the changes in clinical symptoms. If there is a reason to suspect secondary hypothyroidism, please obtain TSH and free T4. Of note, patient was able to lose about 10 lb over the past 2-3 years. No appointment necessary and iIf she desires further weight loss consider a consultation with endocrine weight management. Time: 11 minutes. Please don't hesitate to contact us if you have further questions. Sincerely, Manolo Blanton MD, KHADAR documented in this encounterPrem[facility]05-04-[facility]22 History of Present illness Narrative* Dariela Older, OPERATIONS ADMINISTRATOR.FINANCIAL MANAGER - 02/21/2022 4:55 PM EDT CC: Patient presents with: Establish Care: asking for referral re: thyroid HPI Josseline Willard is a 36 year old female who presents today for above. Previous PCP Dr. Thomas Patient requesting referral to endocrinology due to abnormal thyroid ultrasound results. This was ordered by GI due to her issues with dysphagia and food getting stuck in her throat that they have not been able to identify the cause of. Other symptoms that has her concerned about a possible thyroidissue include: fatigue, inability to lose weight, cold intolerance. Dysphagia: history of GERD. Recent GI testing includes modified barium swallow, esophagram and esophageal manometry was just initiated. She is taking Protonix and Carafate as prescribed. Exercise: sporadic. Diet: Watches diet for salt (salty snacks, added salt, processed frozen/canned foods), sugary/sweetsnacks, unhealthy fats: Yes REVIEW OF SYSTEMS General: no fevers, no chills and no night sweats HEENT: no frequent or significant headaches, no changes in hearing, no visual changes Respiratory: no cough, no wheezing, no shortness of breath Cardiovascular: no chest pain, no chest pressure, no palpitations and no swelling GI: See HPI : Negative for dysuria, frequency, incontinence and nocturia >1 ICE GUARD SKATING RINK: periods are very heavy and very painful. She is established with ICE GUARD SKATING RINK. Recent ultrasound showing suspicious leiomyoma. Considering partial hysterectomy. 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 Goodson D AND C EGD 06/02/2020 Dr. Goodson EGD numerous EGD 11/09/2019 Dr. Goodson EGD WITH BIOPSY(S) 04/14/2018 Grade A reflux esophagitis, bile gastritis, neg H Pylori EGD WITH BIOPSY(S) 12/07/2021 Dr. Durham ESOPHAGEAL DILATION (AG) x2 ESOPHAGEAL MANOMETRY 02/14/2022 Dr. Cabrera EXTRACTION ERUPTED TOOTH wisdom teeth F EGD WITH DILATATION 02/23/2020 Dr. Goodson GASTRIC EMPTYING STUDY 09/28/2019 normal- [facility] HIATAL HERNIA REPAIR HX 12/24/2019 Dr. Goodson KNEE SURGERY HX Right 06/2018 KNEE SURGERY HX Right LAPAROSCOPIC CHOLECYSTECTOMY 12/04/2016 LAPS ESOPHGL SPHINCTER AUGMENT PROC PLACE DEVICE 12/24/2019 LINX placement; Dr. Goodson PAST SURGICAL HISTORY OF 05/2010 lipoma removed PAST SURGICAL HISTORY OF Left excision of basal cell carcinoma on cheek PAST SURGICAL HISTORY OF excision of Squamous cell carcinoma under nose TONSILLECTOMY HX 09/01/2020 TUBAL LIGATION HX 12/11/2010 ALLERGIES Morphine MEDICATIONS sucralfate (CARAFATE) [address] (PROTONIX) 40 mg tablet Take 1 tablet by mouth once daily. polyethylene glycol 3350 (MIRALAX) 17 gram/dose powder Take 17 g by mouth once daily. Dissolve dosein 4 - 8 ounces of liquid and take as directed. melatonin 3 mg capsules Take by mouth daily at bedtime. FAMILY HISTORY Problem Relation Age of Onset No Known Problems Mother Hypertension Father Hyperlipidemia Father Leukemia Paternal Grandfather Ovarian cancer Paternal Aunt 30 Colon Cancer No Family History Social History Tobacco Use Smoking status: Never Smoker Smokeless tobacco: Never Used Vaping Use Vaping Use: Never used Substance Use Topics Alcohol use: Yes Comment: Rarely Drug use: Never PHYSICAL EXAM BP 114/74 Pulse 85 Resp 16 Ht 165.1 cm (5' 5) Wt 83 kg (183 lb) LMP 03/30/2018 SpO2 100% BMI 30.45 kg/m General Appearance: well appearing, in no acute distress, alert Pysch: mood and affect broad and appropriate Skin: Skin color, texture, turgor normal for age; Eyes: conjunctiva pink and moist, no icterus, sclera white, non-injected Neck: Thyroid normal size and symmetric without palpable nodules, Neck supple, No adenopathy Lymph nodes: No supraclavicular lymphadenopathy Lungs: Lungs clear to auscultation. No wheezing, rhonchi, rales. Heart: RRR without murmur, gallop, or rubs. No ectopy Ext: no edema in LE bilaterally, good distal pulses Health maintenance reviewed with patient: DEPRESSION SCREENING Never done HPV TESTING Never done PAP TESTING due on 11/19/2018 DTAP,TDAP,TD(1 - Tdap) due on 02/21/2023 COVID-19 VACCINE(1) due on 02/21/2023 INFLUENZA(Season Ended) due on 06/21/2022 HEPATITIS C SCREENING Completed HIV SCREENING Completed MENINGOCOCCAL CONJUGATE Aged Out DATA REVIEWED: Most recent labs and imaging results. ASSESSMENT/PLAN: 1. Encounter for medical examination to establish care - ICD9: V70.9, ICD10: Z00.00 (primary diagnosis) - Counseled on healthy diet and regular exercise - Calcium intake with supplements or by diet of 1000 mg/day for under 50, 1200- 1500 mg/day for 50+ - Discussed need and benefit for weight loss. BMI 30.45 kg/(m^2) - Depression screening tool completed and reviewed with patient. Based on score and interview, patient is not at risk for depression and recommended no further intervention at this time. - Follow up for annual exam in one year 2. Dysphagia, unspecified type - ICD9: 787.20, ICD10: R13.10 GI work-up this far has been unrevealing. Follow-up with GI as advised. Continue with current medications 3. Abnormal thyroid ultrasound - ICD9: 794.5, ICD10: R93.89 Reviewed thyroid ultrasound, non specific findings. TSH in October was normal. Patient requesting referral to endocrinology, will do e-consult first and proceed from there. Prescription instructions reviewed with patient as applicable. Potential red flag symptoms discussed with the patient. Reviewed appropriate action plan to take if red flag symptoms occur. Patient agreeable to treatment plan. Dariela Dent APRN.CNP documented in this encounterPrem[facility]04-04-[facility]22 Miscellaneous Notes* Telephone Encounter - Elizabeth Kiran - 01/22/2022 10:57 AM EDT Attempted to contact patient to set up manometry, phone rang busy. Elizabeth Kiran Early Childhood Education Specialist Bariatric Dept. P: [phone] Ext [phone] documented in this encounterPrem[facility]04-01-[facility]22 History of Present illness Narrative* Yulissa Cabrera MD - 01/19/2022 4:05 PM EDT SURGICAL SERVICES HISTORY AND PHYSICAL EXAMINATION SERVICE DATE: 01/19/2022 SERVICE TIME: 4:06 PM PRIMARY CARE PHYSICIAN: Leonie Estrella MD SUBJECTIVE CHIEF COMPLAINT: Reflux and pain HISTORY OF PRESENT ILLNESS: Ms. Willard is a 36 year old female with a PMH of anxiety, GERD with reflux esophagitis status post hiatal hernia repair with LINX (Dr. Goodson 12/2019), hx of basal cell carcinoma, IBS, presents for evaluation of reflux and epigastric pain. Josseline states that she has had stomach issues for many years, since 2008, for which she initially treated with extensive dietary changes and eventually underwent laparoscopic cholecystectomy without change in symptoms. She then began work up with Dr. Allan and Dr. Goodson and eventually underwent hiatal hernia repair with Linx device placement in 12/2019. Since surgery she continues with the same constant epigastric pain and nausea that she had prior to surgery. She endorses food stacking and thesensation of food sitting in her throat/getting stuck and also reports regurgitation of undigested food - this occurs with nearly every meal. She denies emesis since the Linx (emesis was common for her prior to surgery). She also endorses esophageal pain and substernal burning which feels similar to the heartburn she experienced prior to surgery. Due to the aforementioned symptoms, since LINX placement she has undergone at least [address] Goodson. She states that she had no relief of symptoms with any of these dilations. Since undergoing LINX placement she has also undergone further extensive testing and eventually underwent tonsillectomy and allergy testing due to the issues with difficulty swallowing. She continues with no change in symptoms. Social: endorses rare etoh use; denies use of tobacco and illicit drug use Workup: - EGD (Marva; 12/07/21): normal EGD - Pathology: Benign squamous mucosa with focal mild chronic inflammation - negative for EoE - CT Abd/pelvis (12/21/21): no acute abd/pelvic process. LINX device appears in proper placement on my assessment - MBS (11/21/21): WNL - EGD (06/02/20): report not available in Care Everywhere - UGI (02/22/20): mild narrowing of distal esophagus as traverses the Linx device. Delay in esophageal emptying. Remaining esophagus is WNL. No GERD. 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 Goodson D AND C EGD 06/02/2020 Dr. Goodson EGD numerous EGD 11/09/2019 Dr. Goodson EGD WITH BIOPSY(S) 04/14/2018 Grade A reflux esophagitis, bile gastritis, neg H Pylori EGD WITH BIOPSY(S) 12/07/2021 Dr. Durham ESOPHAGEAL DILATION (AG) x2 EXTRACTION ERUPTED TOOTH wisdom teeth F EGD WITH DILATATION 02/23/2020 Dr. Goodson GASTRIC EMPTYING STUDY 09/28/2019 normal- [facility] HIATAL HERNIA REPAIR HX 12/24/2019 Dr. Goodson KNEE SURGERY HX Right 06/2018 KNEE SURGERY HX Right LAPAROSCOPIC CHOLECYSTECTOMY 12/04/2016 LAPS ESOPHGL SPHINCTER AUGMENT PROC PLACE DEVICE 12/24/2019 LINX placement; Dr. Goodson PAST SURGICAL HISTORY OF 05/2010 lipoma removed PAST SURGICAL HISTORY OF Left excision of basal cell carcinoma on cheek PAST SURGICAL HISTORY OF excision of Squamous cell carcinoma under nose TONSILLECTOMY HX 09/01/2020 TUBAL LIGATION HX 12/11/2010 FAMILY HISTORY: FAMILY HISTORY Problem Relation Age of Onset No Known Problems Mother Hypertension Father Hyperlipidemia Father Leukemia Paternal Grandfather Ovarian cancer Paternal Aunt 30 Colon Cancer No Family History SOCIAL HISTORY: Social History Tobacco Use Smoking status: Never Smoker Smokeless tobacco: Never Used Vaping Use Vaping Use: Never used Substance Use Topics Alcohol use: Yes Comment: Rarely Drug use: Never MEDICATIONS: Current Outpatient Medications Medication Sig pantoprazole DR (PROTONIX) 40 mg tablet Take 1 tablet by mouth once daily. polyethylene glycol 3350 (MIRALAX) 17 gram/dose powder Take 17 g by mouth once daily. Dissolve dosein 4 - 8 ounces of liquid and take as directed. melatonin 3 mg capsules Take by mouth daily at bedtime. No current facility-administered medications for this visit. ALLERGIES: ALLERGIES Allergen Reactions Morphine Itching, Shortness of Breath COMPLETE REVIEW OF SYSTEMS: Review of Systems Constitutional: Negative for chills, diaphoresis, fever and malaise/fatigue. HENT: Negative for congestion, hearing loss, nosebleeds, sinus pain, sore throat and tinnitus. Eyes: Negative for blurred vision, double vision, pain and redness. Respiratory: Negative for cough, hemoptysis, sputum production, shortness of breath and wheezing. Cardiovascular: Negative for chest pain, palpitations, orthopnea, leg swelling and PND. Gastrointestinal: Positive for abdominal pain, heartburn and nausea. Negative for blood in stool, constipation, diarrhea and vomiting. Genitourinary: Negative for dysuria, frequency, hematuria and urgency. Musculoskeletal: Negative for back pain, falls, joint pain, myalgias and neck pain. Skin: Negative for itching and rash. Neurological: Negative for dizziness, speech change, focal weakness, seizures, loss of consciousness, weakness and headaches. Endo/Heme/Allergies: Does not bruise/bleed easily. Psychiatric/Behavioral: Negative for depression, hallucinations, memory loss, substance abuse and suicidal ideas. The patient is nervous/anxious. The patient does not have insomnia. OBJECTIVE PHYSICAL EXAM: BP 116/78 Pulse 87 Resp 16 Ht 5' 5 (1.65m) Wt 184 lb (83.5kg) SpO2 99% LMP 03/30/2018 BMI 30.62 kg/(m^2). Physical Exam Vitals reviewed. Constitutional: Appearance: Normal appearance. She is obese. HENT: Head: Normocephalic and atraumatic. Eyes: General: No scleral icterus. Extraocular Movements: Extraocular movements intact. Conjunctiva/sclera: Conjunctivae normal. Pupils: Pupils are equal, round, and reactive to light. Cardiovascular: Rate and Rhythm: Normal rate. Pulmonary: Effort: Pulmonary effort is normal. No respiratory distress. Skin: General: Skin is warm and dry. Coloration: Skin is not jaundiced or pale. Neurological: General: No focal deficit present. Mental Status: She is alert and oriented to person, place, and time. Psychiatric: Behavior: Behavior normal. Comments: Patient appeared somewhat anxious and tearful during the visit due to ongoing symptoms DATA: Diagnostic tests reviewed for today's visit: EMR and Care Everywhere Plan ASSESSMENT AND PLAN Josseline Willard is a 36 year old female with a PMH as noted above who presents with dysphagia, epigastric pain, and nausea. 1. Esophageal dysphagia - ICD9: 787.29, ICD10: R13.19 (primary diagnosis) - Today in clinic we discussed her symptoms, previous procedures and workup. At this point I am unable to access the actual operative report from the three dilations she had done following LINX placement. It is most likely the case that her dysphagia is secondary to scar tissue build up around the LINX device. She states that she received no benefit at all from the previous dilations, which points towards a functional cause. I also do not have access to the pre- operative manometry to determine if she had any baseline esophageal dysmotility that could have been exacerbated by the LINX - Will obtain previously performed manometry, all pre-surgical workup, and operative notes from endoscopic pneumatic dilations. Will also obtain repeat manometry and obtain esophagram. After all of these are complete will follow up in clinic and discuss options going forward - repeat pneumatic dilation versus removal of LINX device (last resort) with Eladia or Toupet fundoplication. - XR ESOPHAGRAM - MANOMETRY ESOPHAGEAL FUNCTION W/IMPEDANCE 2. History of repair of hiatal hernia - ICD9: V15.29, ICD10: Z98.890, Z87.19 - As above 3. Heartburn - ICD9: 787.1, ICD10: R12 - As above. Continue current medical and dietary management - Consider GES if all other workup is WNL due to history of nausea, epigastric pain, and emesis. 4. Class 1 obesity due to excess calories with serious comorbidity and body mass index (BMI) of 30.0 to 30.9 in adult - ICD9: 278.00, V85.30, ICD10: E66.09, Z68.30 - Despite restrictive diet she is unable to lose weight. Current weight is stable for her Medical Decision Making: Problems: Moderate: New problem with uncertain prognosis Data: Unique source(s) for external note(s) reviewed: 3+ Unique test result(s) reviewed: 3+ Unique test(s) ordered: 2 Discussed management or test w/ external physician/QHCP/source Risk: Low: Low risk from testing/treatment Medical Decision Making Level: 4 - Moderate SIGNATURE: Yulissa Cabrera MD PATIENT NAME: Josseline Willard DATE: January 19, 2022 TIME: 4:06 PM PAGER/CONTACT #: [phone] documented in this encounterPremier [facility]09[facility] Hospital Discharge instructions* Instructions* Lindsey Calderón MD - 07/14/2021 Return to Emergency Room immediately if pain changes or worsens in any way. Return if fever greaterthan 100.5, vomiting and unable to keep medications down or worse in any other way. * Attachments The following attachments cannot be sent through Care Everywhere. * Flank Pain (Angolan) documented in this encounterSUMMA Work Phone: [phone] 326-338002-03-2020 Hospital Discharge instructions* Instructions* Mikki Green RN - 11/23/2019 You may experience some minor side effects following your procedure. Minor complications of esophageal manometry include: Nosebleed Discomfort in the nose and throat Stuffy/runny nose Severe complications from this procedure are rare. If you experience any signs of severe complications, please alert your physician and/or seek emergency medical care. Severe complications of esophageal manometry include: Chest pain Shortness of breath Irregular heart rhythm Aspiration (inhaling stomach contents into the lungs) Fever great than 100.4 F Perforation or tearing of the esophagus Perforation or tearing of a lung (pneumothorax) *Please continue taking your medications as prescribed and resume your previous diet unless instructed otherwise by your physician. *If a new medication has been prescribed, you will either receive a paper prescription or have it sent electronically to your pharmacy. This will be discussed with you by your physician and/or your nurse. [facility] Work [facility]: [facility] note* Diagnosis Flank pain- Primary Abdominal pain, unspecified site documented in this encounter [facility] Work Phone: Evaluation note* Diagnosis Esophageal dysphagia- Primary Dysphagia, pharyngoesophageal phase History of repair of hiatal hernia Heartburn Class 1 obesity due to excess calories with serious comorbidity and body mass index (BMI) of 30.0 to 30.9 in adult [facility] Diagnosis Esophageal dysphagia- Primary Dysphagia, pharyngoesophageal phase Esophageal dysphagia Dysphagia, pharyngoesophageal phase documented [facility]* Diagnosis Pelvic pain in female Unspecified symptom associated with female genital organs documented in this encounter [facility] Work Phone: Evaluation note* Diagnosis Esophageal dysphagia Dysphagia, pharyngoesophageal phase Esophageal dysphagia Dysphagia, pharyngoesophageal phase [facility] this [facility]* Diagnosis Encounter for medical examination to establish care- Primary Dysphagia, unspecified type Abnormal thyroid ultrasound Nonspecific abnormal results of thyroid function study documented in this encounter [facility] note* Diagnosis Disorder of thyroid- Primary Unspecified disorder of thyroid Dysphagia, unspecified type documented in this encounter [facility] note* Diagnosis Esophageal dysphagia- Primary Dysphagia, pharyngoesophageal phase Heartburn Class 1 obesity due to excess calories with serious comorbidity and body mass index (BMI) of 31.0 to 31.9 in adult [facility] Diagnosis Other dysphagia- Primary [facility] Diagnosis Preop testing Preoperative examination, unspecified Other dysphagia Other dysphagia documented in this encounter [facility] note* Diagnosis Hiatal hernia- Primary Diaphragmatic hernia without mention of obstruction or gangrene Other dysphagia documented in this encounter [facility] note* Diagnosis S/P hysterectomy- Primary Acquired absence of both cervix and uterus documented in this encounter [facility] Work Phone: Evaluation note* Diagnosis Esophageal dysphagia- Primary Dysphagia, pharyngoesophageal phase Heartburn Class 1 obesity due to excess calories without serious comorbidity with body mass index (BMI) of 30.0 to 30.9 in adult [facility] Diagnosis Other dysphagia- Primary documented [facility]* Diagnosis Pre-op exam- Primary Preoperative examination, unspecified Gastroesophageal reflux disease with esophagitis, unspecified whether hemorrhage Seasonal allergies Allergic rhinitis, cause unspecified Other dysphagia [facility] Diagnosis Elevated LFTs- Primary Other abnormal blood chemistry Other dysphagia [facility] this [facility]* Diagnosis Right hip pain- Primary Pain in joint, pelvic region and thigh Abnormal thyroid ultrasound Nonspecific abnormal results of thyroid function study documented in this encounter [facility] note* Diagnosis Dysplasia of both hips- Primary Right hip pain Pain in joint, pelvic region and thigh documented in this encounter [facility] note* Diagnosis Gastroesophageal reflux disease, unspecified whether esophagitis present- Primary Esophageal dysphagia Dysphagia, pharyngoesophageal phase Class 1 obesity due to excess calories without serious comorbidity with body mass index (BMI) of 30.0 to 30.9 in adult Esophageal dysphagia Dysphagia, pharyngoesophageal phase documented in this encounter [facility] note* Diagnosis Gastroesophageal reflux disease, unspecified whether esophagitis present Esophageal dysphagia Dysphagia, pharyngoesophageal phase Esophageal dysphagia Dysphagia, pharyngoesophageal phase documented in this encounter [facility] note* Diagnosis Right hip pain- Primary Pain in joint, pelvic region and thigh Esophageal dysphagia Dysphagia, pharyngoesophageal phase documented [facility]* Diagnosis Macromastia- Primary Hypertrophy of breast Upper back pain Neck pain Cervicalgia Intertrigo Other specified erythematous condition Esophageal dysphagia Dysphagia, pharyngoesophageal phase documented in this encounter [facility] note* Diagnosis Right hip pain Pain in joint, pelvic region and thigh Esophageal dysphagia Dysphagia, pharyngoesophageal phase documented [facility] this [facility]* Diagnosis Gastroesophageal reflux disease, unspecified whether esophagitis present documented in this encounter [facility] note* Diagnosis Macromastia- Primary Hypertrophy of breast documented in this encounter [facility] note* Diagnosis Gastroesophageal reflux disease without esophagitis- Primary Esophageal reflux Esophageal dysphagia Dysphagia, pharyngoesophageal phase Esophageal spasm Dyskinesia of esophagus Class 1 obesity with serious comorbidity and body mass index (BMI) of 30.0 to 30.9 in adult, unspecified obesity type Gastroesophageal reflux disease, unspecified whether esophagitis present documented in this encounter [facility] note* Diagnosis Gastroesophageal reflux disease, unspecified whether esophagitis present- Primary Gastroesophageal reflux disease, unspecified whether esophagitis present documented in this encounter [facility] note* Diagnosis Pre-op evaluation- Primary Preoperative examination, unspecified [facility]* Diagnosis Class 1 obesity with serious comorbidity and body mass index (BMI) of 30.0 to 30.9 in adult, unspecified obesity type- Primary Gastroesophageal reflux disease without esophagitis Esophageal reflux Paraesophageal hernia Diaphragmatic hernia without mention of obstruction or gangrene Macromastia Hypertrophy of breast Upper back pain Neck pain Cervicalgia Intertrigo Other specified erythematous condition [facility] in this [facility]* Diagnosis Status post laparoscopic fundoplication- Primary Other postprocedural status Esophageal dysphagia Dysphagia, pharyngoesophageal phase Macromastia Hypertrophy of breast Upper back pain Neck pain Cervicalgia Intertrigo Other specified erythematous condition [facility] this [facility]* Diagnosis Pre-operative examination- Primary Preoperative examination, unspecified Paraesophageal hernia Diaphragmatic hernia without mention of obstruction or gangrene Skin cancer Unspecified malignant neoplasm of skin, site unspecified Dysphagia, unspecified type Nicotine vapor product user Macromastia Hypertrophy of breast Upper back pain Neck pain Cervicalgia Intertrigo Other specified erythematous condition [facility]* Diagnosis Macromastia- Primary Hypertrophy of breast Macromastia Hypertrophy of breast Upper back pain Neck pain Cervicalgia Intertrigo Other specified erythematous condition [facility]* Diagnosis Pre-op evaluation- Primary Preoperative examination, unspecified Macromastia Hypertrophy of breast Macromastia Hypertrophy of breast Upper back pain Neck pain Cervicalgia Intertrigo Other specified erythematous condition [facility] this [facility]* Diagnosis Status post repair of paraesophageal diaphragmatic hernia- Primary Other postprocedural status Esophageal dysphagia Dysphagia, pharyngoesophageal phase Overweight (BMI 25.0-29.9) Overweight [facility]* Diagnosis Post-operative state- Primary Other postprocedural status [facility]* Diagnosis History of fundoplication- Primary Personal history of surgery to other organs [facility] Diagnosis Pre-op exam Preoperative examination, unspecified Dysphagia, unspecified type Nicotine vapor product user PONV (postoperative nausea and vomiting) Nausea with vomiting History of EKG Other specified personal history presenting hazards to health History of fundoplication Personal history of surgery to other organs documented [facility] this [facility]* Diagnosis School physical exam- Primary Health examination of defined subpopulation Screening for tuberculosis Screening examination for pulmonary tuberculosis documented in this encounter [facility] note* Diagnosis Post-operative state- Primary Other postprocedural status documented in this encounter [facility] note* Diagnosis Chronic bilateral low back pain without sciatica- Primary documented in this encounter [facility] note* Diagnosis Lumbar facet arthropathy- Primary Lumbosacral spondylosis without myelopathy Right hip pain Pain in joint, pelvic region and thigh Myofascial pain syndrome of lumbar spine documented in this encounter [facility] note* Diagnosis Class 1 obesity with serious comorbidity and body mass index (BMI) of 30.0 to 30.9 in adult, unspecified obesity type- Primary Status post laparoscopic fundoplication Other postprocedural status Gastroesophageal reflux disease without esophagitis Esophageal reflux documented in this encounter [facility] note* Diagnosis Chronic pain of right knee- Primary documented in this encounter [facility] note* Diagnosis Patellar instability of right knee Patellofemoral arthritis of right knee documented in this encounter [facility] note* Diagnosis Chronic pain of right knee documented in this encounter [facility] note* Diagnosis Patellar instability of right knee Patellofemoral arthritis of right knee documented in this encounter [facility] note* Diagnosis Patellar instability of right knee Patellofemoral arthritis of right knee documented in this encounter [facility] note* Diagnosis Patellofemoral arthritis of right knee- Primary documented in this encounter [facility] note* Diagnosis Class 1 obesity with serious comorbidity and body mass index (BMI) of 30.0 to 30.9 in adult, unspecified obesity type- Primary Status post laparoscopic fundoplication Other postprocedural status Gastroesophageal reflux disease without esophagitis Esophageal reflux documented in this encounter [facility] note* Diagnosis Pre-operative examination- Primary Preoperative examination, unspecified Paraesophageal hernia Diaphragmatic hernia without mention of obstruction or gangrene Skin cancer Unspecified malignant neoplasm of skin, site unspecified Dysphagia, unspecified type Nicotine vapor product user Pre-op exam Preoperative examination, unspecified Dysphagia, unspecified type Nicotine vapor product user PONV (postoperative nausea and vomiting) Nausea with vomiting History of EKG Other specified personal history presenting hazards to health History of fundoplication Personal history of surgery to other organs Encounter for screening mammogram for breast cancer documented [facility]* Diagnosis Right hip pain Pain in joint, pelvic region and thigh Pre-operative examination- Primary Preoperative examination, unspecified Paraesophageal hernia Diaphragmatic hernia without mention of obstruction or gangrene Skin cancer Unspecified malignant neoplasm of skin, site unspecified Dysphagia, unspecified type Nicotine vapor product user Pre-op exam Preoperative examination, unspecified Dysphagia, unspecified type Nicotine vapor product user PONV (postoperative nausea and vomiting) Nausea with vomiting History of EKG Other specified personal history presenting hazards to health History of fundoplication Personal history of surgery to other organs documented in this encounter [facility] note* Diagnosis Pre-operative examination- Primary Preoperative examination, unspecified Paraesophageal hernia Diaphragmatic hernia without mention of obstruction or gangrene Skin cancer Unspecified malignant neoplasm of skin, site unspecified Dysphagia, unspecified type Nicotine vapor product user Pre-op exam Preoperative examination, unspecified Dysphagia, unspecified type Nicotine vapor product user PONV (postoperative nausea and vomiting) Nausea with vomiting History of EKG Other specified personal history presenting hazards to health History of fundoplication Personal history of surgery to other organs Class 1 obesity with serious comorbidity and body mass index (BMI) of 30.0 to 30.9 in adult, unspecified obesity type- Primary Gastroesophageal reflux disease without esophagitis Esophageal reflux documented in this encounter [facility] note* Diagnosis Pre-operative examination- Primary Preoperative examination, unspecified Paraesophageal hernia Diaphragmatic hernia without mention of obstruction or gangrene Skin cancer Unspecified malignant neoplasm of skin, site unspecified Dysphagia, unspecified type Nicotine vapor product user Pre-op exam Preoperative examination, unspecified Dysphagia, unspecified type Nicotine vapor product user PONV (postoperative nausea and vomiting) Nausea with vomiting History of EKG Other specified personal history presenting hazards to health History of fundoplication Personal history of surgery to other organs Encounter for screening mammogram for breast cancer documented in this encounter [facility] note* Diagnosis Pre-operative examination- Primary Preoperative examination, unspecified Paraesophageal hernia Diaphragmatic hernia without mention of obstruction or gangrene Skin cancer Unspecified malignant neoplasm of skin, site unspecified Dysphagia, unspecified type Nicotine vapor product user Pre-op exam Preoperative examination, unspecified Dysphagia, unspecified type Nicotine vapor product user PONV (postoperative nausea and vomiting) Nausea with vomiting History of EKG Other specified personal history presenting hazards to health History of fundoplication Personal history of surgery to other organs Disorder of bone- Primary Disorder of bone and cartilage, unspecified Sacral pain Disorders of sacrum documented in this encounter [facility] note* Diagnosis Pre-operative examination- Primary Preoperative examination, unspecified Paraesophageal hernia Diaphragmatic hernia without mention of obstruction or gangrene Skin cancer Unspecified malignant neoplasm of skin, site unspecified Dysphagia, unspecified type Nicotine vapor product user Pre-op exam Preoperative examination, unspecified Dysphagia, unspecified type Nicotine vapor product user PONV (postoperative nausea and vomiting) Nausea with vomiting History of EKG Other specified personal history presenting hazards to health History of fundoplication Personal history of surgery to other organs Chronic pain of multiple joints- Primary Pain in joint, multiple sites Myalgias Fatigue, unspecified type documented in this encounter [facility] note* Diagnosis Pre-operative examination- Primary Preoperative examination, unspecified Paraesophageal hernia Diaphragmatic hernia without mention of obstruction or gangrene Skin cancer Unspecified malignant neoplasm of skin, site unspecified Dysphagia, unspecified type Nicotine vapor product user Pre-op exam Preoperative examination, unspecified Dysphagia, unspecified type Nicotine vapor product user PONV (postoperative nausea and vomiting) Nausea with vomiting History of EKG Other specified personal history presenting hazards to health History of fundoplication Personal history of surgery to other organs Disorder of bone Disorder of bone and cartilage, unspecified Sacral pain Disorders of sacrum documented in this encounter [facility] note* Diagnosis Pre-operative examination- Primary Preoperative examination, unspecified Paraesophageal hernia Diaphragmatic hernia without mention of obstruction or gangrene Skin cancer Unspecified malignant neoplasm of skin, site unspecified Dysphagia, unspecified type Nicotine vapor product user Pre-op exam Preoperative examination, unspecified Dysphagia, unspecified type Nicotine vapor product user PONV (postoperative nausea and vomiting) Nausea with vomiting History of EKG Other specified personal history presenting hazards to health History of fundoplication Personal history of surgery to other organs Class 1 obesity with serious comorbidity and body mass index (BMI) of 30.0 to 30.9 in adult, unspecified obesity type- Primary Gastroesophageal reflux disease without esophagitis Esophageal reflux documented in this encounter [facility] note* Diagnosis Pre-operative examination- Primary Preoperative examination, unspecified Paraesophageal hernia Diaphragmatic hernia without mention of obstruction or gangrene Skin cancer Unspecified malignant neoplasm of skin, site unspecified Dysphagia, unspecified type Nicotine vapor product user Pre-op exam Preoperative examination, unspecified Dysphagia, unspecified type Nicotine vapor product user PONV (postoperative nausea and vomiting) Nausea with vomiting History of EKG Other specified personal history presenting hazards to health History of fundoplication Personal history of surgery to other organs Heartburn- Primary Status post repair of paraesophageal diaphragmatic hernia Other postprocedural status Overweight (BMI 25.0-29.9) Overweight Other irritable bowel syndrome Other dysphagia documented in this encounter [facility] note* Diagnosis Pre-operative examination- Primary Preoperative examination, unspecified Paraesophageal hernia Diaphragmatic hernia without mention of obstruction or gangrene Skin cancer Unspecified malignant neoplasm of skin, site unspecified Dysphagia, unspecified type Nicotine vapor product user Pre-op exam Preoperative examination, unspecified Dysphagia, unspecified type Nicotine vapor product user PONV (postoperative nausea and vomiting) Nausea with vomiting History of EKG Other specified personal history presenting hazards to health History of fundoplication Personal history of surgery to other organs Other dysphagia documented in this encounter [facility] note* Diagnosis Pre-operative examination- Primary Preoperative examination, unspecified Paraesophageal hernia Diaphragmatic hernia without mention of obstruction or gangrene Skin cancer Unspecified malignant neoplasm of skin, site unspecified Dysphagia, unspecified type Nicotine vapor product user Pre-op exam Preoperative examination, unspecified Dysphagia, unspecified type Nicotine vapor product user PONV (postoperative nausea and vomiting) Nausea with vomiting History of EKG Other specified personal history presenting hazards to health History of fundoplication Personal history of surgery to other organs Heartburn documented in this encounter [facility] note* Diagnosis Pre-operative examination- Primary Preoperative examination, unspecified Paraesophageal hernia Diaphragmatic hernia without mention of obstruction or gangrene Skin cancer Unspecified malignant neoplasm of skin, site unspecified Dysphagia, unspecified type Nicotine vapor product user Pre-op exam Preoperative examination, unspecified Dysphagia, unspecified type Nicotine vapor product user PONV (postoperative nausea and vomiting) Nausea with vomiting History of EKG Other specified personal history presenting hazards to health History of fundoplication Personal history of surgery to other organs Pre-op exam- Primary Preoperative examination, unspecified Heartburn Paraesophageal hernia Diaphragmatic hernia without mention of obstruction or gangrene Over weight Overweight * Assessment & Plan Note - Laila Bowers APRN.FINANCIAL MANAGER - 01/22/2025 7:45 AM EDT Associated Problem(s): Over weight 27.52 kg/m2 Phentermine- last dose 01/19/25. Instructed to continue as prescribed post-procedure * Assessment & Plan Note - Laila Bowers APRN.CNP - 01/22/2025 7:44 AM EDT Associated Problem(s): Paraesophageal hernia Following with GI Patient has had ongoing upper GI issues for years with complex history. She is s/p hiatal hernia repair with LINX placement 12/2019. Since surgery she endorses the same constant epigastric pain and nausea with sensation of food getting stick. She has had at least 3 esophageal dilations since LINX placement. She is also s/p eladia 12/2022. Pepcid- last dose 01/15/25. Instructed to continue as prescribed post-procedure * Assessment & Plan Note - Laila Bowers APRN.CNP - 01/22/2025 7:43 AM EDT Associated Problem(s): Pre-op exam See note for medical conditions which may affect john-operative course that were addressed at today's visit. [facility] Diagnosis Pre-operative examination- Primary Preoperative examination, unspecified Paraesophageal hernia Diaphragmatic hernia without mention of obstruction or gangrene Skin cancer Unspecified malignant neoplasm of skin, site unspecified Dysphagia, unspecified type Nicotine vapor product user Pre-op exam Preoperative examination, unspecified Dysphagia, unspecified type Nicotine vapor product user PONV (postoperative nausea and vomiting) Nausea with vomiting History of EKG Other specified personal history presenting hazards to health History of fundoplication Personal history of surgery to other organs Pre-op exam- Primary Preoperative examination, unspecified Heartburn Paraesophageal hernia Diaphragmatic hernia without mention of obstruction or gangrene Over weight Overweight Monica esophagitis (HCC)- Primary Candidiasis of the esophagus documented in this encounter [facility] note* Diagnosis Pre-operative examination- Primary Preoperative examination, unspecified Paraesophageal hernia Diaphragmatic hernia without mention of obstruction or gangrene Skin cancer Unspecified malignant neoplasm of skin, site unspecified Dysphagia, unspecified type Nicotine vapor product user Pre-op exam Preoperative examination, unspecified Dysphagia, unspecified type Nicotine vapor product user PONV (postoperative nausea and vomiting) Nausea with vomiting History of EKG Other specified personal history presenting hazards to health History of fundoplication Personal history of surgery to other organs Pre-op exam- Primary Preoperative examination, unspecified Heartburn Paraesophageal hernia Diaphragmatic hernia without mention of obstruction or gangrene Over weight Overweight Class 1 obesity with serious comorbidity and body mass index (BMI) of 30.0 to 30.9 in adult, unspecified obesity type- Primary Gastroesophageal reflux disease without esophagitis Esophageal reflux Status post laparoscopic fundoplication Other postprocedural status [facility] Outpatient Procedure (Routine) - Pending Review Specialty Diagnoses / Procedures Referred By Josemanuel louis Referred To Contact [facility] Diagnoses Esophageal dysphagia Procedures MANOMETRY ESOPHAGEAL FUNCTION W/IMPEDANCE GASTROESOPHAG REFLX TEST W/INTRLUML IMPED ELTRD Yulissa Cabrera MD 1 [employer] [address] [place] [address] [facility] [address] [place] [address] Referral ID Status Reason Start Date Expiration Date Visits Requested Visits Authorized [id number] Pending Review Auto-Generat ed Referral 01/19/2022 01/19/2023 1 1 * Diagnostic Procedure Only (Routine) - Authorized Specialty Diagnoses / Procedures Referred By Josemanuel louis Referred To Contact XR IMAGING Diagnoses Esophageal dysphagia Procedures XR ESOPHAGRAM RADIOLOGIC EXAM ESOPHAGUS SINGLE CONTRAST STUDY Yulissa Cabrera MD 1 [employer] [address] [place] [address] Xr Imaging Referral ID Status Reason Start Date Expiration Date Visits Requested Visits Authorized [id number] Authorized Auto-Generat ed Referral 01/19/2022 02/18/2023 [address] [facility] for referral (narrative)* Diagnostic Procedure Only (Routine) - Closed Specialty Diagnoses / Procedures Referred By Contac t Referred To Contact XR IMAGING Diagnoses Esophageal dysphagia Procedures XR ESOPHAGRAM RADIOLOGIC EXAM ESOPHAGUS SINGLE CONTRAST STUDY Yulissa Cabrera MD 1 [employer] [address] [place] [address] Xr Imaging Referral ID Status Reason Start Date Expiration Date V isits Requested Visits Authorized [id number] Closed Auto-Generate d Referral 01/19/2022 02/18/2023 [address] [facility] for referral (narrative)* Diagnostic Procedure Only (Routine) - Closed Specialty Diagnoses / Procedures Referred By Contac t Referred To Contact XR IMAGING Diagnoses Right hip pain Procedures XR HIP GENERAL 3V PELV/AP/LAT RIGHT RADEX HIP UNILATERAL WITH PELVIS 2-3 VIEWS Dariela Dent APRN.CNP [address] [place] [address] Xr Imaging Referral ID Status Reason Start Date Expiration Date V isits Requested Visits Authorized [id number] Closed Auto-Generate d Referral 09/25/2022 10/25/2023 [address] [facility] for referral (narrative)* Outpatient Procedure (Routine) - Authorized Specialty Diagnoses / Procedures Referred By Contac t Referred To Contact [facility] Diagnoses Gastroesophageal reflux disease, unspecified whether esophagitis present Procedures EGD - THERAPEUTIC, EUS, OR TUBE INTERVENTIONS EGD - THERAPEUTIC, EUS, OR TUBE INTERVENTIONS ESOPHAGOGASTRODUODENOSC OPY TRANSORAL DIAGNOSTIC Yulissa Cabrera MD 1 [employer] [address] [place] [address] [facility] [address] [place] [address] Referral ID Status Reason Start Date Expiration Date Visits Requested Visits Authorized [id number] Authorized Auto-Generat ed Referral 10/24/2022 10/24/2023 1 1 * Outpatient Procedure (Routine) - Pending Review Specialty Diagnoses / Procedures Referred By Contac t Referred To Contact [facility] Diagnoses Esophageal dysphagia Procedures MANOMETRY ESOPHAGEAL ESOPHAGEAL MOTILITY STUDY W/INTERP&RPT Yulissa Cabrera MD 1 [employer] [facility] [employer] [address] [place] [address] [facility] Disease [address] [address] Referral ID Status Reason Start Date Expiration Date Visits Requested Visits Authorized [id number] Pending Review Auto-Generat ed Referral 10/24/2022 10/24/2023 1 1 * Diagnostic Procedure Only (Routine) - Authorized Specialty Diagnoses / Procedures [facility] Referred To Contact XR IMAGING Diagnoses Gastroesophageal reflux disease, unspecified whether esophagitis present Esophageal dysphagia Procedures XR UPPER GI ROUTINE DOUBLE CONTRAST/AIR RADIOLOGIC EXAM UPR GI TRC DOUBLE CONTRAST STUDY Yulissa Cabrera MD [address] [employer] [address] [address] Xr Imaging Referral ID Status Reason Start Date Expiration Date Visits Requested Visits Authorized [id number] Authorized Auto-Generat ed Referral 10/24/2022 11/23/2023 1 1 [facility] Diagnostic Procedure Only (Routine) - Closed Specialty Diagnoses / Procedures [facility] Referred To Contact XR IMAGING Diagnoses Gastroesophageal reflux disease, unspecified whether esophagitis present Esophageal dysphagia Procedures XR UPPER GI ROUTINE DOUBLE CONTRAST/AIR RADIOLOGIC EXAM UPR GI TRC DOUBLE CONTRAST STUDY Yulissa Cabrera MD 1 [employer] [address] [place] [address] Xr Imaging Referral ID Status Reason Start Date Expiration Date V isits Requested Visits Authorized [id number] Closed Auto-Generate d Referral 10/24/2022 11/23/2023 1 1 [facility] for referral (narrative)* Outpatient Procedure (Routine) - Closed Specialty Diagnoses / Procedures Referred By Josemanuel louis Referred To Contact [facility] Diagnoses Gastroesophageal reflux disease, unspecified whether esophagitis present Procedures EGD - THERAPEUTIC, EUS, OR TUBE INTERVENTIONS EGD - THERAPEUTIC, EUS, OR TUBE INTERVENTIONS ESOPHAGOGASTRODUODENOSC OPY TRANSORAL DIAGNOSTIC Yulissa Cabrera MD [address] [address] [facility] [address] [place] [address] Referral ID Status Reason Start Date Expiration Date V isits Requested Visits Authorized [id number] Closed Auto-Generate d Referral 10/24/2022 10/24/2023 1 1 [facility] for referral (narrative)* Diagnostic Procedure Only (Routine) - Authorized Specialty Diagnoses / Procedures Referred By Josemanuel louis Referred To Contact BR IMAGING Diagnoses Macromastia Procedures RAMIRO DIAGNOSTIC BILAT DIAGNOSTIC MAMMOGRAPHY COMPUTER-AIDED DETCJ BI Gentry Browne MD [address] [place] [address] [facility] [address] [place] [phone] Referral ID Status Reason Start Date Expiration Date Visits Requested Visits Authorized [id number] Authorized Auto-Generat ed Referral 12/27/2022 01/26/2024 1 1 [facility] for referral (narrative)* Diagnostic Procedure Only (Routine) - Pending Review Specialty Diagnoses / Procedures [facility] By [facility] Referred To Contact BR IM[facility] Diagnoses Macromastia Procedures RAMIRO SCREENING SCREENING MAMMOGRAPHY BI 2-VIEW BREAST INC CAD Gentry Browne MD [address] [place] [address] [facility] [address] [place] [phone] Referral ID Status Reason Start Date Expiration Date Visits Requested Visits Authorized [id number] Pending Review Auto-Generat ed Referral 12/27/2022 01/26/2024 [address] [facility] for referral (narrative)* - Authorized Specialty Diagnoses / Procedures Referred By Contac t Referred To Contact Diagnoses Pre-op evaluation Procedures REFER TO PACC - PRE ANESTHESIA CONSULTATION CLINIC Gentry Browne MD [address] [place] [address] Referral ID Status Reason Start Date Expiration Date V isits Requested Visits Authorized [id number] Authorized 01/02/2023 04/02/2023 [address] [facility] for referral (narrative)* Outpatient Procedure (Routine) - Authorized Specialty Diagnoses / Procedures Referred By Josemanuel louis Referred To Contact [facility] Diagnoses History of fundoplication Procedures EGD DIAGNOSTIC EGD DIAGNOSTIC ESOPHAGOGASTRODUODENOSCOPY TRANSORAL DIAGNOSTIC Yulissa Cabrera MD [address] [address] [facility] [address] [place] [address] Referral ID Status Reason Start Date Expiration Date Visits Requested Visits Authorized [id number] Authorized Auto-Generat ed Referral 05/07/2023 05/07/2024 [address] [facility] for referral (narrative)* Diagnostic Procedure Only (Routine) - New Request Specialty Diagnoses / Procedures Referred By Contac t Referred To Contact BR IMAG[facility] Diagnoses Encounter for screening mammogram for breast cancer Procedures RAMIRO SCREENING W MONSERRAT SCREENING DIGITAL BREAST TOMOSYNTHESIS BI SCREENING MAMMOGRAPHY BI 2-VIEW BREAST INC CAD Luis Hart MD [address] [place] [address] [facility] [address] [place] [address] Referral ID Status Reason Start Date Expiration Date Visits Requested Visits Authorized [id number] New Request Auto-Generat ed Referral 07/08/2024 08/07/2025 [address] [facility] for referral (narrative)* Diagnostic Procedure Only (Routine) - Closed Specialty Diagnoses / Procedures Referred By Contac t Referred To Contact XR IMAGING Diagnoses Right hip pain Procedures XR HIP GENERAL 3V PELV/AP/LAT RIGHT RADEX HIP UNILATERAL WITH PELVIS 2-3 VIEWS Dariela Singletary, OPERATIONS ADMINISTRATOR.FINANCIAL MANAGER [address] [place] [address] [place] [address] Referral ID Status Reason Start Date Expiration Date V isits Requested Visits Authorized [id number] Closed Auto-Generate d Referral 09/25/2022 10/25/2023 [address] [facility] for visit Narrative* Diagnostic Procedure Only (Routine) - Closed Specialty Diagnoses / Procedures Referred By Contac t Referred To Contact XR IMAGING Diagnoses Esophageal dysphagia Procedures XR ESOPHAGRAM RADIOLOGIC EXAM ESOPHAGUS SINGLE CONTRAST STUDY Yulissa Cabrera MD 1 [facility] [employer] [address] [place] [address] Xr Imaging Referral ID Status Reason Start Date Expiration Date V isits Requested Visits Authorized [id number] Closed Auto-Generate d Referral 01/19/2022 02/18/2023 [address] [facility] for visit Narrative* Diagnostic Procedure Only (Routine) - Closed Specialty Diagnoses / Procedures Referred By Contac t Referred To Contact XR IMAGING Diagnoses Gastroesophageal reflux disease, unspecified whether esophagitis present Esophageal dysphagia Procedures XR UPPER GI ROUTINE DOUBLE CONTRAST/AIR RADIOLOGIC EXAM UPR GI TRC DOUBLE CONTRAST STUDY Yulissa aCbrera MD 1 [employer] [address] [place] [address] Xr Imaging Referral ID Status Reason Start Date Expiration Date V isits Requested Visits Authorized [id number] Closed Auto-Generate d Referral 10/24/2022 11/23/2023 [address] [facility] for visit Narrative* Outpatient Procedure (Routine) - Closed Specialty Diagnoses / Procedures Referred By Josemanuel t Referred To Contact [facility] Diagnoses Gastroesophageal reflux disease, unspecified whether esophagitis present Procedures EGD - THERAPEUTIC, EUS, OR TUBE INTERVENTIONS EGD - THERAPEUTIC, EUS, OR TUBE INTERVENTIONS ESOPHAGOGASTRODUODENOSC OPY TRANSORAL DIAGNOSTIC Yulissa Cabrera MD 1 [facility] [address] [place] [address] [address] Referral ID Status Reason Start Date Expiration Date V isits Requested Visits Authorized [id number] Closed Auto-Generate d Referral 10/24/2022 10/24/2023 [address] [facility] for visit Narrative* Outpatient Procedure (Routine) - Closed Specialty Diagnoses / Procedures Referred By [facility] Referred To Contact [facility] Diagnoses History of fundoplication Procedures EGD DIAGNOSTIC EGD DIAGNOSTIC ESOPHAGOGASTRODUODENOSCOPY TRANSORAL DIAGNOSTIC Yulissa Cabrera MD [address] [address] Referral ID Status Reason Start Date Expiration Date V isits Requested Visits Authorized [id number] Closed Auto-Generate d Referral 05/07/2023 05/07/2024 [address] [facility] for visit Narrative* Diagnostic Procedure Only (Routine) - Closed Specialty Diagnoses / Procedures [facility] By [facility] Referred To Contact XR IMAGING Diagnoses Right hip pain Procedures XR HIP GENERAL 3V PELV/AP/LAT RIGHT RADEX HIP UNILATERAL WITH PELVIS 2-3 VIEWS Dariela Singletary, OPERATIONS ADMINISTRATOR.FINANCIAL MANAGER [address] [place] [address] [place] [address] Referral ID Status Reason Start Date Expiration Date V isits Requested Visits Authorized [id number] Closed Auto-Generate d Referral 09/25/2022 10/25/2023 [address] [facility] for visit Narrative* Diagnostic Procedure Only (Routine) - Closed Specialty Diagnoses / Procedures [facility] By [facility] Referred To Contact [facility] Diagnoses Other dysphagia Procedures US HEAD/NECK SOFT TISSUE OTHER US SOFT TISSUE HEAD & NECK REAL TIME IMGE DOCYulissa Hall MD [address] [address] Phone: tel: fax: [place] [address] Referral ID Status Reason Start Date Expiration Date V isits Requested Visits Authorized [id number] Closed Auto-Generate d Referral 12/24/2024 01/23/2026 [address] [facility] for visit Narrative* Diagnostic Procedure Only (Routine) - Closed Specialty Diagnoses / Procedures Referred By [facility]nakul t Referred To Contact XR IMAGING Diagnoses Heartburn Procedures XR UPPER GI SINGLE CONTRAST RADIOLOGIC EXAM UPR GI TRC SINGLE CONTRAST STUDY Yulissa Cabrera MD [address] [address] Phone: tel: fax: XR IMAGING [id number] Referral ID Status Reason Start Date Expiration Date V isits Requested Visits Authorized [id number] Closed Auto-Generate d Referral 10/21/2024 10/20/2025 [address] [facility] for visit Narrative* Outpatient Procedure (Routine) - Closed Specialty Diagnoses / Procedures Referred By Josemanuel louis Referred To Contact [facility] Diagnoses Heartburn Procedures EGD - THERAPEUTIC, EUS, OR TUBE INTERVENTIONS EGD - THERAPEUTIC, EUS, OR TUBE INTERVENTIONS ESOPHAGOGASTRODUODENOSC OPY TRANSORAL DIAGNOSTIC Yulissa Cabrera MD [address] [address] Phone: tel: fax: [facility] [address] [place] [address] Referral ID Status Reason Start Date Expiration Date V isits Requested Visits Authorized [id number] Closed Auto-Generate d Referral 12/24/2024 12/24/2025 1 1 [facility] Reason for Referral Status Reason Specialty Diagnoses / Procedures Referre d By Contact Referred To Contact [facility] Diagnoses Pre-op testing Procedures EKG 12 lead Dara Flores PA-C [address] [place] [address] Status Reason Specialty Diagnoses / Procedures Referre d By Contact Referred To Contact [facility] Diagnoses Dysphagia, unspecified type Procedures FL UGI Dara Flores PA-C [address] [place] [address] Specialty Diagnoses / Procedures Referred By Contac t Referred To Contact Radiology Diagnoses Pelvic pain in female Procedures US Non OB Transvaginal Maricruz Broderick, OPERATIONS ADMINISTRATOR - FINANCIAL MANAGER [address] [place] [address] Referral ID Status Reason Start Date Expiration Date Visits Re quested Visits Authorized [id number] Open 12/25/2021 12/25/2022 1 1 Specialty Diagnoses / Procedures Referred By Contac t Referred To Contact Diagnoses Other dysphagia Procedures CONSULT TO PRE-SURGICAL TESTING (AG) Yulissa Cabrera MD 1 [facility] [address] [place] [address] Referral ID Status Reason Start Date Expiration Date Visits Requested Visits Authorized [id number] Ref Not Required PCP Requested Referral 04/06/2022 07/05/2022 1 1 Specialty Diagnoses / Procedures Referred By Contac t Referred To Contact Diagnoses Esophageal dysphagia Procedures CONSULT TO PRE-SURGICAL TESTING (AG) Yulissa Cabrera MD 1 [facility] [address] [place] [address] Referral ID Status Reason Start Date Expiration Date Visits Requested Visits Authorized [id number] Ref Not Required PCP Requested Referral 05/16/2022 08/14/2022 1 1 Referral ID Status Reason Start Date Expiration Date Visits Requested Visits Authorized [id number] Ref Not Required PCP Requested Referral 06/26/2022 09/24/2022 1 1 Specialty Diagnoses / Procedures Referred By Contac t Referred To Contact [facility] Diagnoses Dysplasia of both hips Right hip pain Procedures CONSULT TO PHYSICAL THERAPY PHYSICAL THERAPY EVALUATION HIGH COMPLEX 45 MINS Older, Dariela, OPERATIONS ADMINISTRATOR.FINANCIAL MANAGER [address] [place] [address] [facility] [place] [address] [place] [address] Referral ID Status Reason Start Date Expiration Date Visits Requested Visits Authorized [id number] Pending Review Auto-Generat ed Referral 09/26/2022 09/26/2023 1 1 Specialty Diagnoses / Procedures Referred By Contac t Referred To Contact Orthopedics Diagnoses Right hip pain Procedures CONSULT TO ORTHOPAEDICS OFFICE/OUTPATIENT [facility] 60-74 MINUTES Taylor Willard APRN.CUSTOMER SERVICES MANAGER [address] [place] [address] Referral ID Status Reason Start Date Expiration Date Visits Requested Visits Authorized [id number] Authorized PCP Requested Referral 11/22/2022 11/22/2023 1 1 Specialty Diagnoses / Procedures Referred By Contac t Referred To Contact MR IMAGING Diagnoses Right hip pain Procedures MRI PELVIS ORTHO GENERAL WO IVCON MRI PELVIS W/O CONTRAST MATERIAL Gildardo Hayes MD [address] [place] [address] Mr Imaging Referral ID Status Reason Start Date Expiration Date Visits Requested Visits Authorized [id number] Pending Review Auto-Generat ed Referral 12/10/2022 01/09/2024 1 1 Specialty Diagnoses / Procedures Referred By Contac t Referred To Contact Diagnoses Gastroesophageal reflux disease without esophagitis Procedures CONSULT TO PRE-SURGICAL TESTING (AG) Yulissa Cabrera MD [address] [facility] [address] [place] [address] Referral ID Status Reason Start Date Expiration Date Visits Requested Visits Authorized [id number] Ref Not Required PCP Requested Referral 12/28/2022 03/28/2023 1 1 Specialty Diagnoses / Procedures Referred By Contac t Referred To Contact [facility] Diagnoses Gastroesophageal reflux disease without esophagitis Procedures ECG COMPLETE ECG ROUTINE ECG W/LEAST 12 LDS W/I&R Yulissa Cabrera MD [address] [place] [address] [facility] [place] [address] [place] [address] Referral ID Status Reason Start Date Expiration Date Visits Requested Visits Authorized [id number] Pending Review Auto-Generat ed Referral 12/28/2022 12/28/2023 1 1 Specialty Diagnoses / Procedures Referred By Contac t Referred To Contact Diagnoses Chronic bilateral low back pain without sciatica Procedures CONSULT TO WELLNESS PHYSICIAN OFFICE/OUTPATIENT [facility] 60-74 MINUTES Lindsey Clay PA-C [address] [place] [address] Referral ID Status Reason Start Date Expiration Date Visits Requested Visits Authorized [id number] Authorized PCP Requested Referral 06/07/2023 09/05/2023 1 1 Specialty Diagnoses / Procedures Referred By Contac t Referred To Contact XR IMAGING Diagnoses Chronic bilateral low back pain without sciatica Procedures XR LUMBAR MOTION 4V AP/LAT/ FLEX/EXT RADEX SPINE LUMBOSACRAL MINIMUM 4 VIEWS Lindsey Clay PA-C [address] [place] [address] [place] [address] Referral ID Status Reason Start Date Expiration Date Visits Requested Visits Authorized [id number] Pending Review Auto-Generat ed Referral 06/07/2023 07/06/2024 1 1 Specialty Diagnoses / Procedures Referred By Contac t Referred To Contact Radiology Diagnoses Patellar instability of right knee Patellofemoral arthritis of right knee Procedures MR knee right wo contrast Carlos Lewis MD 1 [place] [email or web address] [address] [place] [address] Referral ID Status Reason Start Date Expiration Date V isits Requested Visits Authorized [id number] Pending Review 01/28/2024 01/27/2025 1 1 Referral ID Status Reason Start Date Expiration Date Visits Re quested Visits Authorized [id number] Closed 01/28/2024 01/27/2025 1 1 Specialty Diagnoses / Procedures Referred By Contac t Referred To Contact Physical Therapy Diagnoses Patellar instability of right knee Patellofemoral arthritis of right knee Procedures [place] OFFICE/OUTPATIENT [facility] MDM 60 MINUTES Carlos Lewis MD 1 [employer] [address] [place] [address] Referral ID Status Reason Start Date Expiration Date Visits Requested Visits Authorized [id number] Pending Review Eval and Treat 02/11/2024 08/09/2024 99 [phone] Specialty Diagnoses / Procedures Referred By Contac t Referred To Contact [facility] Diagnoses Sacral pain Procedures CONSULT TO PHYSICAL THERAPY PHYSICAL THERAPY EVALUATION HIGH COMPLEX 45 MINS Lindsey Clay PA-C [address] [place] [address] [facility] [place] [address] Referral ID Status Reason Start Date Expiration Date Visits Requested Visits Authorized [id number] Pending Review Auto-Generat ed Referral 08/27/2024 08/27/2025 1 1 Specialty Diagnoses / Procedures Referred By Contac t Referred To Contact CT IMAGING Diagnoses Disorder of bone Sacral pain Procedures CT SACRUM/COCCYX WO IVCON CT PELVIS W/O CONTRAST MATERIAL Lindsey Clay PA-C [address] [place] [address] [place] [address] Referral ID Status Reason Start Date Expiration Date Visits Requested Visits Authorized [id number] Authorized Auto-Generat ed Referral 08/27/2024 10/26/2024 1 1 Discharge Instructions * Instructions* Michela Quintero RN - 12/14/2019 Please bring your [facility] Surgical Information folder on the day of surgery. Please bola the last dose taken (date and time ) on your Daily Medications List provided in your After Visit Summary. Please bring a photo ID and insurance information TAKE the following medications the morning of your surgery: OMEPRAZOLE, CHOLETRAMINE You may take your prescription pain medications. You may take Tylenol (Acetaminophen) if needed forpain. No Motrin, Ibuprofen, or Advil 24 hours prior to surgery, or longer if instructed by your surgeon. No Aleve or Naprosyn 3 days prior to surgery, or longer if instructed by your surgeon. If you are on BLOOD THINNERS or ASPIRIN: NO ASPIRIN FOR FIVE DAYS PRIOR TO SURGERY Additional instructions: NONE You will receive a reminder call the day before surgery with your Same Day Surgery arrival time. If you have specific questions, please call your surgeon. * Attachments The following attachments cannot be sent through Care Everywhere. * Eladia Fundoplication: Pre-op (Angolan) * EGD (Upper Endoscopy): Pre-op (Angolan) documented in this encounter* Instructions* Siena Mccormick RN - 02/23/2020 Upper GI Endoscopy: What to expect at home ACTIVITY: DO NOT DRIVE, OPERATE MACHINERY, OR DRINK ANY ALCOHOL TODAY. Avoid making critical decisions, signing legal documents, or performing any activity that requires alertness for the rest of the day. You may be bloated or have gas pains since air was introduced into the stomach for the procedure. You may need to pass the gas throughout the day. You may experience a mild sore throat. You may use an jxyh-xov-tenbhlk chloraseptic spray, gargle with warm salt water, or use throat lozenges. Notify your physician if this feeling lasts more than 48 hours. Rest the remainder of the day. You may resume normal activity tomorrow. You may return to work tomorrow. DIET: You may resume a normal diet unless notified or recommended by your physician. You may be eager to eat a large meal after fasting, but it is a good idea to start with light mealsand ease into solid foods the first day. (*) If your stomach is upset, try clear liquids and bland, low-fat foods like plain toast or rice. Drink plenty of fluids for the first 24 hours (unless your physician states otherwise). MEDICATION: Resume your normal home medications unless notified or recommended by your physician. If you take blood thinners (such as Coumadin, Eliquis, Plavix, Aspirin, etc.) or anti-inflammatory medications (Advil, Motrin, Aleve, etc.), ask your physician when you may resume these medications. FOLLOW-UP APPOINTMENT: Follow up with or call your physician as needed. When to call for help: Call your doctor IMMEDIATELY or seek medical care if you experience: ? Severe pain or vomiting ? Coughing up more than a teaspoon of blood ? You pass a large amount of tar-like stools ? Your belly is swollen and firm with severe pain ? A fever greater than 101 degrees ? Redness or swelling of arm from the IV site for more than 48 hours ? Sudden onset of chest pain or shortness of breath ? If you become extremely dizzy or pass out (lose consciousness) IF YOU ARE UNABLE TO REACH YOUR PHYSICIAN GO TO NEAREST EMERGENCY DEPARTMENT Esophageal Dilation You must carefully read the Consumer Information Use and Disclaimer below in order to understand and correctly use this information Why is this procedure done? The esophagus is a tube that food moves through to get from your mouth to your stomach. Esophageal dilation is a procedure used when part of the esophagus becomes narrow. When the esophagus narrows, this condition is called esophageal stricture. What will the results be? The narrowed portion of the esophagus will be stretched. This will make swallowing easier. What happens before the procedure? Your doctor will take your history and do an exam. Talk to your doctor about: All the drugs you are taking. Be sure to include all prescription and muix-rjt-qnjqxnk (OTC) drugs,and herbal supplements. Tell the doctor about any drug allergy. Bring a list of drugs you take withyou. Any bleeding problems. Be sure to tell your doctor if you are taking any drugs that may cause bleeding. Some of these are Coumadin, ibuprofen, Aleve (naproxen), or aspirin. Certain vitamins and herbs, such as garlic and fish oil, may also add to the risk for bleeding. You may need to stop these drugs as well. Talk to your doctor about them. If you need to stop eating or drinking before your procedure. You will not be allowed to drive right away after the procedure. Ask a family member or a friend todrive you home. What happens during the procedure? You will lie on the exam table. Your blood pressure and heart rate will be closely checked during the procedure. Your doctor will put an I.V. in your arm to give you fluids and drugs. You may be asleep or awake during the procedure. The doctor will spray a numbing drug into your throat. This will help you stay pain free and comfortable during the procedure. A flexible tube with a tiny camera inside is put in through your mouth and down into your esophagus. You may feel some pressure on your throat as it passes. A special balloon or soft dilators are used to stretch the narrowed part. X-rays will be done to see if the esophagus is wide enough. The procedure takes about 30 minutes. What happens after the procedure? You will go to the Recovery Room for 2 to 3 hours. Your doctor will tell you when you can go home. Your throat will be sore. Your doctor will give you drugs for this. What care is needed at home? Ask your doctor what you need to do when you go home. Make sure you ask questions if you do not understand what the doctor says. This way you will know what you need to do. Make sure to take all the drugs ordered by your doctor. It will be painful to swallow for a few days. Suck on ice chips to help ease throat pain. Soft foods like soups and pureed fruits and vegetables will be easier to eat at first. Cold or warmliquids may help soothe your sore throat. You can start eating solid foods when your doctor tells you to. Your doctor may tell you to use a saline mouth rinse. Use this after meals or when needed. Mix 1/2 teaspoon (2.5 grams) of salt in 1 cup (240 mL) of water. Rest for the rest of the day. Take it easy for a few days. What follow-up care is needed? Your doctor may ask you to make visits to the office to check on your progress. Be sure to keep these visits. Your doctor may send you to a dietitian to help with your diet. What lifestyle changes are needed? Stay away from foods that may bother your throat. Prevent heartburn by eating small meals more often. Avoid eating too much in one meal. What problems could happen? Scarring of the esophagus Esophagus may have a hole or tear in it Narrowing may return When do I need to call the doctor? Signs of infection. These include a fever of 100.4 F (38 C) or higher, chills. Throat pain not relieved by drugs Throwing up with or without blood Problems keeping any food or liquids down You are not feeling better in 2 to 3 days or you are feeling worse Where can I learn more? [employer] http://www.asge.org/patients/patients.aspx?sc=396 Consumer Information Use and Disclaimer: This information is not specific medical advice and does not replace information you receive from your health care provider. This is only a brief summary of general information. It does NOT include all information about conditions, illnesses, injuries, tests, procedures, treatments, therapies, discharge instructions or life-style choices that may apply to you. You must talk with your health care provider for complete information about your health and treatment options. This information should not be used to decide whether or not to accept your health care provider s advice, instructions or recommendations. Only your health care provider has the knowledge and training to provide advice that is right for you. Last Reviewed [id number] Last Updated 10/27/16 documented in this encounter* Instructions* Dale Zhu MD - 12/25/2019 Discharge Instructions Call your surgeon in 1 to 2 days to schedule a follow-up appointment in 1-2 weeks. Please continue to eat a food bolus every 1 hour while awake. OK to shower. OK for activity as tolerated. No lifting over 15 pounds. If you have steri-strips, you may remove them 5 days after your surgery. If your steri-strips fall off sooner, you may leave them off. If you have chava, they can be removed in 14 days after your surgery by your surgeon or PCP. If you have a drain, please record daily output amounts and bring the recordings with you to your office follow up. No driving while taking narcotic pain medications. You may take an over the counter stool softener while on narcotics for constipation as needed (colace, miralax, etc). Call your Physician or return to the Emergency Room if you experience: -New or increased pain. -New or increased bleeding. -Nausea & vomitting. -Fever & chills. -Shortness of breath. -Chest pain. -Abdominal distention. documented in this encounter* Instructions* Bola Doll, - 09/01/2020 Tonsillectomy / Adenoidectomy Home Instructions Dr. Bola Doll Dietary Instructions Days 1 & 2 Abundant water, Popsicles, Broth, Jello, Gatorade, Tea, Sherbet - Frequently Repeated Days 3 - 7 Soft foods may be added gradually: Mashed Potatoes, Soft Cereals, Soft-Boiled and Poached Eggs, Rice, Noodles, Puddings, Soups, Gravy, and Apple Sauce AVOID: [place] Fruit (orange and lemon juices), Hot and Seasoned Foods, and Regular Solid Foods General Instructions 1. Quiet activity for the first 14 days. Heavy lifting, straining, or physical exertion should be avoided. You can generally return to work or school 7 to 10 days after surgery. 2. Milk and dairy products may be introduced after you can swallow effectively to clear secretions.Otherwise the phlegm and mucus build-up in the throat may cause too much congestion. Coughing, hacking, and clearing of the throat are to be avoided. 3. Encourage fluids and adequate intake of soft foods. Drink plenty of fluids after the surgery. Staying well-hydrated is associated with less pain. The pain may radiate and cause ear discomfort. It is normal for the pain to be more apparent during sleep and in the mornings. 4. A sore throat is to be expected and may last up to 2 weeks in duration. An ice collar or cold compress to the neck is soothing and may be used if desired. Snoring and mouth-breathing are normal after surgery because of swelling. 5. Ibuprofen (Motrin or Advil) can be used safely for pain control after surgery. For the first fewdays following surgery, pain medication should be given on a regular schedule. 6. A low-grade fever up to 100.5 degrees may persist for a few days after the surgery. Good fluid intake helps to keep the fever down. 7. The tonsil bed will heal with a wet scab, giving the appearance of a thick coating to the area. This is a normal part of the healing process and is not an infection. Please realize that antibiotics after do not reduce pain and are not given routinely. The scab can cause bad breath. 8. You should have the prescriptions filled for use beginning the day of the operation. Take them as directed. Resume home medications unless instructed otherwise. Call our Office at [phone] 1. If bleeding should occur. 2. If you have any problems, questions, or concerns IF YOU HAVE AN EMERGENCY, AND ARE UNABLE TO REACH THE DOCTOR AT THE ABOVE NUMBER, CALL 911. documented in this encounter History of Present Illness * Kiki Oliveira MA - 12/14/2019 9:30 AM EST Labs obtained on 1st attempt with 22 gauge needle at [facility] site. Patient tolerated well, site benign. documented in this encounter* Charity Cole RN - 12/25/2019 4:56 PM EST here to transport here home * Charity Cole RN - 12/25/2019 3:21 PM EST Discharge instructions reviewed with the patient meds to beds to deliver her medication to the bedside. No further questions. to pick her up after 4pm * Dick Fowler MD - 12/25/2019 12:18 PM EST GENERAL SURGERY Progress Note PATIENT NAME: Josseline Willard TODAY'S DATE: 12/25/2019 SUBJECTIVE: Patient doing well this am. Tolerated diet yesterday pos-op. Npo at midnight for UGI this am. Denies nausea or vomiting. OBJECTIVE: VITALS: BP 113/76 Pulse 87 Temp 98.3 F (36.8 C) (Temporal) Resp 16 Ht 5' 6 (1.676 m) Wt 185 lb (83.9 kg) LMP 11/26/2019 SpO2 98% BMI 29.86 kg/m INTAKE/OUTPUT: I/O last 3 completed shifts: In: 700 [I.V.:700] Out: 1410 [Urine:1400; Blood:10] I/O this shift: In: - Out: 700 [Urine:700] REVIEW OF SYSTEMS: Pertinent positives and negatives as per interval history section PHYSICAL EXAM: CONSTITUTIONAL: A&O X3. LUNGS: Resp effort easy and unlabored ABDOMEN: soft, ND, ATTP. Incisions CDI w/o drainage or sign of infection. No rebound or peritoneal signs. Data: CBC: Recent Labs 12/25/19 0013 WBC 13.6* HGB 12.8 HCT 39.5 PLT 324 BMP: Recent Labs 12/25/19 0013 NA 138 K 4.2 CL 102 CO2 24 BUN 6* CREATININE 0.73 GLUCOSE 122* Hepatic: No results for input(s): AST, ALT, ALB, BILITOT, ALKPHOS in the last 72 hours. ASSESSMENT AND PLAN: 34 year old female sp laparoscopic hiatal hernia repair with Linx 3/5 - NPO for UGI - UGI pending this am - Resume diet after results of UGI - PRN pain control - Dispo planning - Discussed with Dr. Hamzah Fowler MD, PGY 2 Surgery *190 PAGING: From 6a-6p (-s): Page me at [phone] From 6p-6a (-s): - Surg ICU Patients: Page [phone] - Surg Floor Patients: Page [phone] * Charity Cole RN - 12/25/2019 10:23 AM EST gen surgery notified of the patients request for diet order,Dr Yonis Simon noticed of request and will ask Dr Goodson * Katie Santiago RN - 12/24/2019 1:06 PM EST Family updated at this time, satisfied with information provided. documented in this encounter* Maribell Arriaga RN - 06/02/2020 1:30 PM EDT Discharge information given to the patient. Patient and family verbalized understanding of information. All questions were answered before discharge. Patient ambulated, denies dizziness or nausea. Tolerating PO fluids and crackers. Vital signs are stable. Patient has changed and is being discharged home in a wheelchair with valuables. documented in this encounter* Mavis Vidal RN - 09/01/2020 2:36 PM EST PT AND FAMILY VERBALIZED UNDERSTANDING OF HOMEGOING INSTRUCTIONS, PT VERBALIZED A READINESS TO BE DISCHARGED HOME. PT DISCHARGED HOME VIA WHEELCHAIR ACCOMPANIED BY RN. PT HAS HAD ALL THEIR BELONGINGSRETURNED TO THEM AT DISCHARGE * Bernard Bolton RN - 09/01/2020 1:37 PM EST Awake and alert. States pain is better at 1 of 10. Taking oral fluids well. Denies nausea. documented in this encounter Assessments Diagnosis Pre-op testing Preoperative examination, unspecified Diagnosis Dysphagia, unspecified type Diagnosis Hiatal hernia- Primary Diaphragmatic hernia without mention of obstruction or gangrene Chronic nausea Nausea alone Gastroesophageal reflux disease without esophagitis Esophageal reflux Diagnosis Chronic tonsillitis Advance Directives No Advanced Directives Records FoundDocuments on File Type Date Recorded Patient Die Cutter Diamond Expl anation Advance Directives and Living Will Power of Doctor Of Nursing Practice Latest Code Status on File Code Status Date Activated Date Inactivated Comments Full Code 12/04/2016 9:11 AM 12/04/2016 5:24 PM Latest Code Status on File Code Status Date Activated Date Inactivated Comments Full Code 12/24/2019 3:40 PM 12/25/2019 7:41 PM Full Code 12/24/2019 7:39 AM 12/24/2019 3:38 PM Full Code 12/04/2016 9:11 AM 12/04/2016 5:24 PM Documents on File Type Date Recorded Patient Die Cutter Diamond Expl anation Advance Directives and Living Will Power of Doctor Of Nursing Practice Latest Code Status on File Code Status Date Activated Date Inactivated Comments Full Code 02/23/2020 9:34 AM Full Code 12/24/2019 3:40 PM 12/25/2019 7:41 PM Full Code 12/24/2019 7:39 AM 12/24/2019 3:38 PM Full Code 12/04/2016 9:11 AM 12/04/2016 5:24 PM Latest Code Status on File Code Status Date Activated Date Inactivated Comments Full Code 12/24/2019 3:40 PM Latest Code Status on File Code Status Date Activated Date Inactivated Comments Full Code 06/02/2020 10:25 AM Full Code 02/23/2020 9:34 AM 02/23/2020 2:55 PM Documents on File Type Date Recorded Patient Die Cutter Diamond Expl anation ACP-Advance Directive ACP-Power of Doctor Of Nursing Practice Latest Code Status on File Code Status Date Activated Date Inactivated Comments Full Code 06/02/2020 10:25 AM 06/02/2020 3:50 PM Latest Code Status on File Code Status Date Activated Date Inactivated Comments Full Code 09/01/2020 10:43 AM Full Code 06/02/2020 10:25 AM 06/02/2020 3:50 PM Latest Code Status on File Code Status Date Activated Date Inactivated Comments Full Code 09/01/2020 10:43 AM 09/01/2020 4:48 PM Latest Code Status on File Code Status Date Activated Date Inactivated Comments Full Code 12/04/2016 9:11 AM 12/04/2016 5:24 PM Documents on File Type Date Recorded Patient Die Cutter Diamond Expl anation Advance Directive(s) 12/07/2021 7:02 AM Advance Directive(s) 04/14/2018 7:14 AM Documents on File Type Date Recorded Patient Die Cutter Diamond Expl anation Advance Directive(s) 12/07/2021 7:02 AM Advance Directive(s) 04/14/2018 7:14 AM Documents on File Type Date Recorded Patient Die Cutter Diamond Expl anation ACP-Advance Directive ACP-Power of Doctor Of Nursing Practice Latest Code Status on File Code Status Date Activated Date Inactivated Comments Full Code 09/01/2020 10:43 AM 09/01/2020 4:48 PM Full Code 06/02/2020 10:25 AM 06/02/2020 3:50 PM Full Code 02/23/2020 9:34 AM 02/23/2020 2:55 PM Full Code 12/24/2019 3:40 PM 12/25/2019 7:41 PM Documents on File Type Date Recorded Patient Die Cutter Diamond Expl anation Advance Directive(s) 02/14/2022 8:02 AM Advance Directive(s) 12/07/2021 7:02 AM Advance Directive(s) 04/14/2018 7:14 AM Documents on File Type Date Recorded Patient Die Cutter Diamond Expl anation Advance Directive(s) 02/14/2022 8:02 AM Advance Directive(s) 12/07/2021 7:02 AM Advance Directive(s) 04/14/2018 7:14 AM Latest Code Status on File Code Status Date Activated Date Inactivated Comments Full Code 05/01/2022 6:51 AM Full Code 09/01/2020 10:43 AM 09/01/2020 4:48 PM Documents on File Type Date Recorded Patient Die Cutter Diamond Expl anation Advance Directive(s) 04/18/2022 7:27 PM Advance Directive(s) 04/16/2022 1:55 PM Advance Directive(s) 02/14/2022 8:02 AM Advance Directive(s) 12/07/2021 7:02 AM Advance Directive(s) 04/14/2018 7:14 AM Documents on File Type Date Recorded Patient Die Cutter Diamond Expl anation Advance Directive(s) 04/18/2022 7:27 PM Advance Directive(s) 04/16/2022 1:55 PM Advance Directive(s) 02/14/2022 8:02 AM Advance Directive(s) 12/07/2021 7:02 AM Advance Directive(s) 04/14/2018 7:14 AM Latest Code Status on File Code Status Date Activated Date Inactivated Comments Full Code 12/31/2022 4:37 PM 01/01/2023 7:58 PM Full Code Order Discussed With: Patient Latest Code Status on File Code Status Date Activated Date Inactivated Comments Full Code 12/31/2022 4:37 PM 01/01/2023 7:58 PM Latest Code Status on File Code Status Date Activated Date Inactivated Comments Full Code 12/31/2022 4:37 PM 01/01/2023 7:58 PM Question Answer Comments Full Code Order Discussed With: Patient Latest Code Status on File Code Status Date Activated Date Inactivated Comments Full Code 12/31/2022 4:37 PM 01/01/2023 7:58 PM Question Answer Comments Full Code Order Discussed With: Patient Latest Code Status on File Code Status Date Activated Date Inactivated Comments Full Code 12/31/2022 4:37 PM 01/01/2023 7:58 PM Question Answer Comments Full Code Order Discussed With: Patient Date Activated Date Inactivated Comments 12/31/2022 4:37 PM 01/01/2023 7:58 PM Question Answer Comments Full Code Order Discussed With: Patient Date Activated Date Inactivated Comments 12/31/2022 4:37 PM 01/01/2023 7:58 PM Question Answer Comments Full Code Order Discussed With: Patient Summary Purpose Family History No Family History Records FoundNo Family History Records FoundNo Family History Records FoundNo Family History Records FoundNo Family History Records FoundNo Family History Records FoundNo Family History Records FoundNo Family History Records Found Medications Administered Section Inactive Administered Medications - up to 3 most recent administrations Medication Order MAR Action Action Date Dose Rate Site lactated ringers iv infusion 30 mL/hr, INTRAVENOUS, CONTINUOUS, Starting on Pushpa 12/20/22 at 1300, Until Sat12/21/22 at 0303, Preprocedure New Bag/Syringe/Bottle 12/20/2022 12:59 PM EST 30 mL/hr 30 mL/hr Inactive Administered Medications - up to 3 most recent administrations Medication Order MAR Action Action Date Dose Rate Site lactated ringers iv infusion 30 mL/hr, INTRAVENOUS, CONTINUOUS, Starting on Pushpa 05/09/23 at 1300, Until Pushpa 05/09/23 at 1436, Preprocedure New Bag/Syringe/Bottle 05/09/2023 1:08 PM EDT 30 mL/hr 30 mL/hr Health Concerns Infection Onset Date Last Indicated Resolved Time COVID-19 Rule-Out 12/31/2022 12/31/2022 12/31/2022 10:24 PM EDT Additional Source Comments INFORMATION SOURCE (unrecogn ized section and content) DATE CREATED AUTHOR 01/16/2021 [facility] DATE CREATED AUTHOR AUTHOR'S ORGANIZ ATION 05/17/2022 [facility] DATE CREATED AUTHOR AUTHOR'S ORGANIZ ATION 11/23/2022 [facility] DATE CREATED AUTHOR AUTHOR'S ORGANIZ ATION 12/22/2023 [facility] DATE CREATED AUTHOR AUTHOR'S ORGANIZ ATION 09/06/2024 [facility] DATE CREATED AUTHOR AUTHOR'S ORGANIZ ATION 09/06/2024 [place] DATE CREATED AUTHOR AUTHOR'S ORGANIZ ATION 07/29/2025 [facility] DATE CREATED AUTHOR AUTHOR'S ORGANIZ ATION 08/28/2025 [facility] Reason for Visit (unrecogniz ed section and content) Reason Comments Flank Pain right flank pain wit h nausea Reason Comments New Patient Evaluation Reason Comments Scheduling Reason Comments Establish Care asking for referral re: thyroid Reason Comments Established Patient Reason Comments Patient Update Reason Comments Returning Patient's Call PT RTN missed c all Reason Comments Orders K[facility] from [facility] [id number] [place] about PT needing to have covid test sharee do to will be staying overnight for surg w/Deborah on Saturday Reason Comments Established Patient Reason Comments Patient Update Preparations for desi josee Reason Comments Medical Clearance Reason Comments Results Reason Comments Pre-Op Exam Reason Comments pre op paperwork Asking if pre op for m could be filled out with labs and faxed back Reason Comments Appointment Reason Onset Date Comments Transition Of Care 07/04/2022 [facility] Hospital Discharge 07/03/22 Reason Comments right hip pain x 2 months Reason Comments Established Patient Reason Comments Appointment EGD/Yo/Mano Reason Comments Hip Pain Reason Comments PHOTOS TAKEN Reason Comments Consult Bilat Breast Reducti on Reason Comments Pain New Referred by Taylor Willard Specialty Diagnoses / Procedures Referred By Contac t Referred To Contact Orthopedics Diagnoses Right hip pain Procedures CONSULT TO ORTHOPAEDICS OFFICE/OUTPATIENT NEW HIGH MDM 60-74 MINUTES Taylor Willard, OPERATIONS ADMINISTRATOR.CUSTOMER SERVICES MANAGER [address] [place] [address] Referral ID Status Reason Start Date Expiration Date V isits Requested Visits Authorized [id number] Closed PCP Requested Referral 11/22/2022 11/22/2023 1 1 Specialty Diagnoses / Procedures Referred By Contac t Referred To Contact Diagnoses Esophageal dysphagia Procedures ESOPHAGEAL MOTILITY STUDY W/INTERP&RPT ESOPHAGEAL MANOMETRY Ak Endo [address] [place] [address] Referral ID Status Reason Start Date Expiration Date Visits Re quested Visits Authorized [id number] 1 1 Reason Comments Established Patient Reason Comments Patient Update PATIENT IS AWARE TO BE HERE at 10:15 ON Asher Reason Comments Post Op Discuss Breast reduc tion surgery Reason Onset Date Comments Transition Of Care 01/02/2023 TCM Initial A [facility] Discharge 01/01/23 Reason Comments Hospital Follow Up Reason Comments Post Op Follow Up Reason Comments Clearance for surgery Appointment Reason Comments Consult Reason Comments Post Op Marking, reduction Reason Comments Post Op Reason Comments Physical Reason Comments Forms From [place] Reason Comments Follow Up Reason Comments New Patient Low Back Pain Right Hip Pain Reason Comments Future Appointment Left Voice Mail Specialty Diagnoses / Procedures Referred By Contac t Referred To Contact Pain Management Diagnoses Right hip pain Procedures CONSULT TO PAIN MGT OFFICE/OUTPATIENT NEW HIGH MDM 60-74 MINUTES Gildardo Hayes MD [address] [place] [address] Referral ID Status Reason Start Date Expiration Date V isits Requested Visits Authorized [id number] Closed PCP Requested Referral 02/23/2023 02/23/2024 1 1 Reason Comments New Patient Right knee pain Specialty Diagnoses / Procedures Referred By Contac t Referred To Contact Radiology Diagnoses Patellar instability of right knee Patellofemoral arthritis of right knee Procedures MR knee right wo contrast Carlos Lewis MD [address] [facility] [address] [place] [address] Referral ID Status Reason Start Date Expiration Date Visits Re quested Visits Authorized [id number] Closed 01/28/2024 01/27/2025 1 1 Reason Comments Follow-up Right knee MRI resul ts Reason Comments Follow-up Right knee pain Reason Comments New Patient Right knee pain Reason Comments Obesity Reason Comments Weight Problem Reason Comments Radiology Mammogram Specialty Diagnoses / Procedures Referred By Contac t Referred To Contact BR IMAGING Diagnoses Encounter for screening mammogram for breast cancer Procedures RAMIRO SCREENING W MONSERRAT SCREENING DIGITAL BREAST TOMOSYNTHESIS BI SCREENING MAMMOGRAPHY BI 2-VIEW BREAST INC CAD Luis Hart MD [address] [place] [address] [facility] [address] [place] [address] Referral ID Status Reason Start Date Expiration Date V isits Requested Visits Authorized [id number] Closed Auto-Generate d Referral 07/08/2024 08/07/2025 1 1 Reason Comments Follow Up Low Back Pain Tailbone Right Hip Pain Reason Comments Chronic Pain Specialty Diagnoses / Procedures Referred By Josemanuel louis Referred To Contact CT IMAGING Diagnoses Disorder of bone Sacral pain Procedures CT SACRUM/COCCYX WO IVCON CT PELVIS W/O CONTRAST MATERIAL Lindsey Clay PA-C [address] [place] [address] [place] [address] Referral ID Status Reason Start Date Expiration Date V isits Requested Visits Authorized [id number] Closed Auto-Generate d Referral 08/27/2024 10/26/2024 1 1 Ordered Prescriptions (unrec ognized section and content) Prescription Sig Dispensed Refills Start Date End Da te ondansetron (ZOFRAN ODT) 4 MG disintegrating tablet Take 1 tablet by mouth every 8 hours as needed for Nausea 10 tablet 0 07/14/2021 naproxen (NAPROSYN) 500 MG tablet Take 1 tablet by mouth 2 times daily (with meals) 14 tablet 0 07/14/2021 Prescription Sig Dispensed Refills Start Date End Da te HYDROcodone-acetaminophe n (NORCO) 5-325 MG per tabletIndications:S/P hysterectomy Take 1 tablet by mouth every 6 hours as needed for Pain for up to 3 days. Intended supply: 3 days. Take lowest dose possible to manage pain 20 tablet 0 05/01/2022 05/04/2022 ibuprofen (ADVIL;MOTRIN) 600 MG tablet Take 1 tablet by mouth 3 times daily as needed for Pain 30 tablet 0 05/01/2022 Scheduled Active and Recently Administ ered Medications (unrecognized section and content) Medication Order 07/12/2021 07/13/2021 07/14/2021 ketorolac (TORADOL) injection 15 mg (COMPLETED) 15 mg, IntraVENous, ONCE, On Sat07/14/21 at 1536, For 1 dose, Do not administer for more than 5 days. 155 (Given - Provid er: Julienne Ramirez RN) ondansetron (ZOFRAN) injection 4 mg (COMPLETED) 4 mg, IntraVENous, ONCE, On Sat07/14/21 at 1536, For 1 dose 155 (Given - Provid er: Julienne Ramirez RN) sodium chloride flush 0.9 % injection 3 mL(Linked Group 1) 3 mL, IntraVENous, EVERY 8 HOURS, First dose on Sat07/14/21 at 1536, Flush line with 3-5 mL 1553 (Given by Other - Provider: Julienne Ramirez RN - Comment: given by Medic with IV start)2336 (Due) Linked Groups Order Group 1: Saline lock IV (COMPLETED) Routine, CONTINUOUS, Starting on Sat07/14/21 at 1545, Until Specified And sodium chloride flush 0.9 % injection 3 mLJump to med 3 mL, IntraVENous, EVERY 8 HOURS, First dose on Sat07/14/21 at 1536
Flush line with 3-5 mL
Scheduled Medication Order 04/29/2022 04/30/2022 05/01/2022 acetaminophen (TYLENOL) tablet 1,000 mg (COMPLETED) 1,000 mg, Oral, ONCE, 1 dose, On Sat05/01/22 at 0630, Maximum dose of acetaminophen is 4000 mg from all sources in 24 hours. Do not administer if patient has taken tylenol <4 hours earlier. Do not give if contraindicated ie. patient has active liver disease or cirrhosis., Pre-op (day of surgery) 0648 (Given - Provid er: Rogerio Fields RN) aprepitant (EMEND) capsule 40 mg (COMPLETED) 40 mg, Oral, ONCE, 1 dose, On Sat05/01/22 at 0730, Pre-op (day of surgery) 0714 (Given - Provid er: Rogerio Fields RN) ceFAZolin (ANCEF) 2000 mg in dextrose 4 % 100 mL IVPB (premix) (COMPLETED) 2,000 mg, IntraVENous, INBOUND INGREDIENT LOGISTICS SPECIALIST TO O.R., 1 dose, On Sat05/01/22 at 0715, Antimicrobial Indications: Surgical Prophylaxis, Administer within 1 hour prior to incision. Recommend to repeat in 3-4 hours after initial dose if still intra-op., Pre-op (day of surgery) 0816 (New Bag - Prov ider: Latonya Watson RN - Comment: given in OR)0846 (Due: Stopped - Provider: Latonya Watson RN) famotidine (PEPCID) tablet 20 mg (COMPLETED) 20 mg, Oral, ONCE, 1 dose, On Sat05/01/22 at 0630, Pre-op (day of surgery) 0648 (Given - Provid er: Rogerio Fields RN) gabapentin (NEURONTIN) capsule 100 mg (COMPLETED) 100 mg, Oral, ONCE, 1 dose, On Sat05/01/22 at 0630, For Age >69, or Low GFR, Pre-op (day of surgery) 0648 (Given - Provid er: Rogerio Fields RN) LORazepam (ATIVAN) injection 0.5 mg 0.5 mg, IntraVENous, ONCE, 1 dose, On Sat05/01/22 at 1030, PACU only 1030 (Due) sodium chloride flush 0.9 % injection 5-40 mL 5-40 mL, IntraVENous, EVERY 12 HOURS SCHEDULED (2 times per day), First dose on Sat05/01/22 at 0900, Until Discontinued, For Line Patency: Peripheral IV = 5 mL; Midline or Central Line = 10 mL/lumen. If following IV push medication, administer flush at same rate as the IV push. Flush volume is determined by type of infusion therapy being given. For non-viscous solutions use: Peripheral IV = 5 mL Midline or Central Line = 10 mL/lumen For viscous solutions (i.e. blood components, parenteral nutrition, contrast media, or after obtaining blood sample) use: Peripheral IV = 10 mL Midline or Central Line = 20 mL/lumen, Pre-op (day of surgery) 0900 (Due)2100 (Due) sodium chloride flush 0.9 % injection 5-40 mL 5-40 mL, IntraVENous, EVERY 12 HOURS SCHEDULED (2 times per day), First dose on Sat05/01/22 at 1030, Until Discontinued, For Line Patency: Peripheral IV = 5 mL; Midline or Central Line = 10 mL/lumen. If following IV push medication, administer flush at same rate as the IV push. Flush volume is determined by type of infusion therapy being given. For non-viscous solutions use: Peripheral IV = 5 mL Midline or Central Line = 10 mL/lumen For viscous solutions (i.e. blood components, parenteral nutrition, contrast media, or after obtaining blood sample) use: Peripheral IV = 10 mL Midline or Central Line = 20 mL/lumen, PACU only 1030 (Due)2100 (Due) Continuous Medication Order 04/29/2022 04/30/2022 05/01/2022 lactated ringers infusion IntraVENous, at 50 mL/hr, CONTINUOUS, Starting on Sat05/01/22 at 0630, Upon admission to sameday - please start iv if patient does not have iv access. Use 500ml NS for patients on dialysis., Pre-op (day of surgery) 0647 (New Bag - Prov ider: Rogerio Fields RN) lactated ringers infusion IntraVENous, at 50 mL/hr, CONTINUOUS, Starting on Sat05/01/22 at 1030, PACU only 1030 (Due) PRN Medication Order 04/29/2022 04/30/2022 05/01/2022 0.9 % sodium chloride bolus 500 mL (5.74 mL/kg), IntraVENous, at 1,000 mL/hr, Administer over 0.5 Hours, PRN, Anti-nausea, Starting on Sat05/01/22 at 1006, PACU only 0.9 % sodium chloride infusion IntraVENous, at 5-250 mL/hr, PRN, if patient receiving piggyback infusions and maintenance fluids are not ordered OR KVO fluids to protect IV site / prevent frequent line interruptions/ long duration, Starting on Sat05/01/22 at 0609, For piggyback infusion, administer at same rate as piggyback for a total of 25 mL. Enter 25 mL into dose field and piggyback rate into rate field of order. If piggyback is infusing at a rate less than 100 mL/hr, enter 25 mL into dose field and 100 mL/hr into rate field of order. For KVO fluids, enter rate of 20 mL/hr or less into rate field of order., Pre-op (day of surgery) 0.9 % sodium chloride infusion IntraVENous, at 5-250 mL/hr, PRN, if patient receiving piggyback infusions and maintenance fluids are not ordered OR KVO fluids to protect IV site / prevent frequent line interruptions/ long duration, Starting on Sat05/01/22 at 0651, For piggyback infusion, administer at same rate as piggyback for a total of 25 mL. Enter 25 mL into dose field and piggyback rate into rate field of order. If piggyback is infusing at a rate less than 100 mL/hr, enter 25 mL into dose field and 100 mL/hr into rate field of order. For KVO fluids, enter rate of 20 mL/hr or less into rate field of order., Pre-op (day of surgery) ALPRAZolam (NIRAVAM) dissolvable tablet 0.25 mg 0.25 mg, Oral, PRN, Starting on Sat05/01/22 at 0609, Until Discontinued, Anxiety, Pre-op (day of surgery) diphenhydrAMINE (BENADRYL) injection 12.5 mg 12.5 mg, IntraVENous, ONCE PRN, 1 dose, Starting on Sat05/01/22 at 1006, Until Sat05/01/22 at 2359, Itching, PACU only hydrALAZINE (APRESOLINE) injection 5 mg(Linked Group 1) 5 mg, IntraVENous, EVERY 10 MIN PRN, 2 doses, Starting on Sat05/01/22 at 1006, Until Discontinued, High Blood Pressure, for SBP greater than 160 mmHg for 2 consecutive measurements taken from different sites, PRN for SBP > 160 for 2 consecutive measurements, and if one of the following conditions is met: 1) If IV labetolol is ineffective. 2) If HR is under 60. 3) If patient has heart block, COPD or asthma. If both labetalol and hydralazine ineffective, notify anesthesiologist. for use Sameday and, PACU only HYDROmorphone (DILAUDID) injection 0.25 mg HYDROmorphone (DILAUDID) 1.5mg IV is equivalent to morphine 10mg IV, 0.25 mg, IntraVENous, EVERY 5 MIN PRN, 4 doses, Starting on Sat05/01/22 at 1006, Until Discontinued, Pain Moderate (4-6), Phase I and Phase II- Initial therapy for moderate pain (4-6). Restricted to a 90 minute time frame starting when the patient can verbally state their pain score. If oral meds are utilized, do not return to initial therapy medications. SDS and, PACU only HYDROmorphone (DILAUDID) injection 0.5 mg HYDROmorphone (DILAUDID) 1.5mg IV is equivalent to morphine 10mg IV, 0.5 mg, IntraVENous, EVERY 5 MIN PRN, 4 doses, Starting on Sat05/01/22 at 1006, Until Discontinued, Pain Severe (7-10), Phase I or Phase II- Initial therapy for severe pain (7-10). Restricted to a 90 minute time frame starting when the patient can verbally state their pain score. If oral meds are utilized, do not return to initial therapy medications. SDS and, PACU only 1054 (Given - Provid er: Latonya Watson RN) labetalol (NORMODYNE;TRANDATE) injection 5 mg(Linked Group 1) 5 mg, IntraVENous, EVERY 10 MIN PRN, 2 doses, Starting on Sat05/01/22 at 1006, Until Discontinued, High Blood Pressure, for SBP greater than 160 mmHg for 2 consecutive measurements taken from different sites., PRN for SBP >160 for 2 consecutive measurements, if HR is 60 or greater. If beta cipriano is contraindicated (HR less than 60, heart block, COPD or asthma) use hydralazine IV order. for use Sameday and, PACU only lidocaine PF 1 % injection 1 mL 1 mL, IntraDERmal, ONCE PRN, 1 dose, Starting on Sat05/01/22 at 0609, Until Sat05/01/22 at 2359, IV start, Pre-op (day of surgery) meperidine (DEMEROL) injection 12.5 mg 12.5 mg, IntraVENous, EVERY 5 MIN PRN, 4 doses, Starting on Sat05/01/22 at 1006, Until Discontinued, Shivering, , May give every 5 minutes to max of 50mg., PACU only 1119 (Given - Provid er: Latonya Watson RN) ondansetron (ZOFRAN) injection 4 mg (COMPLETED) 4 mg, IntraVENous, ONCE PRN, 1 dose, Starting on Sat05/01/22 at 1006, Until Sat05/01/22 at 2359, Nausea, Initial antiemetic therapy., PACU only 1054 (Given - Provid er: Latonya Watson RN) oxyCODONE (ROXICODONE) immediate release tablet 5 mg (COMPLETED) 5 mg, Oral, PRN, 1 dose, Starting on Sat05/01/22 at 1006, Until Sat05/01/22 at 2359, Pain Moderate (4-6), PHASE II, PACU only 1414 (Given - Provid er: Latonya Watson RN) sodium chloride flush 0.9 % injection 5-40 mL 5-40 mL, IntraVENous, PRN, Starting on Sat05/01/22 at 0609, Until Discontinued, Line Care, After every IV line use, For Line Patency: Peripheral IV = 5 mL; Midline or Central Line = 10 mL/lumen. If following IV push medication, administer flush at same rate as the IV push. Flush volume is determined by type of infusion therapy being given. For non-viscous solutions use: Peripheral IV = 5 mL Midline or Central Line = 10 mL/lumen For viscous solutions (i.e. blood components, parenteral nutrition, contrast media, or after obtaining blood sample) use: Peripheral IV = 10 mL Midline or Central Line = 20 mL/lumen, Pre-op (day of surgery) sodium chloride flush 0.9 % injection 5-40 mL 5-40 mL, IntraVENous, PRN, Starting on Sat05/01/22 at 0651, Until Discontinued, Line Care, After every IV line use, For Line Patency: Peripheral IV = 5 mL; Midline or Central Line = 10 mL/lumen. If following IV push medication, administer flush at same rate as the IV push. Flush volume is determined by type of infusion therapy being given. For non-viscous solutions use: Peripheral IV = 5 mL Midline or Central Line = 10 mL/lumen For viscous solutions (i.e. blood components, parenteral nutrition, contrast media, or after obtaining blood sample) use: Peripheral IV = 10 mL Midline or Central Line = 20 mL/lumen, Pre-op (day of surgery) sodium chloride flush 0.9 % injection 5-40 mL 5-40 mL, IntraVENous, PRN, Starting on Sat05/01/22 at 1006, Until Discontinued, Line Care, After every IV line use, For Line Patency: Peripheral IV = 5 mL; Midline or Central Line = 10 mL/lumen. If following IV push medication, administer flush at same rate as the IV push. Flush volume is determined by type of infusion therapy being given. For non-viscous solutions use: Peripheral IV = 5 mL Midline or Central Line = 10 mL/lumen For viscous solutions (i.e. blood components, parenteral nutrition, contrast media, or after obtaining blood sample) use: Peripheral IV = 10 mL Midline or Central Line = 20 mL/lumen, PACU only Linked Groups Order Group 1: labetalol (NORMODYNE;TRANDATE) injection 5 mgJump to med 5 mg, IntraVENous, EVERY 10 MIN PRN, 2 doses, Starting on Sat05/01/22 at 1006, Until Discontinued, High Blood Pressure, for SBP greater than 160 mmHg for 2 consecutive measurements taken from different sites.
PRN for SBP >160 for 2 consecutive measurements, if HR is 60 or greater. If beta cipriano is contraindicated (HR less than 60, heart block, COPD or asthma) use hydralazine IV order. for use Sameday and
PACU only Or hydrALAZINE (APRESOLINE) injection 5 mgJump to med 5 mg, IntraVENous, EVERY 10 MIN PRN, 2 doses, Starting on Sat05/01/22 at 1006, Until Discontinued, High Blood Pressure, for SBP greater than 160 mmHg for 2 consecutive measurements taken from different sites
PRN for SBP > 160 for 2 consecutive measurements, and if one of the following conditions is met: 1) If IV labetolol is ineffective. 2) If HR is under 60. 3) If patient has heart block, COPD or asthma. If both labetalol and hydralazine ineffective, notify anesthesiologist. for use and
PACU only Continuous Medication Order 12/18/2022 12/19/2022 12/20/2022 lactated ringers iv infusion 30 mL/hr, INTRAVENOUS, CONTINUOUS, Starting on Sat12/20/22 at 1300, Until Sat12/21/22 at 0303, Preprocedure 1259 (New Bag/Syring e/Bottle - Provider: Delores Seo RN) PRN Medication Order 12/18/2022 12/19/2022 12/20/2022 lidocaine 2 % topical gel (XYLOCAINE) (CANCELED) X (OR/PROCEDURE) PRN, Starting on Sat12/20/22 at 1314, Until Sat12/20/22 at 1331, Intraprocedure 1314 (Given - Provid er: Yanna Laboy RN - Comment: VIA RIGHT NARES) NaCl 0.9% irrigation solution (CANCELED) X (OR/PROCEDURE) PRN, Starting on Pushpa 3 at 1324, Until Pushpa 3 at 1331, Intraprocedure 1324 (Given - Provid er: Yanna Laboy RN) Source Comments (unrecognize d section and content) In the event this informatio n is protected by the Federal Confidentiality of Alcohol and Drug Abuse Patient Records regulations: The Federal rules restrict any use of the information to criminally investigate or prosecute any alcohol or drug abuse patient.[facility] the event this information is protected by the Federal Confidentiality of Alcohol and Drug Abuse Patient Records regulations: The Federal rules restrict any use of the information to criminally investigate or prosecute any alcohol or drug abuse patient.[facility]In the event this information is protected by the Federal Confidentiality of Alcohol and Drug Abuse Patient Records regulations: The Federal rules restrict any use of the information to criminally investigate or prosecute any alcohol or drug abuse patient.[facility]In the event this information is protected by the Federal Confidentiality of Alcohol and Drug Abuse Patient Records regulations: The Federal rules restrict any use of the information to criminally investigate or prosecute any alcohol or drug abuse patient.[facility]In the event this information is protected by the Federal Confidentiality of Alcohol and Drug Abuse Patient Records regulations: The Federal rules restrict any use of the information to criminally investigate or prosecute any alcohol or drug abuse patient.[facility]In the event this information is protected by the Federal Confidentiality of Alcohol and Drug Abuse Patient Records regulations: The Federal rules restrict any use of the information to criminally investigate or prosecute any alcohol or drug abuse patient.[facility]In the event this information is protected by the Federal Confidentiality of Alcohol and Drug Abuse Patient Records regulations: The Federal rules restrict any use of the information to criminally investigate or prosecute any alcohol or drug abuse patient.[facility]In the event this information is protected by the Federal Confidentiality of Alcohol and Drug Abuse Patient Records regulations: The Federal rules restrict any use of the information to criminally investigate or prosecute any alcohol or drug abuse patient.[facility]In the event this information is protected by the Federal Confidentiality of Alcohol and Drug Abuse Patient Records regulations: The Federal rules restrict any use of the information to criminally investigate or prosecute any alcohol or drug abuse patient.[facility]In the event this information is protected by the Federal Confidentiality of Alcohol and Drug Abuse Patient Records regulations: The Federal rules restrict any use of the information to criminally investigate or prosecute any alcohol or drug abuse patient.[facility]In the event this information is protected by the Federal Confidentiality of Alcohol and Drug Abuse Patient Records regulations: The Federal rules restrict any use of the information to criminally investigate or prosecute any alcohol or drug abuse patient.[facility]In the event this information is protected by the Federal Confidentiality of Alcohol and Drug Abuse Patient Records regulations: The Federal rules restrict any use of the information to criminally investigate or prosecute any alcohol or drug abuse patient.[facility]In the event this information is protected by the Federal Confidentiality of Alcohol and Drug Abuse Patient Records regulations: The Federal rules restrict any use of the information to criminally investigate or prosecute any alcohol or drug abuse patient.[facility]In the event this information is protected by the Federal Confidentiality of Alcohol and Drug Abuse Patient Records regulations: The Federal rules restrict any use of the information to criminally investigate or prosecute any alcohol or drug abuse patient.[facility]In the event this information is protected by the Federal Confidentiality of Alcohol and Drug Abuse Patient Records regulations: The Federal rules restrict any use of the information to criminally investigate or prosecute any alcohol or drug abuse patient.[facility]In the event this information is protected by the Federal Confidentiality of Alcohol and Drug Abuse Patient Records regulations: The Federal rules restrict any use of the information to criminally investigate or prosecute any alcohol or drug abuse patient.[facility]In the event this information is protected by the Federal Confidentiality of Alcohol and Drug Abuse Patient Records regulations: The Federal rules restrict any use of the information to criminally investigate or prosecute any alcohol or drug abuse patient.[facility]In the event this information is protected by the Federal Confidentiality of Alcohol and Drug Abuse Patient Records regulations: The Federal rules restrict any use of the information to criminally investigate or prosecute any alcohol or drug abuse patient.[facility]In the event this information is protected by the Federal Confidentiality of Alcohol and Drug Abuse Patient Records regulations: The Federal rules restrict any use of the information to criminally investigate or prosecute any alcohol or drug abuse patient.[facility]In the event this information is protected by the Federal Confidentiality of Alcohol and Drug Abuse Patient Records regulations: The Federal rules restrict any use of the information to criminally investigate or prosecute any alcohol or drug abuse patient.[facility]In the event this information is protected by the Federal Confidentiality of Alcohol and Drug Abuse Patient Records regulations: The Federal rules restrict any use of the information to criminally investigate or prosecute any alcohol or drug abuse patient.[facility]In the event this information is protected by the Federal Confidentiality of Alcohol and Drug Abuse Patient Records regulations: The Federal rules restrict any use of the information to criminally investigate or prosecute any alcohol or drug abuse patient.[facility]In the event this information is protected by the Federal Confidentiality of Alcohol and Drug Abuse Patient Records regulations: The Federal rules restrict any use of the information to criminally investigate or prosecute any alcohol or drug abuse patient.[facility]In the event this information is protected by the Federal Confidentiality of Alcohol and Drug Abuse Patient Records regulations: The Federal rules restrict any use of the information to criminally investigate or prosecute any alcohol or drug abuse patient.[facility]In the event this information is protected by the Federal Confidentiality of Alcohol and Drug Abuse Patient Records regulations: The Federal rules restrict any use of the information to criminally investigate or prosecute any alcohol or drug abuse patient.[facility]In the event this information is protected by the Federal Confidentiality of Alcohol and Drug Abuse Patient Records regulations: The Federal rules restrict any use of the information to criminally investigate or prosecute any alcohol or drug abuse patient.[facility]In the event this information is protected by the Federal Confidentiality of Alcohol and Drug Abuse Patient Records regulations: The Federal rules restrict any use of the information to criminally investigate or prosecute any alcohol or drug abuse patient.[facility]In the event this information is protected by the Federal Confidentiality of Alcohol and Drug Abuse Patient Records regulations: The Federal rules restrict any use of the information to criminally investigate or prosecute any alcohol or drug abuse patient.[facility]In the event this information is protected by the Federal Confidentiality of Alcohol and Drug Abuse Patient Records regulations: The Federal rules restrict any use of the information to criminally investigate or prosecute any alcohol or drug abuse patient.[facility]In the event this information is protected by the Federal Confidentiality of Alcohol and Drug Abuse Patient Records regulations: The Federal rules restrict any use of the information to criminally investigate or prosecute any alcohol or drug abuse patient.[facility]In the event this information is protected by the Federal Confidentiality of Alcohol and Drug Abuse Patient Records regulations: The Federal rules restrict any use of the information to criminally investigate or prosecute any alcohol or drug abuse patient.[facility]In the event this information is protected by the Federal Confidentiality of Alcohol and Drug Abuse Patient Records regulations: The Federal rules restrict any use of the information to criminally investigate or prosecute any alcohol or drug abuse patient.[facility]In the event this information is protected by the Federal Confidentiality of Alcohol and Drug Abuse Patient Records regulations: The Federal rules restrict any use of the information to criminally investigate or prosecute any alcohol or drug abuse patient.[facility]In the event this information is protected by the Federal Confidentiality of Alcohol and Drug Abuse Patient Records regulations: The Federal rules restrict any use of the information to criminally investigate or prosecute any alcohol or drug abuse patient.[facility]In the event this information is protected by the Federal Confidentiality of Alcohol and Drug Abuse Patient Records regulations: The Federal rules restrict any use of the information to criminally investigate or prosecute any alcohol or drug abuse patient.[facility]In the event this information is protected by the Federal Confidentiality of Alcohol and Drug Abuse Patient Records regulations: The Federal rules restrict any use of the information to criminally investigate or prosecute any alcohol or drug abuse patient.[facility] HospitalIn the event this information is protected by the Federal Confidentiality of Alcohol and Drug Abuse Patient Records regulations: The Federal rules restrict any use of the information to criminally investigate or prosecute any alcohol or drug abuse patient.[facility] HospitalIn the event this information is protected by the Federal Confidentiality of Alcohol and Drug Abuse Patient Records regulations: The Federal rules restrict any use of the information to criminally investigate or prosecute any alcohol or drug abuse patient.[facility]In the event this information is protected by the Federal Confidentiality of Alcohol and Drug Abuse Patient Records regulations: The Federal rules restrict any use of the information to criminally investigate or prosecute any alcohol or drug abuse patient.[facility]In the event this information is protected by the Federal Confidentiality of Alcohol and Drug Abuse Patient Records regulations: The Federal rules restrict any use of the information to criminally investigate or prosecute any alcohol or drug abuse patient.[facility] HospitalIn the event this information is protected by the Federal Confidentiality of Alcohol and Drug Abuse Patient Records regulations: The Federal rules restrict any use of the information to criminally investigate or prosecute any alcohol or drug abuse patient.[facility]In the event this information is protected by the Federal Confidentiality of Alcohol and Drug Abuse Patient Records regulations: The Federal rules restrict any use of the information to criminally investigate or prosecute any alcohol or drug abuse patient.[facility]In the event this information is protected by the Federal Confidentiality of Alcohol and Drug Abuse Patient Records regulations: The Federal rules restrict any use of the information to criminally investigate or prosecute any alcohol or drug abuse patient.[facility]In the event this information is protected by the Federal Confidentiality of Alcohol and Drug Abuse Patient Records regulations: The Federal rules restrict any use of the information to criminally investigate or prosecute any alcohol or drug abuse patient.[facility] HospitalIn the event this information is protected by the Federal Confidentiality of Alcohol and Drug Abuse Patient Records regulations: The Federal rules restrict any use of the information to criminally investigate or prosecute any alcohol or drug abuse patient.[facility] HospitalIn the event this information is protected by the Federal Confidentiality of Alcohol and Drug Abuse Patient Records regulations: The Federal rules restrict any use of the information to criminally investigate or prosecute any alcohol or drug abuse patient.[facility] HospitalIn the event this information is protected by the Federal Confidentiality of Alcohol and Drug Abuse Patient Records regulations: The Federal rules restrict any use of the information to criminally investigate or prosecute any alcohol or drug abuse patient.[facility]In the event this information is protected by the Federal Confidentiality of Alcohol and Drug Abuse Patient Records regulations: The Federal rules restrict any use of the information to criminally investigate or prosecute any alcohol or drug abuse patient.[facility] HospitalIn the event this information is protected by the Federal Confidentiality of Alcohol and Drug Abuse Patient Records regulations: The Federal rules restrict any use of the information to criminally investigate or prosecute any alcohol or drug abuse patient.[facility] HospitalIn the event this information is protected by the Federal Confidentiality of Alcohol and Drug Abuse Patient Records regulations: The Federal rules restrict any use of the information to criminally investigate or prosecute any alcohol or drug abuse patient.[facility] HospitalIn the event this information is protected by the Federal Confidentiality of Alcohol and Drug Abuse Patient Records regulations: The Federal rules restrict any use of the information to criminally investigate or prosecute any alcohol or drug abuse patient.[facility] HospitalIn the event this information is protected by the Federal Confidentiality of Alcohol and Drug Abuse Patient Records regulations: The Federal rules restrict any use of the information to criminally investigate or prosecute any alcohol or drug abuse patient.[facility] HospitalIn the event this information is protected by the Federal Confidentiality of Alcohol and Drug Abuse Patient Records regulations: The Federal rules restrict any use of the information to criminally investigate or prosecute any alcohol or drug abuse patient.[facility]In the event this information is protected by the Federal Confidentiality of Alcohol and Drug Abuse Patient Records regulations: The Federal rules restrict any use of the information to criminally investigate or prosecute any alcohol or drug abuse patient.[facility] HospitalIn the event this information is protected by the Federal Confidentiality of Alcohol and Drug Abuse Patient Records regulations: The Federal rules restrict any use of the information to criminally investigate or prosecute any alcohol or drug abuse patient.[facility] HospitalIn the event this information is protected by the Federal Confidentiality of Alcohol and Drug Abuse Patient Records regulations: The Federal rules restrict any use of the information to criminally investigate or prosecute any alcohol or drug abuse patient.[facility] HospitalIn the event this information is protected by the Federal Confidentiality of Alcohol and Drug Abuse Patient Records regulations: The Federal rules restrict any use of the information to criminally investigate or prosecute any alcohol or drug abuse patient.[facility] HospitalIn the event this information is protected by the Federal Confidentiality of Alcohol and Drug Abuse Patient Records regulations: The Federal rules restrict any use of the information to criminally investigate or prosecute any alcohol or drug abuse patient.[facility] HospitalIn the event this information is protected by the Federal Confidentiality of Alcohol and Drug Abuse Patient Records regulations: The Federal rules restrict any use of the information to criminally investigate or prosecute any alcohol or drug abuse patient.[facility] HospitalIn the event this information is protected by the Federal Confidentiality of Alcohol and Drug Abuse Patient Records regulations: The Federal rules restrict any use of the information to criminally investigate or prosecute any alcohol or drug abuse patient.[facility] HospitalIn the event this information is protected by the Federal Confidentiality of Alcohol and Drug Abuse Patient Records regulations: The Federal rules restrict any use of the information to criminally investigate or prosecute any alcohol or drug abuse patient.[facility] HospitalIn the event this information is protected by the Federal Confidentiality of Alcohol and Drug Abuse Patient Records regulations: The Federal rules restrict any use of the information to criminally investigate or prosecute any alcohol or drug abuse patient.[facility] HospitalIn the event this information is protected by the Federal Confidentiality of Alcohol and Drug Abuse Patient Records regulations: The Federal rules restrict any use of the information to criminally investigate or prosecute any alcohol or drug abuse patient.[facility] HospitalIn the event this information is protected by the Federal Confidentiality of Alcohol and Drug Abuse Patient Records regulations: The Federal rules restrict any use of the information to criminally investigate or prosecute any alcohol or drug abuse patient.[facility] HospitalIn the event this information is protected by the Federal Confidentiality of Alcohol and Drug Abuse Patient Records regulations: The Federal rules restrict any use of the information to criminally investigate or prosecute any alcohol or drug abuse patient.[facility] HospitalIn the event this information is protected by the Federal Confidentiality of Alcohol and Drug Abuse Patient Records regulations: The Federal rules restrict any use of the information to criminally investigate or prosecute any alcohol or drug abuse patient.[facility] HospitalIn the event this information is protected by the Federal Confidentiality of Alcohol and Drug Abuse Patient Records regulations: The Federal rules restrict any use of the information to criminally investigate or prosecute any alcohol or drug abuse patient.[facility] HospitalIn the event this information is protected by the Federal Confidentiality of Alcohol and Drug Abuse Patient Records regulations: The Federal rules restrict any use of the information to criminally investigate or prosecute any alcohol or drug abuse patient.[facility] HospitalIn the event this information is protected by the Federal Confidentiality of Alcohol and Drug Abuse Patient Records regulations: The Federal rules restrict any use of the information to criminally investigate or prosecute any alcohol or drug abuse patient.[facility] HospitalIn the event this information is protected by the Federal Confidentiality of Alcohol and Drug Abuse Patient Records regulations: The Federal rules restrict any use of the information to criminally investigate or prosecute any alcohol or drug abuse patient.[facility] HospitalIn the event this information is protected by the Federal Confidentiality of Alcohol and Drug Abuse Patient Records regulations: The Federal rules restrict any use of the information to criminally investigate or prosecute any alcohol or drug abuse patient.[facility] HospitalIn the event this information is protected by the Federal Confidentiality of Alcohol and Drug Abuse Patient Records regulations: The Federal rules restrict any use of the information to criminally investigate or prosecute any alcohol or drug abuse patient.[facility]In the event this information is protected by the Federal Confidentiality of Alcohol and Drug Abuse Patient Records regulations: The Federal rules restrict any use of the information to criminally investigate or prosecute any alcohol or drug abuse patient.[facility]In the event this information is protected by the Federal Confidentiality of Alcohol and Drug Abuse Patient Records regulations: The Federal rules restrict any use of the information to criminally investigate or prosecute any alcohol or drug abuse patient.[facility]In the event this information is protected by the Federal Confidentiality of Alcohol and Drug Abuse Patient Records regulations: The Federal rules restrict any use of the information to criminally investigate or prosecute any alcohol or drug abuse patient.[facility]In the event this information is protected by the Federal Confidentiality of Alcohol and Drug Abuse Patient Records regulations: The Federal rules restrict any use of the information to criminally investigate or prosecute any alcohol or drug abuse patient.[facility]In the event this information is protected by the Federal Confidentiality of Alcohol and Drug Abuse Patient Records regulations: The Federal rules restrict any use of the information to criminally investigate or prosecute any alcohol or drug abuse patient.[facility]In the event this information is protected by the Federal Confidentiality of Alcohol and Drug Abuse Patient Records regulations: The Federal rules restrict any use of the information to criminally investigate or prosecute any alcohol or drug abuse patient.[facility]In the event this information is protected by the Federal Confidentiality of Alcohol and Drug Abuse Patient Records regulations: The Federal rules restrict any use of the information to criminally investigate or prosecute any alcohol or drug abuse patient.[facility]In the event this information is protected by the Federal Confidentiality of Alcohol and Drug Abuse Patient Records regulations: The Federal rules restrict any use of the information to criminally investigate or prosecute any alcohol or drug abuse patient.[facility]In the event this information is protected by the Federal Confidentiality of Alcohol and Drug Abuse Patient Records regulations: The Federal rules restrict any use of the information to criminally investigate or prosecute any alcohol or drug abuse patient.[facility]In the event this information is protected by the Federal Confidentiality of Alcohol and Drug Abuse Patient Records regulations: The Federal rules restrict any use of the information to criminally investigate or prosecute any alcohol or drug abuse patient.[facility]In the event this information is protected by the Federal Confidentiality of Alcohol and Drug Abuse Patient Records regulations: The Federal rules restrict any use of the information to criminally investigate or prosecute any alcohol or drug abuse patient.[facility]In the event this information is protected by the Federal Confidentiality of Alcohol and Drug Abuse Patient Records regulations: The Federal rules restrict any use of the information to criminally investigate or prosecute any alcohol or drug abuse patient.[facility]In the event this information is protected by the Federal Confidentiality of Alcohol and Drug Abuse Patient Records regulations: The Federal rules restrict any use of the information to criminally investigate or prosecute any alcohol or drug abuse patient.[facility]In the event this information is protected by the Federal Confidentiality of Alcohol and Drug Abuse Patient Records regulations: The Federal rules restrict any use of the information to criminally investigate or prosecute any alcohol or drug abuse patient.[facility]In the event this information is protected by the Federal Confidentiality of Alcohol and Drug Abuse Patient Records regulations: The Federal rules restrict any use of the information to criminally investigate or prosecute any alcohol or drug abuse patient.[facility]In the event this information is protected by the Federal Confidentiality of Alcohol and Drug Abuse Patient Records regulations: The Federal rules restrict any use of the information to criminally investigate or prosecute any alcohol or drug abuse patient.[facility]In the event this information is protected by the Federal Confidentiality of Alcohol and Drug Abuse Patient Records regulations: The Federal rules restrict any use of the information to criminally investigate or prosecute any alcohol or drug abuse patient.[facility]In the event this information is protected by the Federal Confidentiality of Alcohol and Drug Abuse Patient Records regulations: The Federal rules restrict any use of the information to criminally investigate or prosecute any alcohol or drug abuse patient.[facility]In the event this information is protected by the Federal Confidentiality of Alcohol and Drug Abuse Patient Records regulations: The Federal rules restrict any use of the information to criminally investigate or prosecute any alcohol or drug abuse patient.[facility]In the event this information is protected by the Federal Confidentiality of Alcohol and Drug Abuse Patient Records regulations: The Federal rules restrict any use of the information to criminally investigate or prosecute any alcohol or drug abuse patient.[facility]In the event this information is protected by the Federal Confidentiality of Alcohol and Drug Abuse Patient Records regulations: The Federal rules restrict any use of the information to criminally investigate or prosecute any alcohol or drug abuse patient.[facility]In the event this information is protected by the Federal Confidentiality of Alcohol and Drug Abuse Patient Records regulations: The Federal rules restrict any use of the information to criminally investigate or prosecute any alcohol or drug abuse patient.[facility]In the event this information is protected by the Federal Confidentiality of Alcohol and Drug Abuse Patient Records regulations: The Federal rules restrict any use of the information to criminally investigate or prosecute any alcohol or drug abuse patient.[facility]In the event this information is protected by the Federal Confidentiality of Alcohol and Drug Abuse Patient Records regulations: The Federal rules restrict any use of the information to criminally investigate or prosecute any alcohol or drug abuse patient.[facility]In the event this information is protected by the Federal Confidentiality of Alcohol and Drug Abuse Patient Records regulations: The Federal rules restrict any use of the information to criminally investigate or prosecute any alcohol or drug abuse patient.[facility]In the event this information is protected by the Federal Confidentiality of Alcohol and Drug Abuse Patient Records regulations: The Federal rules restrict any use of the information to criminally investigate or prosecute any alcohol or drug abuse patient.[facility]In the event this information is protected by the Federal Confidentiality of Alcohol and Drug Abuse Patient Records regulations: The Federal rules restrict any use of the information to criminally investigate or prosecute any alcohol or drug abuse patient.[facility]In the event this information is protected by the Federal Confidentiality of Alcohol and Drug Abuse Patient Records regulations: The Federal rules restrict any use of the information to criminally investigate or prosecute any alcohol or drug abuse patient.[facility]In the event this information is protected by the Federal Confidentiality of Alcohol and Drug Abuse Patient Records regulations: The Federal rules restrict any use of the information to criminally investigate or prosecute any alcohol or drug abuse patient.[facility]In the event this information is protected by the Federal Confidentiality of Alcohol and Drug Abuse Patient Records regulations: The Federal rules restrict any use of the information to criminally investigate or prosecute any alcohol or drug abuse patient.[facility]In the event this information is protected by the Federal Confidentiality of Alcohol and Drug Abuse Patient Records regulations: The Federal rules restrict any use of the information to criminally investigate or prosecute any alcohol or drug abuse patient.[facility]In the event this information is protected by the Federal Confidentiality of Alcohol and Drug Abuse Patient Records regulations: The Federal rules restrict any use of the information to criminally investigate or prosecute any alcohol or drug abuse patient.[facility]In the event this information is protected by the Federal Confidentiality of Alcohol and Drug Abuse Patient Records regulations: The Federal rules restrict any use of the information to criminally investigate or prosecute any alcohol or drug abuse patient.[facility] Care Teams (unrecognized sec tion and content) Broaching Machine Operator Relationship Specialty Start Date End Date Leonie Estrella MD PCP - General Family Practice 03/05/18 Broaching Machine Operator Relationship Specialty Start Date End Date Leonie Estrella MD PCP - General Family Practice 03/05/18 Broaching Machine Operator Relationship Specialty Start Date End Date Leonie Estrella MD PCP - General Family Practice 03/05/18 Broaching Machine Operator Relationship Specialty Start Date End Date Leonie Estrella MD PCP - General Family Practice 03/05/18 Broaching Machine Operator Relationship Specialty Start Date End Date Logan Thomas MD [address], [address] [place], [place] [id number] PCP - General Family Medicine 07/20/19 Broaching Machine Operator Relationship Specialty Start Date End Date Leonie Estrella MD PCP - General Family Practice 03/05/18 Broaching Machine Operator Relationship Specialty Start Date End Date Leonie Estrella MD PCP - General Family Practice 03/05/18 Broaching Machine Operator Relationship Specialty Start Date End Date Luis Hart MD [address] [place] [address] PCP - General Internal Medicine 03/02/22 Broaching Machine Operator Relationship Specialty Start Date End Date Luis Hart MD [address] [place] [address] PCP - General Internal Medicine 03/02/22 Broaching Machine Operator Relationship Specialty Start Date End Date Luis Hart MD [address] [place] [address] PCP - General Internal Medicine 03/02/22 Broaching Machine Operator Relationship Specialty Start Date End Date Luis Hart MD [address] [place] [address] PCP - General Internal Medicine 03/02/22 Broaching Machine Operator Relationship Specialty Start Date End Date Luis Hart MD [address] [place] [address] PCP - General Internal Medicine 03/02/22 Broaching Machine Operator Relationship Specialty Start Date End Date Luis Hart MD [address] [place] [address] PCP - General Internal Medicine 03/02/22 Broaching Machine Operator Relationship Specialty Start Date End Date Logan Thomas MD [address] [place] [address] PCP - General Family Medicine 07/20/19 Broaching Machine Operator Relationship Specialty Start Date End Date Logan Thomas MD [address] [place] [address] PCP - General Family Medicine 07/20/19 Broaching Machine Operator Relationship Specialty Start Date End Date Logan Thomas [address] [facility] [place] [place] [address] PCP - General Family Practice 04/16/22 Broaching Machine Operator Relationship Specialty Start Date End Date Luis Hart MD [address] [place] [address] PCP - General Internal Medicine 03/02/22 04/15/22 Logan Thomas [address] [facility] [place] [address] PCP - General Family Practice 04/16/22 Broaching Machine Operator Relationship Specialty Start Date End Date Logan Thomas [address] [facility] [place] [address] PCP - General Family Practice 04/16/22 Broaching Machine Operator Relationship Specialty Start Date End Date Luis Hart MD [address] [place] [address] PCP - General Internal Medicine 06/22/22 Broaching Machine Operator Relationship Specialty Start Date End Date Logan Thomas [address] [facility] [place] [address] PCP - General Family Practice 04/16/22 06/21/22 Luis Hart MD [address] [place] [address] PCP - General Internal Medicine 06/22/22 Broaching Machine Operator Relationship Specialty Start Date End Date Luis Hart MD [address] [place] [address] PCP - General Internal Medicine 06/22/22 Broaching Machine Operator Relationship Specialty Start Date End Date Luis Hart MD [address] [place] [address] PCP - General Internal Medicine 06/22/22 Broaching Machine Operator Relationship Specialty Start Date End Date Luis Hart MD [address] [place] [address] PCP - General Internal Medicine 06/22/22 Broaching Machine Operator Relationship Specialty Start Date End Date Luis Hart MD [address] [place] [address] PCP - General Internal Medicine 06/22/22 Broaching Machine Operator Relationship Specialty Start Date End Date Luis Hart MD [address] [place] [address] PCP - General Internal Medicine 06/22/22 Broaching Machine Operator Relationship Specialty Start Date End Date Luis Hart MD [address] [place] [address] PCP - General Internal Medicine 06/22/22 Broaching Machine Operator Relationship Specialty Start Date End Date Luis Hart MD [address] [place] [address] PCP - General Internal Medicine 06/22/22 Broaching Machine Operator Relationship Specialty Start Date End Date Luis Hart MD [address] [place] [address] PCP - General Internal Medicine 06/22/22 Broaching Machine Operator Relationship Specialty Start Date End Date Luis Hart MD [address] [place] [address] PCP - General Internal Medicine 06/22/22 Broaching Machine Operator Relationship Specialty Start Date End Date Luis Hart MD [address] [place] [address] PCP - General Internal Medicine 06/22/22 Broaching Machine Operator Relationship Specialty Start Date End Date Luis Hart MD [address] [place] [address] PCP - General Internal Medicine 06/22/22 Broaching Machine Operator Relationship Specialty Start Date End Date Luis Hart MD [address] [place] [address] PCP - General Internal Medicine 06/22/22 Broaching Machine Operator Relationship Specialty Start Date End Date Luis Hart MD [address] [place] [address] PCP - General Internal Medicine 06/22/22 Broaching Machine Operator Relationship Specialty Start Date End Date Luis Hart MD [address] [place] [address] PCP - General Internal Medicine 06/22/22 Broaching Machine Operator Relationship Specialty Start Date End Date Luis Hart MD [address] [place] [address] PCP - General Internal Medicine 06/22/22 Broaching Machine Operator Relationship Specialty Start Date End Date Luis Hart MD [address] [place] [address] PCP - General Internal Medicine 06/22/22 Broaching Machine Operator Relationship Specialty Start Date End Date Luis Hart MD [address] [place] [address] PCP - General Internal Medicine 06/22/22 Broaching Machine Operator Relationship Specialty Start Date End Date Luis Hart MD [address] [place] [address] PCP - General Internal Medicine 06/22/22 Broaching Machine Operator Relationship Specialty Start Date End Date Luis Hart MD [address] [place] [address] PCP - General Internal Medicine 06/22/22 Broaching Machine Operator Relationship Specialty Start Date End Date Luis Hart MD [address] [place] [address] PCP - General Internal Medicine 06/22/22 Broaching Machine Operator Relationship Specialty Start Date End Date Luis Hart MD [address] [place] [address] PCP - General Internal Medicine 06/22/22 Broaching Machine Operator Relationship Specialty Start Date End Date Luis Hart MD [address] [place] [address] PCP - General Internal Medicine 06/22/22 Broaching Machine Operator Relationship Specialty Start Date End Date Luis Hart MD [address] [place] [address] PCP - General Internal Medicine 06/22/22 Broaching Machine Operator Relationship Specialty Start Date End Date Logan Thomas [address] [place] [address], [place] [id number] PCP - General Family Medicine 04/16/22 06/21/22 Luis Hart MD [address] [place] [address] PCP - General Internal Medicine 06/22/22 Broaching Machine Operator Relationship Specialty Start Date End Date Luis Hart MD [address] [place] [address] PCP - General Internal Medicine 06/22/22 Broaching Machine Operator Relationship Specialty Start Date End Date Luis Hart MD [address] [place] [address] PCP - General Internal Medicine 06/22/22 Broaching Machine Operator Relationship Specialty Start Date End Date Luis Hart MD [address] [place] [address] PCP - General Internal Medicine 06/22/22 Broaching Machine Operator Relationship Specialty Start Date End Date Luis Hart MD [address] [place] [address] PCP - General Internal Medicine 06/22/22 Broaching Machine Operator Relationship Specialty Start Date End Date Luis Hart MD [address] [place] [address] PCP - General Internal Medicine 06/22/22 Broaching Machine Operator Relationship Specialty Start Date End Date Luis Hart MD [address] [place] [address] PCP - General Internal Medicine 06/22/22 Broaching Machine Operator Relationship Specialty Start Date End Date Luis Hart MD [address] [place] [address] PCP - General Internal Medicine 06/22/22 Broaching Machine Operator Relationship Specialty Start Date End Date Luis Hart MD [address] [place] [address] PCP - General Internal Medicine 06/22/22 Broaching Machine Operator Relationship Specialty Start Date End Date Luis Hart MD [address] [place] [address] PCP - General Internal Medicine 06/22/22 Broaching Machine Operator Relationship Specialty Start Date End Date Luis Hart MD [address] [place] [address] PCP - General Internal Medicine 06/22/22 Broaching Machine Operator Relationship Specialty Start Date End Date Luis Hart MD [address] [place] [address] PCP - General Internal Medicine 06/22/22 Broaching Machine Operator Relationship Specialty Start Date End Date Luis Hart MD [address] [place] [address] PCP - General Internal Medicine 06/22/22 Broaching Machine Operator Relationship Specialty Start Date End Date Luis Hart MD [address] [place] [address] PCP - General Internal Medicine 06/22/22 Broaching Machine Operator Relationship Specialty Start Date End Date Luis Hart MD [address] [place] [address] PCP - General Internal Medicine 06/22/22 Broaching Machine Operator Relationship Specialty Start Date End Date Luis Hart MD [address] [place] [address] PCP - General Internal Medicine 06/22/22 Broaching Machine Operator Relationship Specialty Start Date End Date Dariela Dent APRN - ELECTRIC FRYING PAN REPAIRER [address] [place] [address] PCP - General Family Medicine 12/31/22 Broaching Machine Operator Relationship Specialty Start Date End Date Older, Dariela Ana, OPERATIONS ADMINISTRATOR - ELECTRIC FRYING PAN REPAIRER [address] [place] [address] PCP - General Family Medicine 12/31/22 Broaching Machine Operator Relationship Specialty Start Date End Date Older, Dariela Ana OPERATIONS ADMINISTRATOR - ELECTRIC FRYING PAN REPAIRER [address] [facility] [place] [address] PCP - General Family Medicine 12/31/22 Broaching Machine Operator Relationship Specialty Start Date End Date Older, Dariela Ana, OPERATIONS ADMINISTRATOR - ELECTRIC FRYING PAN REPAIRER [address] [place] [address] PCP - General Family Medicine 12/31/22 Broaching Machine Operator Relationship Specialty Start Date End Date Older, Dariela Ana OPERATIONS ADMINISTRATOR - ELECTRIC FRYING PAN REPAIRER [address] [place] [address] PCP - General Family Medicine 12/31/22 Broaching Machine Operator Relationship Specialty Start Date End Date Older, Dariela Ana OPERATIONS ADMINISTRATOR - ELECTRIC FRYING PAN REPAIRER [address] [place] [address] PCP - General Family Medicine 12/31/22 Broaching Machine Operator Relationship Specialty Start Date End Date Luis Hart MD [address] [place] [address] PCP - General Internal Medicine 06/22/22 Broaching Machine Operator Relationship Specialty Start Date End Date Luis Hart MD [address] [place] [address] PCP - General Internal Medicine 06/22/22 Broaching Machine Operator Relationship Specialty Start Date End Date Luis Hart MD [address] [place] [address] PCP - General Internal Medicine 06/22/22 Broaching Machine Operator Relationship Specialty Start Date End Date Luis Hart MD [address] [place] [address] PCP - General Internal Medicine 06/22/22 Broaching Machine Operator Relationship Specialty Start Date End Date Luis Hart MD [address] [place] [address] PCP - General Internal Medicine 06/22/22 Broaching Machine Operator Relationship Specialty Start Date End Date Luis Hart MD [address] [place] [address] PCP - General Internal Medicine 06/22/22 Broaching Machine Operator Relationship Specialty Start Date End Date Luis Hart MD [address] [place] [address] PCP - General Internal Medicine 06/22/22 Broaching Machine Operator Relationship Specialty Start Date End Date Luis Hart MD [address] [place] [address] PCP - General Internal Medicine 06/22/22 Broaching Machine Operator Relationship Specialty Start Date End Date Luis Hart MD [address] [place] [address] PCP - General Internal Medicine 06/22/22 Broaching Machine Operator Relationship Specialty Start Date End Date Luis Hart MD [address] [place] [address] PCP - General Internal Medicine 06/22/22 Broaching Machine Operator Relationship Specialty Start Date End Date Luis Hart MD [address] [place] [address] PCP - General Internal Medicine 06/22/22 Broaching Machine Operator Relationship Specialty Start Date End Date Luis Hart MD [address] [place] [address] PCP - General Internal Medicine 06/22/22 Broaching Machine Operator Relationship Specialty Start Date End Date Luis Hart MD [address] [place] [address] PCP - General Internal Medicine 06/22/22 Broaching Machine Operator Relationship Specialty Start Date End Date Luis Hart MD [address] [place] [address] PCP - General Internal Medicine 06/22/22 Dariela Singletary, OPERATIONS ADMINISTRATOR.FINANCIAL MANAGER [address] [place] [address] Delivery And Mail Sorter Internal Medicine 09/28/24 Broaching Machine Operator Relationship Specialty Start Date End Date Luis Hart MD [address] [place] [address] PCP - General Internal Medicine 06/22/22 Dariela Singletary, OPERATIONS ADMINISTRATOR.FINANCIAL MANAGER [address] [place] [address] Delivery And Mail Sorter Internal Medicine 09/28/24 Broaching Machine Operator Relationship Specialty Start Date End Date Luis Hart MD [address] [place] [address] PCP - General Internal Medicine 06/22/22 Dariela Singletary, OPERATIONS ADMINISTRATOR.FINANCIAL MANAGER [address] [place] [address] Delivery And Mail Sorter Internal Medicine 09/28/24 Broaching Machine Operator Relationship Specialty Start Date End Date Luis Hart MD [address] [facility] [place] [address] PCP - General Internal Medicine 06/22/22 Dariela Singletary, OPERATIONS ADMINISTRATOR.FINANCIAL MANAGER [address] [place] [address] Delivery And Mail Sorter Internal Medicine 09/28/24 Broaching Machine Operator Relationship Specialty Start Date End Date Luis Hart MD [address] [place] [address] PCP - General Internal Medicine 06/22/22 Dariela Singletary, OPERATIONS ADMINISTRATOR.FINANCIAL MANAGER [address] [place] [address] [facility] Internal Medicine 09/28/24 Broaching Machine Operator Relationship Specialty Start Date End Date Luis Hart MD [address] [place] [address] PCP - General Internal Medicine 06/22/22 Darilea Singletary, OPERATIONS ADMINISTRATOR.FINANCIAL MANAGER [address] [place] [address] [facility] Internal Medicine 09/28/24 Broaching Machine Operator Relationship Specialty Start Date End Date Luis Hart MD [address] [place] [address] PCP - General Internal Medicine 06/22/22 Dariela Singletary, OPERATIONS ADMINISTRATOR.FINANCIAL MANAGER [address] [place] [address] [facility] Internal Medicine 09/28/24 Broaching Machine Operator Relationship Specialty Start Date End Date Luis Hart MD [address] [place] [address] PCP - General Internal Medicine 06/22/22 Dariela Singletary, OPERATIONS ADMINISTRATOR.FINANCIAL MANAGER [address] [facility] [place] [address] [facility] Internal Medicine 09/28/24 Broaching Machine Operator Relationship Specialty Start Date End Date Luis Hart MD [address] [facility] [place] [address] PCP - General Internal Medicine 06/22/22 Dariela Singletary, OPERATIONS ADMINISTRATOR.FINANCIAL MANAGER [address] [place] [address] [facility] Internal Medicine 09/28/24 Broaching Machine Operator Relationship Specialty Start Date End Date Luis Hart MD [address] [place] [address] PCP - General Internal Medicine 06/22/22 Dariela Singletary, OPERATIONS ADMINISTRATOR.FINANCIAL MANAGER [address] [facility] [place] [address] [facility] Internal Medicine 09/28/24 FOR RECORDS PERTAINING TO PATIENTS WHO ARE OR HAVE BEEN ENROLLED IN A CHEMICAL DEPENDENCY/SUBSTANCEABUSE PROGRAM, SOME INFORMATION MAY BE OMITTED. This clinical summary was aggregated from multiple sources. Caution should be exercised in using it in the provision of clinical care. This summary normalizes information from multiple sources, and as a consequence, information in this document may materially change the coding, format and clinical context of patient data. In addition, data may be omitted in some cases. CLINICAL DECISIONS SHOULD BE BASED ON THE PRIMARY CLINICAL RECORDS. [facility] [employer] [facility] provides no warranty or guarantee of the accuracy or completeness of information in this document.
[2025-10-17 22:46] VITALS: BP 130/90; PULSE 83; RESP 13; O2SAT 100
[2025-10-17 22:48] LABS: D-Dimer Quantitative (DVT/PE) 0.27 FEU/ug/m (0.27-0.49)
[2025-10-17 23:00] VITALS: BP 108/78; PULSE 75; RESP 14; O2SAT 100
[2025-10-18] VITALS: BP 112/72; PULSE 80; RESP 98; O2SAT 13
[2025-10-18 00:40] LABS: Troponin T High Sens 2 HR < 6 ng/L (<=14)
[2025-10-18 01:27] VITALS: BP 107/89; PULSE 81; RESP 12; TEMP 36.7; O2SAT 100
== END 2025-10-18 01:28 | disposition home or self-care (01) ==
PROVIDERS: Emergency Provider Emergency Medicine; PCP Internal Medicine; Visit Provider Emergency Medicine
DX: R07.9 Chest pain, unspecified (principal); R00.0 Tachycardia, unspecified; Z90.49 Acquired absence of other specified parts of digestive tract
CPT/HCPCS: 71045; 80048; 84484; 85025; 85379; 93005; 96360; 96361; 99284; A4216